=== PATIENT | female | born 1950 | race Caucasian/White ===

== ENCOUNTER 2016-07-30 09:42 | Observation (INO) | payer OTHER ==
[2016-07-13 13:33] VITALS: BMI 38.0; BMI 40.0
--- NOTE | 2016-07-13 14:22 | PAT Medication Instructions ---
Service Date Jul 13, 2016. Current Home Medication List Albuterol (Proair Hfa), 2 PUFFS INH Q4H PRN for Wheezing Anastrozole (Anastrozole), 1 MG PO QAM Aspirin (Aspirin Ec), 81 MG PO QAM Azithromycin (Zithromax), 250 MG PO UD PRN for Rescue Kit Diltiazem Hcl Ext Rel (Tiazac), 120 MG PO QAM Fish Oil ([place]-3), 1 CAP PO QAM Fluticasone Prop/Salmeterol (Advair Diskus 250/50 60 Dose), 1 PUFF INH QAM Furosemide (Furosemide), 20 MG PO QAM Insulin Aspart (Novolog Flexpen), 1 DOSE SC UD Insulin Glargine (Lantus), 75 UNITS SC AMPM Ipratropium-Albuterol (Duoneb), 1 TREATMENT INH Q4H PRN for Cough or Wheezing Levothyroxine Sodium (Levothyroxine Sodium), 100 MCG PO QAM Lisinopril (Lisinopril), 10 MG PO QAM Metoprolol Tartrate (Lopressor) (Lopressor), 12.5 MG PO BID Potassium (Potassium), 99 MG PO QAM Prednisone (Prednisone), 40 MG PO UD PRN for Rescue Kit Saline (Eq Saline Nasal [place]), 1 SPRAY NA BID PRN for Nasal Congestion Topiramate (Topamax ), 50 MG PO QAM Vitamin E (E-400-Clear), 1 CAP PO QAM Medication Instructions For Your Scheduled Surgery - Hold the following medications 2 weeks prior to surgery: Fish Oil ([place]-3), 1 CAP PO QAM Vitamin E (E-400-Clear), 1 CAP PO QAM - Hold the following medications 1 week prior to surgery per surgeon's instructions: Aspirin (Aspirin Ec), 81 MG PO QAM - Hold the following medications the morning of surgery: Furosemide (Furosemide), 20 MG PO QAM Insulin Aspart (Novolog Flexpen), 1 DOSE SC UD Potassium (Potassium), 99 MG PO QAM Lisinopril (Lisinopril), 10 MG PO QAM - Take the following medications the morning of surgery with a sip of water OTHERWISE NOTHING TO EAT OR DRINK AFTER MIDNIGHT: Albuterol (Proair Hfa), 2 PUFFS INH Q4H PRN for Wheezing (use if needed; BRING TO HOSPITAL) Anastrozole (Anastrozole), 1 MG PO QAM Diltiazem Hcl Ext Rel (Tiazac), 120 MG PO QAM Fluticasone Prop/Salmeterol (Advair Diskus 250/50 60 Dose), 1 PUFF INH QAM Metoprolol Tartrate (Lopressor) (Lopressor), 12.5 MG PO BID Levothyroxine Sodium (Levothyroxine Sodium), 100 MCG PO QAM Topiramate (Topamax ), 50 MG PO QAM Saline (Eq Saline Nasal [place]), 1 SPRAY NA BID PRN for Nasal Congestion Ipratropium-Albuterol (Duoneb), 1 TREATMENT INH Q4H PRN for Cough or Wheezing - Take the following medications as scheduled the night before surgery: Albuterol (Proair Hfa), 2 PUFFS INH Q4H PRN for Wheezing Insulin Glargine (Lantus), 75 UNITS SC AMPM Fluticasone Prop/Salmeterol (Advair Diskus 250/50 60 Dose), 1 PUFF INH QAM Insulin Aspart (Novolog Flexpen), 1 DOSE SC UD Metoprolol Tartrate (Lopressor) (Lopressor), 12.5 MG PO BID Saline (Eq Saline Nasal [place]), 1 SPRAY NA BID PRN for Nasal Congestion Ipratropium-Albuterol (Duoneb), 1 TREATMENT INH Q4H PRN for Cough or Wheezing -Check Blood Sugar AM of Surgery: -IF blood sugar is greater than 150, take HALF of usual morning dose of Lantus -IF blood sugar is less than 150, do not take any Lantus If you have any questions please call us at [phone] or [phone] or [phone]
--- NOTE | 2016-07-20 10:52 | Anesthesiology Progress Note ---
Anesthesia Progress Note Date of Service Jul 20, 2016. Progress Notes PCP note from 07/17 reviewed. Spoke with patient regarding medication changes. Insulin Lantus was switched to Insulin Degludec 150 units SC daily. Medication list updated. Patient advised to check glucose AM of surgery and if greater than 150, to take half of usual Insulin Degludec dose; and if glucose less than 150, to hold Insulin Degludec AM of surgery. Patient voiced understanding and all questions/concerns were addressed. Deepali Mendez PA-C
[2016-07-30] VITALS (10 sets, daily range): BP systolic 115–153; BP diastolic 55–77; PULSE 66–90; TEMP 36.4–36.7; O2SAT 93–97; BMI 40.0
[~2016-07-30] VITALS: Ht 170.2 cm; Wt 116.0 kg
[~2016-07-30 09:42] MED LIST: ADVIN25/60 INH; ALBU1AER9 INH; ANAS1TAB19 PO; ASPI81TA28 PO; AZIT250T PO; CEFAZOLIN 2000 MG/60 ML D5W IV SCH; DILT120C68 PO; FISHOIL PO; INSU1INJ33 SC; IPRASOL4 INH; LACTATED RINGER'S 1000ML 1,000 ML IV SCH; LEVO100T7 PO; LISI-461 PO; LSX20 PO; METO25TA56 PO; NVLGI/PEN SC; POTA99TA PO; PRED20TA PO; TOPI25TA99 PO; [UNRECOGNIZED DRUG - CODE]; [UNRECOGNIZED DRUG - CODE] PO
[2016-07-30] MEDS ORDERED: PROPOFOL IV EMULSION 10 MG/ML 20 ML VIAL IV ONE (10:18)
[2016-07-30] MEDS ORDERED: ROCURONIUM BROMIDE 10 MG/ML 5 ML VIAL ONE (10:18)
[2016-07-30] MEDS ORDERED: FENTANYL CITRATE INJ 50 MCG/1 ML 2 ML VIAL ONE (10:18)
[2016-07-30] MEDS ORDERED: GLYCOPYRROLATE INJ 0.2 MG/ML VIAL ONE (10:18)
[2016-07-30] MEDS ORDERED: NEOSTIGMINE METHYLSULFATE 5 MG/5 ML SYR ONE (10:18)
[2016-07-30] MEDS ORDERED: ONDANSETRON INJ 2 MG/ML 2 ML VIAL ONE (10:18)
[2016-07-30] MEDS ORDERED: DEXAMETHASONE SOD INJ 4 MG/ML VIAL ONE (10:18)
[2016-07-30] MEDS ORDERED: MIDAZOLAM HCL 1 MG/ML 2ML VIAL ONE (10:18)
[2016-07-30] MEDS ORDERED: LIDOCAINE HCL 2% 2 ML VIAL (20MG/ML) ONE (10:18)
--- NOTE | 2016-07-30 10:42 | History & Physical Bridge Note ---
H&P Re-Evaluation Bridge Note: I have examined the patient, reviewed the History & Physical and in the interval since the performance of the History & Physical I have noted the following changes of clinical significance: No changes noted
[2016-07-30] MEDS ORDERED: HEPARIN SOD (PORCINE) 1000 UNIT/ML 10 ML VIAL ONE (12:39)
[2016-07-30] MEDS ORDERED: BUPIVACAINE 0.5 % 5 MG/1 ML MPF 30ML VIAL ONE (12:40)
[2016-07-30] MEDS ORDERED: ONDANSETRON INJ 2 MG/ML 2 ML VIAL IV PRN ×2 (12:45→16:15)
[2016-07-30] MEDS ORDERED: EpHEDrine SULFATE INJ 50 MG/ML AMP IV PRN (12:45)
[2016-07-30] MEDS ORDERED: ATROPINE SULFATE 0.1 MG/ML 5ML SYR IV PRN (12:45)
[2016-07-30] MEDS ORDERED: PROMETHAZINE HCL INJ 6.25 MG in SODIUM CHLORIDE 0.9% 50ML 50 ML IV PRN (12:45)
[2016-07-30] MEDS ORDERED: CEFAZOLIN SOD 1 GM VIAL ONE (13:02)
[2016-07-30] MEDS: FENTANYL CITRATE INJ 50 MCG/1 ML 2 ML VIAL IV PRN ×2 (15:12→15:50)
[2016-07-30] MEDS ORDERED: SODIUM CHLORIDE 0.9% 1000ML 1,000 ML IV SCH (16:04)
--- NOTE | 2016-07-30 16:04 | [facility] Post Operative Brief Note ---
Immediate Operative Summary Operative Date Jul 30, 2016. Pre-Operative Diagnosis Abdominal pain and cholelithiasis Post-Operative Diagnosis Abdominal pain and cholelithiasis Procedure(s) Performed laparoscopic cholecystectomy Surgeon Dr Power Hall Automatic Maintainer Surgeon(s) Tyson MATA Estimated Blood Loss 5ML Findings See dictation Specimens A: Gallbladder Drains None Anesthesia General Complication(s) None Disposition Recovery Room / PACU
--- NOTE | 2016-07-30 16:07 | Discharge Instructions ---
Discharge Instructions Admission Reason for Admission: Abdominal Pain, Cholelithiasis Discharge Discharge Diagnosis / Problem: Same Discharge Goals Goal(s): Decrease discomfort Activity Recommendations Activity Limitations: per Instructions/Follow-up section Lifting Limitations: no more than 10 pounds Shower/Bathe: tomorrow (Shower only) . Instructions / Follow-Up Instructions / Follow-Up Post-Surgical ~ Discharge Instructions Activity Recommendations: - lifting limitation: (10 pounds for 2 weeks), - exercise/sex/sports limit: (nonstrenuous for 2 weeks), - driving or machine use limit: (none for 1 week), - Shower/bathe limit: (may shower beginning tomorrow) Diet: - Resume previous diet SPECIAL CARE INSTRUCTIONS: - May shower in 24 hours. Let water run over area and pat dry. - Call the surgeon's office with any questions or concerns - - (ex. temperature higher than 101 degrees F, excessive bleeding or pain). MEDICATIONS: - Resume previous medications unless instructed otherwise by your surgeon. - Ibuprofen 600 mg every 6 hours with food - Percocet 1 every 4 hours, as needed for pain FOLLOW UP VISIT: - If not already scheduled, please call the office to schedule a two week follow-up appointment. Office number Current Hospital Diet Patient's current hospital diet: Discharge Diet Recommended Diet: Diabetes Type 2 Diet Procedures Procedures Performed: laparoscopic cholecystectomy Pending Studies Studies pending at discharge: no Medical Emergencies . Who to Call and When: Medical Emergencies: If at any time you feel your situation is an emergency, please call 911 immediately. . Non-Emergent Contact Non-Emergency issues call your: Primary Care Provider, Surgeon Call Non-Emergent contact if: your pain is worsening, wound has increased redness, wound has increased pain . "Provider Documentation" section prepared by Power Hall. VTE Core Measure Inpt VTE Proph given/why not?: Treatment not indicated
[2016-07-30] MEDS ORDERED: OXYCODONE/ACETAMINOPHEN 5-325 TAB PO PRN (16:15)
[2016-07-30] MEDS ORDERED: MoRPHine SULFATE 4 MG/ML 1 ML CARP\\VIAL IV PRN (16:15)
[2016-07-30] MEDS: HYDROmorphone INJ 1 MG/ML SYR IV PRN ×3 (16:19→16:29)
[2016-07-30] MEDS ORDERED: KETOROLAC TROMETHAMINE 30 MG/ML VIAL ONE (16:38)
[2016-07-30] MEDS ORDERED: ACETAMINOPHEN 1000 MG/100 ML IV IV ONE ×2 (16:38→16:45)
[2016-07-30] MEDS ORDERED: KETOROLAC TROMETHAMINE 30 MG/ML VIAL IV. PRN (16:45)
--- NOTE | 2016-07-30 17:14 | Anesthesiology Progress Note ---
Anesthesia Post Op Note Date & Time Jul 30, 2016 at 17:13 Vital Signs Pain Intensity: 6 Vital Signs Past 12 Hours Date Time Temp Pulse Resp B/P Pulse Ox O2 Delivery O2 Flow Rate FiO2 07/30/16 17:00 36.4 62 17 141/59 95 Nasal Cannula 2 07/30/16 16:50 62 23 144/60 94 Nasal Cannula 2 07/30/16 16:40 62 20 137/61 93 Nasal Cannula 2 07/30/16 16:30 64 20 140/65 95 Nasal Cannula 2 07/30/16 16:20 58 20 138/64 95 Nasal Cannula 2 07/30/16 16:10 58 19 143/67 88 Room Air 07/30/16 16:00 57 21 140/58 98 Mask 10 07/30/16 15:50 56 20 141/70 99 Mask 10 07/30/16 15:40 59 17 138/72 99 Mask 10 07/30/16 15:30 57 15 134/67 98 Mask 10 07/30/16 15:20 65 16 130/85 97 Mask 10 07/30/16 15:10 56 17 125/65 94 Mask 10 07/30/16 15:04 36.0 57 17 123/74 95 Mask 10 07/30/16 10:33 36.7 73 20 153/73 96 Room Air Notes Mental Status: alert / awake / arousable, participated in evaluation Pt Amnestic to Procedure: Yes Nausea / Vomiting: adequately controlled Pain: adequately controlled, improving with treatment Airway Patency, RR, SpO2: stable & adequate BP & HR: stable & adequate Hydration State: stable & adequate Anesthetic Complications: no major complications apparent Poorly controlled pain initially however patient very sensitive to opioid medications. Decided to switch to dose of toradol and IV tylenol with improvement of pain. Appears appropriate for transfer to phase 2 recovery.
[2016-07-30] MEDS ORDERED: NURSING VERBAL MED ORDER ONE ×2 (18:15)
--- NOTE | 2016-07-30 18:20 | Anesthesiology Progress Note ---
Anesthesia Progress Note Date of Service Jul 30, 2016. Progress Notes Ms. Cervantes had improved pain control in phase 2 recovery but nursing called because she would often desaturate while sleeping. She went as low as 76 at one point. Given that she appears to have risk factors for sleep apnea and appears sensitive to narcotic medications, i felt it was best she be admitted and taken to the floor with supplemental oxygen along with continuous pulse oximetry. Of note, when patient is awake she participates in incentive spirometry and her SpO2 is in high 90's but its when she falls to sleep that I worry would be problematic this first operative night. Attending surgeon was made aware and agrees. Patient will be admitted with continuous pulse ox and supplemental NC oxygen. Patient and in agreement and all questions answered.
--- NOTE | 2016-07-30 18:37 | OPERATIVE REPORT ---
DATE OF OPERATION: 07/30/2016 PREOPERATIVE DIAGNOSIS: Cholelithiasis, chronic cholecystitis. POSTOPERATIVE DIAGNOSIS: Same. PROCEDURE: Laparoscopic cholecystectomy. SURGEON: Dr. Hall. FINDINGS: The gallbladder had some stones within its lumen. It was not dilated. The cystic duct was not dilated. There was a significant intrahepatic component to the gallbladder. The liver was of normal size. It did have a fatty appearance to it. The visible bowel appeared normal. TECHNIQUE: The patient was given a general anesthetic and the area was prepped and draped in the usual sterile fashion. Transverse incision was made to the sclera below the umbilicus, carried down through the subcutaneous tissue to the fascia which was grasped with 2 Yuri clamps and incised between. The peritoneum was identified, incised, and the introducer was placed bluntly. The abdomen was then insufflated to a pressure of 15 mmHg with carbon dioxide. The upper midline, mid clavicular and anterior axillary introducers were placed under direct vision through small skin incisions. Traction was placed on the gallbladder and the peritoneum overlying the infundibulum was opened. This was peeled down towards the common bile duct. I then opened the peritoneum on the medial side and up along the infundibulum on the medial side. That allowed a little better mobility and I was able then to open the peritoneum on the lateral side. There was most likely some thickened lymphatics that were on the lateral side of the infundibulum. I isolated, clamped and divided, which allowed better mobility. I then divided the attachments of the gallbladder in the lower body area on the medial and lateral side and then was able to elevate the infundibulum and establish a plane behind the cystic duct. Additional fatty tissue was peeled off the cystic duct at the medial side, I was able to identify the cystic duct gallbladder junction. Once I had the plane behind there I was able to place 3 clips proximally, and one near the gallbladder and divide it. That allowed me to elevate the infundibulum and dissect behind it. There was another large lymphatic that was clamped and divided, but that exposed the cystic artery which was isolated 360 degrees. Two clips were placed proximally and one near the gallbladder and was divided. The gallbladder was then peeled off the liver bed and placed into an Endobag and brought out through the upper midline incision. The introducer was replaced and liver edge was elevated. Once the graspers had created a small hole in the gallbladder, so there was some bile in the right upper quadrant that was removed after irrigation. It was irrigated and irrigation removed. That was repeated until the bile was removed and the return was clear. There was 1 small vessel that appeared to be bleeding that was easily controlled with clip. The subdiaphragmatic and subhepatic spaces were irrigated again. The gallbladder bed and liver was inspected, there was no bleeding. The gas was allowed to escape, removed using suction. The introducers were removed and the fascia of the umbilical and upper midline introducer sites was closed with interrupted 0 Vicryl and skin of all the incisions were closed with 4-0 Monocryl in either an interrupted or running subcuticular fashion. The skin was anesthetized with 0.5% Marcaine. The skin was cleansed, dried, benzoin placed, Steri-Strips applied. Estimated blood loss was 5 mL. Sponge, needle and instrument counts were correct prior to closure. The patient tolerated the surgical procedure without complication and was transferred to recovery. I attest to the content of the Intraoperative Record and any orders documented therein. Any exceptions are noted below. CORRIED
[2016-07-30] MEDS ORDERED: PHARMACY GLYCEMIC MGMT CONSULT PRN (18:45)
[2016-07-30] MEDS ORDERED: IV FLUIDS COMPLETED PRN (21:00)
[2016-07-30] MEDS ORDERED: INSULIN GLARGINE SOLOSTAR 100 UNITS/ML 3 ML PEN SC SCH (21:00)
--- NOTE | 2016-07-30 21:10 | Pharmacy Progress Note ---
Glycemic Control Intl Consult Date of Service Jul 30, 2016. Scope Glycemic Pharmacist consulted by Dr Hall on 07/30/16 for glycemic control and to write orders per [facility] inpatient glycemic control protocol Objective Weight (Kilograms): 116.000 Accuchecks BSG (last 24hrs): Test 07/30/16 10:21 07/30/16 12:13 07/30/16 15:08 07/30/16 18:31 Bedside Glucose 246 mg/dl (70-90) 227 mg/dl (70-90) 231 mg/dl (70-90) 285 mg/dl (70-90) Recent Pertinent Medications Outpatient Anti-diabetic Regimen: * Tresiba 150 u daily * Novolog ss with meals and snacks * Patient is unsure of scale but was able to give me average doses * Breakfast typically ~15 units * Lunch typically ~8 units * Dinner typically ~20 units * Snacks typically uses a carb ratio of 8 * A1c = 9.3 % 04/2016 Risk Factors for Insulin Resistance: * Steroids: Dexamethasone 8 mg IV intraop * Recent Surgery: POD #0 * Diet: T2DM Assessment & Plan ASSESSMENT: * 66 yo F admitted for laparoscopic cholecystectomy, POD#0 * I spoke with patient regarding outpatient glycemic control * BSGs have been very uncontrolled for the last 6 months, Average BSGs 200-300' s * She states she lost her insurance, and has been switched from Lantus to Tresiba (less than 2 weeks ago) * She averages 200 + units of insulin as an outpatient * A1cs have been on the rise with her most recent A1c 9.3%- she is disappointed and frustrated with her control * She is agreeable to transitioning to basal/bolus regimen with Lantus + Novolog while inpatient * IV dexamethasone given intraoperatively will cause her BSGs to rise; however her baseline was mid 200's prior to surgery * My plan will be to initiate weight-based doing with a stress of 3 * Overnight pharmacist will tighten if necessary through the evening * ADA & AACE recommend a goal blood sugar range 140-180 mg/dl for the majority of critically ill & non-critically ill patients. However, more stringent targets may be selected in individual cases. To better combat high BSGs, tighten to 100-140mg/dL. PLAN FOR INPATIENT GLYCEMIC CONTROL: * Basal insulin with LANTUS 30 units SQ BID * Correctional Insulin with NOVOLOG per scale ACHS or Q6hrs while NPO * Goal Range: Low 100 mg/dL - High 140 mg/dL * Correction Factor: 15 mg/dL/unit * Nutritional / Prandial insulin per carb ratio of 1 unit per 5 grams CHO consumed * A1c on order for tomorrow with AM labs * Please note that the plan above was derived based on current level of insulin resistance and hospital stress. These recommendations are appropriate for inpatient admission only. Plan of care upon discharge will need to be reassessed to avoid potential outpatient hypo/hyperglycemia. Thank you.
[2016-07-30] MEDS: INSULIN ASPART 100 UNITS/ML 3 ML PEN SC SCH (22:19)
[2016-07-30] MEDS: INSULIN GLARGINE SOLOSTAR 100 UNITS/ML 3 ML PEN SC SCH (22:20)
[2016-07-31] MEDS: INSULIN ASPART 100 UNITS/ML 3 ML PEN SC SCH ×3 (00:28→09:06)
[2016-07-31] MEDS ORDERED: INSULIN ASPART 100 UNITS/ML 3 ML PEN SC SCH (02:00)
[2016-07-31 03:40] VITALS: BP 142/73; PULSE 84; TEMP 36.4; O2SAT 98
--- NOTE | 2016-07-31 07:19 | Surgery Progress Note ---
Surgery Progress Note Date of Service Jul 31, 2016. Subjective Post OP Day: 1 + diet (tolerated regular diet), + pain controlled, No SOB (pulse ox while I was in the room ranged from 92-97% on room air), No nausea, No vomiting Objective Vital Signs: Date Time Temp Pulse Resp B/P Pulse Ox O2 Delivery O2 Flow Rate FiO2 07/31/16 03:40 36.4 84 20 142/73 98 Nasal Cannula 2.0 07/31/16 02:40 Nasal Cannula 2.0 07/31/16 00:25 Room Air 07/30/16 23:03 36.4 73 20 121/68 93 Room Air 07/30/16 21:48 36.7 90 17 115/77 95 Nasal Cannula 07/30/16 20:46 95 Nasal Cannula 2.0 07/30/16 20:45 36.5 75 18 131/74 95 Nasal Cannula 2.0 07/30/16 20:39 95 Nasal Cannula 2.0 07/30/16 19:21 36.4 86 18 126/58 97 Nasal Cannula 2 07/30/16 18:15 69 16 140/61 95 Nasal Cannula 2 07/30/16 17:40 36.7 66 16 140/55 95 Nasal Cannula 2 07/30/16 17:05 36.6 67 18 140/64 95 Nasal Cannula 2 07/30/16 17:00 36.4 62 17 141/59 95 Nasal Cannula 2 07/30/16 16:50 62 23 144/60 94 Nasal Cannula 2 07/30/16 16:40 62 20 137/61 93 Nasal Cannula 2 07/30/16 16:30 64 20 140/65 95 Nasal Cannula 2 07/30/16 16:20 58 20 138/64 95 Nasal Cannula 2 07/30/16 16:10 58 19 143/67 88 Room Air 07/30/16 16:00 57 21 140/58 98 Mask 10 07/30/16 15:50 56 20 141/70 99 Mask 10 07/30/16 15:40 59 17 138/72 99 Mask 10 07/30/16 15:30 57 15 134/67 98 Mask 10 07/30/16 15:20 65 16 130/85 97 Mask 10 07/30/16 15:10 56 17 125/65 94 Mask 10 07/30/16 15:04 36.0 57 17 123/74 95 Mask 10 07/30/16 10:33 36.7 73 20 153/73 96 Room Air Abdomen: + tenderness (Incisional only) Incision(s): clean, dry, intact, no erythema, no drainage Laboratory Results: Results Past 24 Hours Test 07/30/16 10:21 07/30/16 12:13 07/30/16 15:08 07/30/16 18:31 Range/Units Bedside Glucose 246 227 231 285 70-90 mg/dl Test 07/30/16 20:56 07/31/16 00:09 07/31/16 03:35 Range/Units Bedside Glucose 336 319 192 70-90 mg/dl Assessment & Plan S/P lap ladarius Doing well D/C to home Instructions discussed
[2016-07-31 07:20] VITALS: BP 137/81; PULSE 81; TEMP 36.7; O2SAT 94
[2016-07-31 07:49] VITALS: BP 137/81; PULSE 81; TEMP 36.7; O2SAT 94
[2016-07-31] MEDS ORDERED: INSULIN GLARGINE SOLOSTAR 100 UNITS/ML 3 ML PEN SC SCH (09:00)
[2016-07-31] MEDS: INSULIN GLARGINE SOLOSTAR 100 UNITS/ML 3 ML PEN SC SCH (09:00)
[2016-07-31 13:57] VITALS: Ht 170.2 cm; Wt 116.0 kg
== END 2016-07-31 10:30 | disposition home or self-care (01) ==
LOC: CANRESERV → ENRESERVDT → ENRESERVTM → C.ACU 09:42 → C.MSW 10:25 → EDBEDREQ 19:01 → CMPBEDREQ 19:16
PROVIDERS: ADMIT Surgery; ATTEND Surgery
DX: K80.10 Calculus of gallbladder with chronic cholecystitis without obstruction (principal); E11.9 Type 2 diabetes mellitus without complications; E03.9 Hypothyroidism, unspecified; Z86.010 Personal history of colon polyps; Z85.3 Personal history of malignant neoplasm of breast; Z90.10 Acquired absence of unspecified breast and nipple; Z79.82 Long term (current) use of aspirin; Z79.4 Long term (current) use of insulin; Z87.891 Personal history of nicotine dependence

== ENCOUNTER 2016-08-06 18:56 | Emergency (ER) | payer OTHER ==
[~2016-08-06] VITALS: Ht 170.2 cm; Wt 114.0 kg
[~2016-08-06 18:56] MED LIST changes: -CEFAZOLIN 2000 MG/60 ML D5W IV SCH; -LACTATED RINGER'S 1000ML 1,000 ML IV SCH
[2016-08-06 18:59] VITALS: TEMP 36.9; Ht 170.2 cm; Wt 114.0 kg
[2016-08-06] MEDS ORDERED: ALBUT/IPRATROP 3MG/0.5MG NEB 3 ML VIAL INH STA (19:45)
[2016-08-06] MEDS ORDERED: KETOROLAC TROMETHAMINE 30 MG/ML VIAL IV STA (19:45)
[2016-08-06] MEDS ORDERED: SODIUM CHLORIDE 0.9% 1000ML 1,000 ML IV STA (19:45)
[2016-08-06 19:50] VITALS: O2SAT 94
[2016-08-06 20:12] LABS: BASO % 0.3 %; BASO ABS # 0.03 K/uL (0-0.2); COMPLETE YES; EOS % 4.7 %; IG% 0.2 %; LYMPH % 18.9 %; LYMPH ABS # 1.91 K/uL (1.2-3.4); MEAN CELL VOLUME 85.7 fL (80-100); MEAN CORPUSCULAR HEMOGLOBIN 28.9 pg (25-34); MEAN CORPUSCULAR HGB CONC 33.8 g/dl (32-36); MONO % 7.3 %; NEUT % 68.6 %; PLATELET COUNT 228 K/uL (130-400); RED BLOOD COUNT 4.67 M/uL (4.2-5.4); WHITE BLOOD COUNT 10.12 K/uL (4.8-10.8)
[2016-08-06 20:23] LABS: PARTIAL THROMBOPLASTIN RATIO 0.9; PROTHROMBIN TIME (PATIENT) 10.4 SECONDS (9.0-12.0)
[2016-08-06 20:26] LABS: POINT OF CARE PRO-BNP 15 pg/ml (0-900)
[2016-08-06 20:28] LABS: ALT/SGPT 28 U/L (12-78); AST/SGOT 10 U/L (15-37); BLOOD UREA NITROGEN 18 mg/dl (7-18); BUN/CREATININE RATIO 17.7 (10-20); CALCIUM 8.7 mg/dl (8.5-10.1); CARBON DIOXIDE 26 mmol/L (21-32); CHLORIDE 104 mmol/L (98-107); GLUCOSE 311 mg/dl (70-99); POTASSIUM 4.1 mmol/L (3.5-5.1); SODIUM 140 mmol/L (136-145)
[2016-08-06 20:32] LABS: ALKALINE PHOSPHATASE 121 U/L (45-117)
--- NOTE | 2016-08-06 20:33 | DIAGNOSTIC IMAGING REPORT ---
TWO VIEW CHEST CLINICAL HISTORY: Cough. Atypical chest pain. FINDINGS: PA and lateral chest radiographs are compared to study dated 04/22/2016. The examination is degraded by large body habitus. The heart is mildly enlarged and there is atherosclerotic calcification of the thoracic aorta. The pulmonary vasculature is noncongested. Chronic interstitial thickening is similar to previous. Trace pleural effusions are identified and there is bibasilar atelectasis. Linear atelectasis versus scarring is again seen in the left lower lung. There is no pneumothorax. The skeletal structures are osteopenic. The bony thorax appears intact. Surgical clips are noted in the right axilla. IMPRESSION: 1. Cardiomegaly without radiographic evidence of congestive failure. 2. Trace pleural effusions and bibasilar atelectasis. Electronically signed by: Jay Sultana M.D. 08/06/2016 8:32 PM Dictated Date/Time: 08/06/2016 8:30 PM
[2016-08-06 20:39] LABS: BETA-HYDROXYBUTYRATE 0.81 mg/dL (0.2-2.81); CKMB/CK RATIO 1.2 (0-3.0)
[2016-08-06] MEDS ORDERED: OPTIRAY 320 IV PRN (20:45)
--- NOTE | 2016-08-06 21:28 | DIAGNOSTIC IMAGING REPORT ---
CT ANGIOGRAM OF THE CHEST CLINICAL HISTORY: Atypical chest pain. COMPARISON STUDY: Chest radiographs dated 08/06/2016. TECHNIQUE: Following the IV administration of 100 cc of Optiray 320, CT angiogram of the chest was performed from the upper abdomen to the thoracic inlet utilizing the pulmonary embolus protocol. Images are reviewed in the axial, sagittal, and coronal planes. 3-D MIPS images are created and assessed. IV contrast was administered without complication. CT DOSE: 657.22 mGy.cm FINDINGS: Thyroid: Atrophic. Thoracic aorta: There is mild atherosclerotic calcification of the thoracic aorta, which is normal in caliber and demonstrates standard 3-vessel arch anatomy. No dissection is seen. Pulmonary vasculature: The pulmonary trunk is normal in caliber. There are no filling defects identified in main, lobar, or segmental pulmonary branches to suggest pulmonary embolus. Heart: The heart is top normal in size and without pericardial effusion. There are scattered coronary artery calcifications. Lungs and pleural spaces: There are trace pleural effusions with bibasilar scarring versus atelectasis. No airspace consolidation is seen typical for pneumonia. Scattered calcified granulomas are observed. Minimal nodular thickening is seen along the left major fissure. Minimal secretions are noted in the left mainstem bronchus. The trachea is clear. Mediastinum: There are mildly enlarged mediastinal lymph nodes. A precarinal node on image #164 measures 13 mm in short axis. A subcarinal node on image #154 measures 10 mm in short axis. Natasha: Mildly enlarged hilar lymph nodes measure up to 1.1 cm in short axis. Axillae: Surgical clips are noted in the right axilla. There is no axillary lymphadenopathy. Upper abdomen: The liver is steatotic. A calcified hepatic granulomas noted. There is a tiny hiatal hernia. Skeletal structures: Skeletal structures are osteopenic. No lytic or blastic bony lesions are seen. Soft tissues: Bilateral breast implants are noted. IMPRESSION: 1. There is no evidence of pulmonary embolus in the main, lobar, or segmental pulmonary arteries. 2. There are trace pleural effusions with bibasilar scarring/atelectasis. No airspace consolidation is seen typical for pneumonia. 3. Mildly enlarged mediastinal and hilar lymph nodes are nonspecific and may be on a reactive basis. 4. Hepatic steatosis. 5. Additional changes as above. Electronically signed by: Jay Sultana M.D. 08/06/2016 9:26 PM Dictated Date/Time: 08/06/2016 9:21 PM
[2016-08-06 22:32] VITALS: BP 128/56; PULSE 72; O2SAT 94
[2016-08-06] MEDS ORDERED: CEFU500T16 PO (22:44)
--- NOTE | 2016-08-06 22:45 | EMERGENCY ROOM VISIT NOTE ---
History First contact with patient: 19:06 Chief Complaint: CHEST PAIN Stated Complaint: CHEST PAIN.SOB,SINUS INFECTION Nursing Triage Summary: Patient presents s/p lap ladarius one week ago. Patient reports left sinus congestion and pressure, left ear pressure. Patient also reprots sore throat s/p surgery. Patient also reprots non specific chest pain that started after surgery. Increasing in severity with deep inspiration. Patient denies any SOB , nausea, vomiting. Negative fever/chills. History of Present Illness The patient is a 66 year old female who presents to the Emergency Room with complaints of chest pain. The patient states that she had a laparoscopic cholecystectomy on July [address] Hall. Since that time she has had a dry s scratchy throat, sinus pressure and now has pain into her left ear. She states this is been going on for 7 days. She states that she has a lot of nasal congestion with light yellow purulent drainage. She also states that she feels more short of breath and chest pain across her entire chest. She she states she does have fever and chills although her temperature appears normal but she states she normally runs lower than 98. The patient also admits to generalized abdominal pain and nausea. The patient denies any vomiting. She states that her last bowel movement was on Saturday and was formed and brown. The patient states that she does have a history of asthma but has not used her nebulizer. She also has a rescue pack of prednisone and Zithromax which she did not take. She did try some [id number] antihistamine and Nasonex. The patient states that she quit smoking in April 2016. The patient does admit to leg pain but she has lymphedema and always has leg pain. She called Dr. Barillas her PCP about her symptoms twice this week without any call back to get an appointment therefore she came to the emergency room this evening. Review of Systems 10 system review was performed and was negative unless stated otherwise history of present illness. Past Medical/Surgical History Medical Problems: (1) Asthma (2) Benign neoplasm of colon (3) Benign neoplasm of pituitary gland (4) Breast cancer (5) COPD, moderate (6) DM type 2 (diabetes mellitus, type 2) (7) HTN (hypertension) (8) Hypothyroidism (9) IBS (irritable bowel syndrome) (10) Lymphedema Surgical Problems: (1) H/O bladder repair surgery (2) H/O breast reconstruction (3) H/O colonoscopy (4) H/O cystoscopy (5) History of dental surgery (6) History of salpingo-oophorectomy (7) S/P dilation and curettage (8) S/P laparoscopic cholecystectomy (9) S/P laparoscopy (10) S/P mastectomy (11) S/P nasal surgery (12) S/P tubal ligation Family History Asthma Diabetes mellitus FH: Crohn's disease MOTHER AUNT FH: cancer GRANDFATHER (colon CA) GRANDMOTHER (uterine CA) No Family History of: Kidney disease Social History Smoking Status: Former Smoker Drug Use: none Marital Status: Occupation Status: retired Current/Historical Medications Scheduled Anastrozole (Arimidex), 1 MG PO QAM Aspirin (Aspirin Ec), 81 MG PO QAM Diltiazem Hcl Ext Rel (Tiazac), 120 MG PO QAM Fish Oil ([place]-3), 1 CAP PO QAM Fluticasone Prop/Salmeterol (Advair Diskus 250/50 60 Dose), 1 PUFF INH QAM Furosemide (Furosemide), 20 MG PO QAM Insulin Aspart (Novolog Flexpen), 1 DOSE SC UD Insulin Degludec (Tresiba Flextouch), 150 UNITS SC DAILY Levothyroxine Sodium (Levothyroxine Sodium), 100 MCG PO QAM Lisinopril (Lisinopril), 10 MG PO QAM Metoprolol Tartrate (Lopressor) (Lopressor), 12.5 MG PO BID Potassium (Potassium), 99 MG PO QAM Topiramate (Topamax ), 50 MG PO QAM Vitamin E (E-400-Clear), 1 CAP PO QAM Scheduled PRN Albuterol (Proair Hfa), 2 PUFFS INH Q4H PRN for Wheezing Azithromycin (Zithromax), 250 MG PO UD PRN for Rescue Kit Ipratropium-Albuterol (Duoneb), 1 TREATMENT INH Q4H PRN for Cough or Wheezing Prednisone (Prednisone), 40 MG PO UD PRN for Rescue Kit Saline (Eq Saline Nasal [place]), 1 SPRAY NA BID PRN for Nasal Congestion Allergies Coded Allergies: Quinolones (Verified Allergy, Intermediate, CIPRO-HIVES, 07/13/16) Latex1 -Allergic Contact Dermititis (Unverified Allergy, Mild, rash, and blisters, 07/13/16) Codeine (Verified Allergy, Unknown, hallucinations, 07/13/16) Metformin (Unverified Allergy, Unknown, gi upset , 07/13/16) Sitagliptin (Verified Allergy, Unknown, GI SYMPTOMS, 07/13/16) Adhesives (Unverified Adverse Reaction, Unknown, rash, 07/13/16) Physical Exam Vital Signs Date Time Temp Pulse Resp B/P Pulse Ox O2 Delivery O2 Flow Rate FiO2 08/06/16 22:32 72 16 128/56 94 08/06/16 22:02 77 08/06/16 21:26 75 17 93 08/06/16 21:21 134/69 08/06/16 19:56 78 17 08/06/16 19:50 94 Room Air 08/06/16 19:50 93 08/06/16 19:37 125/70 08/06/16 19:26 85 21 08/06/16 19:12 93 08/06/16 18:59 36.9 84 26 158/70 98 Room Air Physical Exam PHYSICAL EXAM: Vital Signs were reviewed: Temperature 36.9, blood pressure 158/ 70, pulse 84, respiratory rate 26 Reviewed Nurse's notes and agree. Oxygen saturation is 98 % on room air which is normal . GENERAL: 66-year-old white female appears in no acute distress. MENTAL STATUS: Alert, oriented, coherent. EARS: Canals clear. Left TM with purulent fluid level noted. Right TM good light reflex, no erythema or fluid level noted. NOSE: Nasal mucosa with moderate erythema engorgement. PHARYNX: No erythema, no edema noted. No exudate noted. Airway is adequate. SINUSES: Maxillary and frontal sinuses diffusely tender to percussion. NECK: Supple, non-tender. No lymphadenopathy noted. LUNGS : Clear to auscultation without wheezes rales or rhonchi. The patient has a deep congested cough throughout clinical encounter. CARDIAC: Regular rate and rhythm without murmur. ABDOMEN: Soft, multiple healing scars noted from recent cholecystectomy. No erythema or any signs of infection. Soft, nontender to palpation. LOWER EXTREMITIES: Patient has edema noted to both lower legs and tenderness which is chronic. No erythema noted. No palpable cords. Medical Decision & Procedures ER Provider Diagnostic Interpretation: TWO VIEW CHEST CLINICAL HISTORY: Cough. Atypical chest pain. FINDINGS: PA and lateral chest radiographs are compared to study dated 04/22/2016. The examination is degraded by large body habitus. The heart is mildly enlarged and there is atherosclerotic calcification of the thoracic aorta. The pulmonary vasculature is noncongested. Chronic interstitial thickening is similar to previous. Trace pleural effusions are identified and there is bibasilar atelectasis. Linear atelectasis versus scarring is again seen in the left lower lung. There is no pneumothorax. The skeletal structures are osteopenic. The bony thorax appears intact. Surgical clips are noted in the right axilla. IMPRESSION: 1. Cardiomegaly without radiographic evidence of congestive failure. 2. Trace pleural effusions and bibasilar atelectasis. CT ANGIOGRAM OF THE CHEST CLINICAL HISTORY: Atypical chest pain. COMPARISON STUDY: Chest radiographs dated 08/06/2016. TECHNIQUE: Following the IV administration of 100 cc of Optiray 320, CT angiogram of the chest was performed from the upper abdomen to the thoracic inlet utilizing the pulmonary embolus protocol. Images are reviewed in the axial, sagittal, and coronal planes. 3-D MIPS images are created and assessed. IV contrast was administered without complication. CT DOSE: 657.22 mGy.cm FINDINGS: Thyroid: Atrophic. Thoracic aorta: There is mild atherosclerotic calcification of the thoracic aorta, which is normal in caliber and demonstrates standard 3-vessel arch anatomy. No dissection is seen. Pulmonary vasculature: The pulmonary trunk is normal in caliber. There are no filling defects identified in main, lobar, or segmental pulmonary branches to suggest pulmonary embolus. Heart: The heart is top normal in size and without pericardial effusion. There are scattered coronary artery calcifications. Lungs and pleural spaces: There are trace pleural effusions with bibasilar scarring versus atelectasis. No airspace consolidation is seen typical for pneumonia. Scattered calcified granulomas are observed. Minimal nodular thickening is seen along the left major fissure. Minimal secretions are noted in the left mainstem bronchus. The trachea is clear. Mediastinum: There are mildly enlarged mediastinal lymph nodes. A precarinal node on image #164 measures 13 mm in short axis. A subcarinal node on image #154 measures 10 mm in short axis. Natasha: Mildly enlarged hilar lymph nodes measure up to 1.1 cm in short axis. Axillae: Surgical clips are noted in the right axilla. There is no axillary lymphadenopathy. Upper abdomen: The liver is steatotic. A calcified hepatic granulomas noted. There is a tiny hiatal hernia. Skeletal structures: Skeletal structures are osteopenic. No lytic or blastic bony lesions are seen. Soft tissues: Bilateral breast implants are noted. IMPRESSION: 1. There is no evidence of pulmonary embolus in the main, lobar, or segmental pulmonary arteries. 2. There are trace pleural effusions with bibasilar scarring/atelectasis. No airspace consolidation is seen typical for pneumonia. 3. Mildly enlarged mediastinal and hilar lymph nodes are nonspecific and may be on a reactive basis. 4. Hepatic steatosis. 5. Additional changes as above. Electronically signed by: Jay Sultana M.D. 08/06/2016 9:26 PM Dictated Date/Time: 08/06/2016 9:21 PM Laboratory Results 08/06/16 20:00 Red Blood Count 4.67, Mean Corpuscular Volume 85.7, Mean Corpuscular Hemoglobin 28.9, Mean Corpuscular Hemoglobin Concent 33.8, Mean Platelet Volume 11.0, Neutrophils (%) (Auto) 68.6, Lymphocytes (%) (Auto) 18.9, Monocytes (%) (Auto) 7.3, Eosinophils (%) (Auto) 4.7, Basophils (%) (Auto) 0.3, Neutrophils # (Auto) 6.94, Lymphocytes # (Auto) 1.91, Monocytes # (Auto) 0.74, Eosinophils # (Auto) 0.48, Basophils # (Auto) 0.03 08/06/16 20:00 Test 08/06/16 20:00 08/06/16 20:03 08/06/16 22:02 White Blood Count 10.12 K/uL (4.8-10.8) Red Blood Count 4.67 M/uL (4.2-5.4) Hemoglobin 13.5 g/dL (12.0-16.0) Hematocrit 40.0 % (37-47) Mean Corpuscular Volume 85.7 fL (80-100) Mean Corpuscular Hemoglobin 28.9 pg (25-34) Mean Corpuscular Hemoglobin Concent 33.8 g/dl (32-36) Platelet Count 228 K/uL (130-400) Mean Platelet Volume 11.0 fL (7.4-10.4) Neutrophils (%) (Auto) 68.6 % Lymphocytes (%) (Auto) 18.9 % Monocytes (%) (Auto) 7.3 % Eosinophils (%) (Auto) 4.7 % Basophils (%) (Auto) 0.3 % Neutrophils # (Auto) 6.94 K/uL (1.4-6.5) Lymphocytes # (Auto) 1.91 K/uL (1.2-3.4) Monocytes # (Auto) 0.74 K/uL (0.11-0.59) Eosinophils # (Auto) 0.48 K/uL (0-0.5) Basophils # (Auto) 0.03 K/uL (0-0.2) RDW Standard Deviation 43.4 fL (36.4-46.3) RDW Coefficient of Variation 14.0 % (11.5-14.5) Immature Granulocyte % (Auto) 0.2 % Immature Granulocyte # (Auto) 0.02 K/uL (0.00-0.02) Prothrombin Time 10.4 SECONDS (9.0-12.0) Prothromb Time International Ratio 1.0 (0.9-1.1) Activated Partial Thromboplast Time 24.5 SECONDS (21.0-31.0) Partial Thromboplastin Ratio 0.9 Anion Gap 10.0 mmol/L (3-11) Est Creatinine Clear Calc Drug Dose 74.1 ml/min Estimated GFR () 69.0 Estimated GFR (Non- 59.5 BUN/Creatinine Ratio 17.7 (10-20) Calcium Level 8.7 mg/dl (8.5-10.1) Total Bilirubin 0.3 mg/dl (0.2-1) Direct Bilirubin < 0.1 mg/dl (0-0.2) Aspartate Amino Transf (AST/SGOT) 10 U/L (15-37) Alanine Aminotransferase (ALT/SGPT) 28 U/L (12-78) Alkaline Phosphatase 121 U/L (45-117) Total Creatine Kinase 41 U/L (26-192) Creatine Kinase MB 0.5 ng/ml (0.5-3.6) Creatine Kinase MB Ratio 1.2 (0-3.0) Total Protein 7.3 gm/dl (6.4-8.2) Albumin 3.3 gm/dl (3.4-5.0) Lipase 209 U/L (73-393) Beta-Hydroxybutyric Acid 0.81 mg/dL (0.2-2.81) Bedside D-Dimer > 450 ng/mlFEU (0-450) TV-Piq-D-Type Natriuretic Peptide 15 pg/ml (0-900) Bedside Troponin I 0.000 ng/ml (0-0.045) Medications Administered Medications (Trade) Dose Ordered Sig/Uriel Route Start Time Stop Time Status Last Admin Dose Admin Sodium Chloride (Nss 1000ml) 1,000 ml @ 999 mls/hr Q1H1M STAT IV 08/06/16 19:45 08/06/16 20:45 DC 08/06/16 20:07 999 MLS/HR Albuterol/ Ipratropium (Duoneb) 3 ml NOW STAT INH 08/06/16 19:45 08/06/16 19:49 DC 08/06/16 20:06 3 ML Ketorolac Tromethamine (Toradol Inj) 30 mg NOW STAT IV 08/06/16 19:45 08/06/16 19:49 DC 08/06/16 20:07 30 MG ED Course The patient was evaluated. IV access was obtained. CBC and differential, renal profile, LFTs and lipase levels were ordered. Coags, CK-MB, point-of- care troponin, pointing care d-dimer and pointing care BNP was ordered. Labs are reviewed. The patient's white count was normal. Troponin was negative. The patient's glucose was elevated at 311. D-dimer was elevated at 981. The patient was given a nebulized treatment. Posttreatment there was increased air movement without any wheezes rales or rhonchi. Chest x-ray was ordered and interpreted by the radiologist as above with bilateral atelectasis and small pleural effusion. No evidence of pneumonia. A CT of the chest for PE was ordered and interpreted by the radiologist as above evidence of PE. A second troponin was ordered and was also negative. The patient's case was discussed with Dr. Winston who agreed with treatment plan. The patient was informed of all findings and discharged home in stable condition Medical Decision Differential diagnosis include acute NC, PE, pneumonia, bronchitis, pleuritic chest pain, costochondritis, Impression Primary Impression: Acute sinusitis Additional Impression: Bronchitis Departure Information Dispostion Home / Self-Care Condition GOOD Prescriptions Cefuroxime Axetil (CEFTIN) 500 Mg Tab 500 MG PO BID for 10 Days, #20 TAB Prov: Veronica Gabriel PA-C 08/06/16 Referrals Kalen Gonzalez D.O. (PCP) Forms HOME CARE DOCUMENTATION FORM, IMPORTANT VISIT INFORMATION Patient Instructions ED Sinusitis Abx Tx, My [facility] Additional Instructions Take Ceftin as prescribed. Use your nebulizer or inhaler 2-3 times a day. Take Mucinex as directed on the label for 5 days. They sure you take in deep inspirations periodically throughout the day. Follow-up with your family doctor in 2-3 days for recheck. If you experience any severe chest pain, shortness breath, diaphoresis return to ER immediately. Problem Qualifiers Primary Impression: Acute sinusitis Sinusitis location: maxillary Recurrence: not specified as recurrent Qualified Codes: J01.00 - Acute maxillary sinusitis, unspecified
== END 2016-08-06 22:54 | disposition home or self-care (01) ==
LOC: C.EDB 18:56 → C.EDA 22:54
DX: J01.00 Acute maxillary sinusitis, unspecified (principal); J40 Bronchitis, not specified as acute or chronic; Z85.3 Personal history of malignant neoplasm of breast; J44.9 Chronic obstructive pulmonary disease, unspecified; E11.9 Type 2 diabetes mellitus without complications; I10 Essential (primary) hypertension; E03.9 Hypothyroidism, unspecified; K58.9 Irritable bowel syndrome, unspecified; I89.0 Lymphedema, not elsewhere classified; Z86.011 Personal history of benign neoplasm of the brain; Z86.018 Personal history of other benign neoplasm; Z83.3 Family history of diabetes mellitus; Z83.79 Family history of other diseases of the digestive system; Z80.9 Family history of malignant neoplasm, unspecified; Z87.891 Personal history of nicotine dependence; Z79.82 Long term (current) use of aspirin; Z79.4 Long term (current) use of insulin; Z79.899 Other long term (current) drug therapy

== ENCOUNTER 2016-08-09 11:00 | Emergency (ER) | payer OTHER ==
[~2016-08-09] VITALS: Ht 170.2 cm; Wt 115.3 kg
[~2016-08-09 11:00] MED LIST changes: +CEFU500T16 PO
[2016-08-09 11:04] VITALS: TEMP 36.2; Ht 170.2 cm; Wt 115.3 kg
[2016-08-09] MEDS ORDERED: ALBUT/IPRATROP 3MG/0.5MG NEB 3 ML VIAL INH STA (11:51)
--- NOTE | 2016-08-09 12:10 | DIAGNOSTIC IMAGING REPORT ---
CHEST ONE VIEW PORTABLE CLINICAL HISTORY: CHEST PAIN pain COMPARISON STUDY: 08/06/2016 FINDINGS: The bones soft tissues and hemidiaphragms are normal. The cardiomediastinal silhouette is normal. The lungs are clear. The pulmonary vasculature is normal. IMPRESSION: Negative chest. Electronically signed by: Power Gabriel M.D. 08/09/2016 12:09 PM Dictated Date/Time: 08/09/2016 12:09 PM
[2016-08-09 12:13] LABS: BASO % 0.3 %; BASO ABS # 0.03 K/uL (0-0.2); COMPLETE YES; EOS % 0.7 %; HEMATOCRIT 36.5 % (37-47); IG% 0.6 %; LYMPH % 11.5 %; LYMPH ABS # 1.04 K/uL (1.2-3.4); MEAN CELL VOLUME 84.3 fL (80-100); MEAN CORPUSCULAR HEMOGLOBIN 28.9 pg (25-34); MEAN CORPUSCULAR HGB CONC 34.2 g/dl (32-36); MEAN PLATELET VOLUME 11.1 fL (7.4-10.4); MONO % 1.9 %; PLATELET COUNT 240 K/uL (130-400); RED BLOOD COUNT 4.33 M/uL (4.2-5.4); WHITE BLOOD COUNT 9.01 K/uL (4.8-10.8)
[2016-08-09 12:15] LABS: PROTHROMBIN TIME (PATIENT) 10.2 SECONDS (9.0-12.0)
[2016-08-09] MEDS ORDERED: DEXT1TAB50 PO (12:21)
[2016-08-09] MEDS ORDERED: OMEG10007 PO (12:22)
[2016-08-09] MEDS ORDERED: VNTHFA/IN INH (12:22)
[2016-08-09 12:42] LABS: ALKALINE PHOSPHATASE 120 U/L (45-117); ALT/SGPT 24 U/L (12-78); AST/SGOT 10 U/L (15-37); BLOOD UREA NITROGEN 19 mg/dl (7-18); BUN/CREATININE RATIO 18.7 (10-20); CALCIUM 8.8 mg/dl (8.5-10.1); CARBON DIOXIDE 22 mmol/L (21-32); CHLORIDE 106 mmol/L (98-107); GLUCOSE 390 mg/dl (70-99); POTASSIUM 4.1 mmol/L (3.5-5.1); SODIUM 139 mmol/L (136-145)
[2016-08-09 12:56] LABS: BETA-HYDROXYBUTYRATE 1.17 mg/dL (0.2-2.81)
[2016-08-09 13:26] VITALS: O2SAT 91
[2016-08-09 13:30] VITALS: BP 144/78
[2016-08-09 13:36] VITALS: PULSE 78
--- NOTE | 2016-08-12 23:17 | EMERGENCY ROOM VISIT NOTE ---
History First contact with patient: 11:39 Chief Complaint: CARDIAC ASSESSMENT Stated Complaint: POST SURGERY COMP, CHEST PRESSURE, COUGHING BLOOD Nursing Triage Summary: Pt. had laproscopic cholecystectomy on 07/30/16. SHe states she has not felt well since then, having visited the ER this past Saturday. "A person told me they OD'd me after surgery, and they had to reinsert the nasal tube twice." She feels that what she is experiencing now is a result of the complication post op. She has been coughing and bringing up clear sputum, last night it was blood tinged. She has nasal congestion as well. She states a decreased appetitie, she feels that her throat is swollen. She has SOB, with short sentences. She denies CP, just trouble getting a full breath. History of Present Illness The patient is a 66 year old female who presents to the Emergency Room with complaints of nasal congestion and shortness of breath. She did have her gallbladder laparoscopically removed on July 30. She said she had difficult postop course and in recovery did but they did have to put the tube back into her nose. She said her left side of her head is feeling is full of fluid since then and she's had a sore throat. She has some pain in the roof of her mouth. She's had some coughing. This has been clear except for she had a little blood-tinged sputum today so that's why she came here. She is using steroids and antibiotic ,she's been blown her nose a lot. She was seen here a couple days ago had a negative chest CT of the negative workup. She denies any fever or chills. No chest pain at present. No pain or swelling in her legs acutely. Review of Systems As above. All other systems reviewed were negative unless otherwise stated in history. At least 10 were reviewed Past Medical/Surgical History Medical Problems: (1) Asthma (2) Benign neoplasm of colon (3) Benign neoplasm of pituitary gland (4) Breast cancer (5) COPD, moderate (6) DM type 2 (diabetes mellitus, type 2) (7) HTN (hypertension) (8) Hypothyroidism (9) IBS (irritable bowel syndrome) (10) Lymphedema Surgical Problems: (1) H/O bladder repair surgery (2) H/O breast reconstruction (3) H/O colonoscopy (4) H/O cystoscopy (5) History of dental surgery (6) History of salpingo-oophorectomy (7) S/P dilation and curettage (8) S/P laparoscopic cholecystectomy (9) S/P laparoscopy (10) S/P mastectomy (11) S/P nasal surgery (12) S/P tubal ligation Old medical records were reviewed. Nurse's notes were reviewed and I agree with. Family History Asthma Diabetes mellitus FH: Crohn's disease MOTHER AUNT FH: cancer GRANDFATHER (colon CA) GRANDMOTHER (uterine CA) No Family History of: Kidney disease Social History Smoking Status: Former Smoker Drug Use: none Marital Status: Occupation Status: retired Current/Historical Medications Scheduled Anastrozole (Arimidex), 1 MG PO QAM Aspirin (Aspirin Ec), 81 MG PO QAM Cefuroxime Axetil (Ceftin), 500 MG PO BID Diltiazem Hcl Ext Rel (Tiazac), 120 MG PO QAM Fish Oil ([place]-3), 1 CAP PO QAM Fluticasone Prop/Salmeterol (Advair Diskus 250/50 60 Dose), 1 PUFF INH QAM Furosemide (Furosemide), 20 MG PO QAM Insulin Aspart (Novolog Flexpen), 1 DOSE SC UD Insulin Degludec (Tresiba Flextouch), 150 UNITS SC DAILY Levothyroxine Sodium (Levothyroxine Sodium), 100 MCG PO QAM Lisinopril (Lisinopril), 10 MG PO QAM Metoprolol Tartrate (Lopressor) (Lopressor), 12.5 MG PO BID Potassium (Potassium), 99 MG PO QAM Topiramate (Topamax ), 50 MG PO QAM Vitamin E (E-400-Clear), 1 CAP PO QAM Scheduled PRN Albuterol Hfa (Ventolin Hfa), 2 PUFFS INH Q4H PRN for SOB/Wheezing Azithromycin (Zithromax), 250 MG PO UD PRN for Rescue Kit Dextromethorphan-Guaifenesin (Mucinex Dm Maximum Streng), 1 TAB PO BID PRN for Cough Ipratropium-Albuterol (Duoneb), 1 TREATMENT INH Q4H PRN for Cough or Wheezing Prednisone (Prednisone), 40 MG PO UD PRN for Rescue Kit Allergies Coded Allergies: Quinolones (Verified Allergy, Intermediate, CIPRO-HIVES, 08/09/16) Latex1 -Allergic Contact Dermititis (Unverified Allergy, Mild, rash, and blisters, 08/09/16) Codeine (Verified Allergy, Unknown, hallucinations, 08/09/16) Metformin (Unverified Allergy, Unknown, gi upset , 08/09/16) Sitagliptin (Verified Allergy, Unknown, GI SYMPTOMS, 08/09/16) Adhesives (Unverified Adverse Reaction, Unknown, rash, 08/09/16) Physical Exam Vital Signs Date Time Temp Pulse Resp B/P Pulse Ox O2 Delivery O2 Flow Rate FiO2 08/09/16 13:36 78 20 08/09/16 13:31 77 17 08/09/16 13:30 144/78 08/09/16 13:26 77 12 91 08/09/16 13:21 80 19 93 08/09/16 13:16 75 91 08/09/16 13:11 76 11 93 08/09/16 13:06 74 18 91 08/09/16 13:01 78 14 94 08/09/16 13:00 144/66 08/09/16 12:56 77 19 91 08/09/16 12:51 86 12 91 08/09/16 12:46 75 91 08/09/16 12:41 77 14 93 08/09/16 12:36 82 20 89 08/09/16 12:31 80 20 91 08/09/16 12:30 139/59 08/09/16 12:26 80 23 91 08/09/16 12:21 83 25 91 08/09/16 12:16 83 93 08/09/16 12:11 79 13 97 08/09/16 12:06 80 18 98 08/09/16 12:01 83 16 98 08/09/16 12:00 134/72 08/09/16 11:59 86 08/09/16 11:56 84 20 92 08/09/16 11:51 149/63 08/09/16 11:50 83 24 93 08/09/16 11:45 83 23 93 08/09/16 11:30 189/161 08/09/16 11:04 36.2 90 18 158/73 94 Room Air Pain Rating (0-10): 0 Physical Exam General: Well developed well nourished appearing older female who appears in no acute distress, breathing comfortably on room air. Normal speech HEENT: Normal cephalic atraumatic. Pupils are equal round and reactive to light. Extraocular movements are intact. Oropharynx is pink with moist mucous membranes. No swelling of the mouth lips or tongue. He does have some nasal congestion some mild tenderness of the sinuses mostly on the left Neck: Supple with a midline trachea. No meningeal signs or stiffness, no JVD or bruits. No Stridor. Chest: Clear to auscultation bilaterally. No wheezes or rhonchi. No increased work of breathing. Heart: Regular rate and rhythm without murmurs or gallops. Abdomen: Soft nontender, nondistended without rebound guarding or rigidity. Extremities: No cyanosis clubbing or edema. No calf tenderness or assymetry Spine/Back. Non tender to palpation. No CVA tenderness Skin: Good turgor without rashes. Neurologic exam: Cranial nerves two through 12 are intact. Motor and sensation are intact and symmetrical throughout. Medical Decision & Procedures ER Provider Diagnostic Interpretation: Chest x-ray: No acute infiltrate, failure, pneumothorax seen Note: I have personally interpreted the x-ray and clinical decision-making is based upon my interpretation Laboratory Results 08/09/16 11:35 Red Blood Count 4.33, Mean Corpuscular Volume 84.3, Mean Corpuscular Hemoglobin 28.9, Mean Corpuscular Hemoglobin Concent 34.2, Mean Platelet Volume 11.1, Neutrophils (%) (Auto) 85.0, Lymphocytes (%) (Auto) 11.5, Monocytes (%) (Auto) 1.9, Eosinophils (%) (Auto) 0.7, Basophils (%) (Auto) 0.3, Neutrophils # (Auto) 7.66, Lymphocytes # (Auto) 1.04, Monocytes # (Auto) 0.17, Eosinophils # (Auto) 0.06, Basophils # (Auto) 0.03 08/09/16 11:35 Test 08/09/16 11:35 08/09/16 12:07 White Blood Count 9.01 K/uL (4.8-10.8) Red Blood Count 4.33 M/uL (4.2-5.4) Hemoglobin 12.5 g/dL (12.0-16.0) Hematocrit 36.5 % (37-47) Mean Corpuscular Volume 84.3 fL (80-100) Mean Corpuscular Hemoglobin 28.9 pg (25-34) Mean Corpuscular Hemoglobin Concent 34.2 g/dl (32-36) Platelet Count 240 K/uL (130-400) Mean Platelet Volume 11.1 fL (7.4-10.4) Neutrophils (%) (Auto) 85.0 % Lymphocytes (%) (Auto) 11.5 % Monocytes (%) (Auto) 1.9 % Eosinophils (%) (Auto) 0.7 % Basophils (%) (Auto) 0.3 % Neutrophils # (Auto) 7.66 K/uL (1.4-6.5) Lymphocytes # (Auto) 1.04 K/uL (1.2-3.4) Monocytes # (Auto) 0.17 K/uL (0.11-0.59) Eosinophils # (Auto) 0.06 K/uL (0-0.5) Basophils # (Auto) 0.03 K/uL (0-0.2) RDW Standard Deviation 42.9 fL (36.4-46.3) RDW Coefficient of Variation 14.0 % (11.5-14.5) Immature Granulocyte % (Auto) 0.6 % Immature Granulocyte # (Auto) 0.05 K/uL (0.00-0.02) Prothrombin Time 10.2 SECONDS (9.0-12.0) Prothromb Time International Ratio 1.0 (0.9-1.1) Activated Partial Thromboplast Time 25.0 SECONDS (21.0-31.0) Partial Thromboplastin Ratio 1.0 Anion Gap 11.0 mmol/L (3-11) Est Creatinine Clear Calc Drug Dose 74.5 ml/min Estimated GFR () 69.0 Estimated GFR (Non- 59.5 BUN/Creatinine Ratio 18.7 (10-20) Calcium Level 8.8 mg/dl (8.5-10.1) Total Bilirubin 0.3 mg/dl (0.2-1) Direct Bilirubin < 0.1 mg/dl (0-0.2) Aspartate Amino Transf (AST/SGOT) 10 U/L (15-37) Alanine Aminotransferase (ALT/SGPT) 24 U/L (12-78) Alkaline Phosphatase 120 U/L (45-117) Total Protein 7.4 gm/dl (6.4-8.2) Albumin 3.3 gm/dl (3.4-5.0) Lipase 201 U/L (73-393) Beta-Hydroxybutyric Acid 1.17 mg/dL (0.2-2.81) Bedside Troponin I 0.000 ng/ml (0-0.045) Medications Administered Medications (Trade) Dose Ordered Sig/Uriel Route Start Time Stop Time Status Last Admin Dose Admin Albuterol/ Ipratropium (Duoneb) 3 ml NOW STAT INH 08/09/16 11:51 08/09/16 11:53 DC 08/09/16 11:58 3 ML ECG Indication: SOB/dyspnea Rate (beats per minute): 80 Rhythm: normal sinus Findings: no acute ischemic change, no ectopy Change: no significant change Medical Decision Differential diagnosis includes: Postop congestion, sinusitis, infection, bronchitis, PE, cardiac disease, electrolyte or metabolic abnormalities. This patient comes in as described above. She was placed on a property assessment monitor and room C 12. She is having some nasal congestion and coughed up a little bit of blood-tinged sputum. She had her nose instrumented recently during surgery. She has no nosebleed. She had excessive workup done about 2 days ago included negative chest CT. EKG does not suggest acute cardiac event nor do her markers or her symptoms. Chest x-ray does not show any acute findings. Her blood sugar was elevated at 390.. She's not taken her meds today she does not appear to be DKA. I think this is related to nasal congestion from the surgery. She's to continue antibiotics and steroids and inhalers. Return if: Worsening of symptoms, shortness of breath, chest pain, fever or chills, any new problems or concerns. She was happy with the plan and was discharged to home she should follow up with her doctor this week for recheck. Impression Primary Impression: Shortness of breath Additional Impression: Nasal congestion Departure Information Dispostion Home / Self-Care Condition GOOD Referrals Kalen Gonzalez D.O. (PCP) Forms IMPORTANT VISIT INFORMATION Patient Instructions My [facility] Additional Instructions Rest. Drink plenty of fluids. Use humidified air. Use Sudafed if needed for decongestant. Continue antibiotics and steroids and inhalers. Return if: Worsening of symptoms, fever or chills, chest pain, any new problems or concerns. Check your blood sugar frequently Problem Qualifiers
== END 2016-08-09 14:12 | disposition home or self-care (01) ==
LOC: C.EDB 11:03 → C.EDC 14:12
DX: R06.02 Shortness of breath (principal); R09.81 Nasal congestion; J45.909 Unspecified asthma, uncomplicated; Z85.3 Personal history of malignant neoplasm of breast; J44.9 Chronic obstructive pulmonary disease, unspecified; E11.9 Type 2 diabetes mellitus without complications; I10 Essential (primary) hypertension; E03.9 Hypothyroidism, unspecified; Z83.3 Family history of diabetes mellitus; Z82.5 Family history of asthma and other chronic lower respiratory diseases; Z87.891 Personal history of nicotine dependence; Z79.82 Long term (current) use of aspirin; Z79.4 Long term (current) use of insulin

== ENCOUNTER → 2017-05-01 | Outpatient (CLI) | payer OTHER ==
[~2017-05-01] MED LIST changes: -ALBU1AER9 INH; +ASPITAB71 PO; -CEFU500T16 PO; +CHOL20007 PO; +DEXT1TAB50 PO; +DULA1INJ INJ; -FISHOIL PO; +GABA-112 PO; +OMEG10007 PO; +SALI1SPR15 NAE; +VNTHFA/IN INH; -[UNRECOGNIZED DRUG - CODE]
[2017-05-01 11:02] LABS: ESTIMATED AVERAGE GLUCOSE 154 mg/dl; HA1C FLAG Normal (Normal)
[2017-05-01 11:08] LABS: CREATININE RANDOM URINE 70.1 mg/dl
[2017-05-01 11:19] LABS: RATIO 9.1 mcg/mg (0-30.0)
[2017-05-01 11:24] LABS: CHOLESTEROL/HDL RATIO 4.7
== END | disposition home or self-care (01) ==
LOC: C.LAB 08:46
PROVIDERS: ATTEND Internal Medicine Endocrinology, Diabetes & Metabolism
DX: E11.9 Type 2 diabetes mellitus without complications (principal); E66.9 Obesity, unspecified

== ENCOUNTER → 2017-05-10 | Day surgery (SDC) | payer OTHER ==
[2017-05-01 09:12] VITALS: Ht 170.2 cm; Wt 118.5 kg
--- NOTE | 2017-05-01 09:47 | PAT Medication Instructions ---
Service Date May 01, 2017. Current Home Medication List Albuterol Hfa (Ventolin Hfa), 2 PUFFS INH Q4H PRN for SOB/Wheezing Anastrozole (Arimidex), 1 MG PO QAM Aspirin (Aspirin Ec), 81 MG PO QAM Aspirin Effervescent ([place]), 1 TAB PO PRN Azithromycin (Zithromax), 250 MG PO UD PRN for Rescue Kit Cholecalciferol (Vitamin D3), 1 TAB PO Q2D Diltiazem Hcl Ext Rel (Tiazac), 120 MG PO QAM Dulaglutide (Trulicity), 1 DOSE INJ WEEKLY Fish Oil ([place]-3), 1 CAP PO QAM Furosemide (Furosemide), 20 MG PO QAM Gabapentin (Neurontin), 100 MG PO QAM Insulin Aspart (Novolog Flexpen), 1 DOSE SC UD Insulin Degludec (Tresiba Flextouch), 160 UNITS SC QAM Ipratropium-Albuterol (Duoneb), 1 TREATMENT INH Q4H PRN for Cough or Wheezing Levothyroxine Sodium (Levothyroxine Sodium), 100 MCG PO QAM Lisinopril (Lisinopril), 10 MG PO QAM Metoprolol Tartrate (Lopressor) (Lopressor), 12.5 MG PO BID Potassium (Potassium), 99 MG PO QAM Prednisone (Prednisone), 40 MG PO UD PRN for Rescue Kit Saline (Saline Nasal [place] Infant), 1 [place] QID PRN for PRN Topiramate (Topamax ), 50 MG PO QAM Vitamin E (E-400-Clear), 1 CAP PO QAM Medication Instructions For Your Scheduled Surgery - Continue as directed: Dulaglutide (Trulicity), 1 DOSE INJ WEEKLY Prednisone (Prednisone), 40 MG PO UD PRN for Rescue Kit Azithromycin (Zithromax), 250 MG PO UD PRN for Rescue Kit - Held per surgeon's instructions: Aspirin (Aspirin Ec), 81 MG PO QAM Aspirin Effervescent (Na[place]), 1 TAB PO PRN - Hold the following medications as of 05/01/17: Vitamin E (E-400-Clear), 1 CAP PO QAM Fish Oil ([place]-3), 1 CAP PO QAM - Hold the following medications the morning of surgery: Furosemide (Furosemide), 20 MG PO QAM Cholecalciferol (Vitamin D3), 1 TAB PO Q2D Lisinopril (Lisinopril), 10 MG PO QAM Potassium (Potassium), 99 MG PO QAM Insulin Aspart (Novolog Flexpen), 1 DOSE SC UD - Take the following medications the morning of surgery with a sip of water OTHERWISE NOTHING TO EAT OR DRINK AFTER MIDNIGHT: Diltiazem Hcl Ext Rel (Tiazac), 120 MG PO QAM Topiramate (Topamax ), 50 MG PO QAM Albuterol Hfa (Ventolin Hfa), 2 PUFFS INH Q4H PRN for SOB/Wheezing (use if needed; BRING TO HOSPITAL) Saline (Saline Nasal [place] Infant), 1 [place] QID PRN Ipratropium-Albuterol (Duoneb), 1 TREATMENT INH Q4H PRN for Cough or Wheezing Gabapentin (Neurontin), 100 MG PO QAM Anastrozole (Arimidex), 1 MG PO QAM Metoprolol Tartrate (Lopressor) (Lopressor), 12.5 MG PO BID Levothyroxine Sodium (Levothyroxine Sodium), 100 MCG PO QAM - For Insulin Dependent Diabetic patients: Test blood sugar A.M. of surgery. - If Blood Sugar is GREATER THAN 150, take HALF of your regular dose of: Insulin Degludec (Tresiba Flextouch) - If Blood Sugar is LESS THAN 150, do not take any: Insulin Degludec ( Tresiba Flextouch) - Take the following medications as scheduled the night before surgery: Albuterol Hfa (Ventolin Hfa), 2 PUFFS INH Q4H PRN for SOB/Wheezing Saline (Saline Nasal [place] Infant), 1 [place] QID PRN Ipratropium-Albuterol (Duoneb), 1 TREATMENT INH Q4H PRN for Cough or Wheezing Metoprolol Tartrate (Lopressor) (Lopressor), 12.5 MG PO BID Insulin Aspart (Novolog Flexpen), 1 DOSE SC UD If you have any questions please call us at [phone] or [phone] or [phone]
[2017-05-01 10:57] LABS: BASO % 0.4 %; BASO ABS # 0.03 K/uL (0-0.2); EOS % 2.4 %; EOS ABS # 0.19 K/uL (0-0.5); HEMATOCRIT 39.6 % (37-47); HEMOGLOBIN 12.7 g/dL (12.0-16.0); IG# 0.01 K/uL (0.00-0.02); LYMPH % 22.6 %; LYMPH ABS # 1.82 K/uL (1.2-3.4); MEAN CELL VOLUME 88.4 fL (80-100); MEAN CORPUSCULAR HEMOGLOBIN 28.3 pg (25-34); MEAN CORPUSCULAR HGB CONC 32.1 g/dl (32-36); MEAN PLATELET VOLUME 11.5 fL (7.4-10.4); MONO % 6.7 %; MONO ABS # 0.54 K/uL (0.11-0.59); NEUT % 67.8 %; NEUT ABS # 5.48 K/uL (1.4-6.5); PLATELET COUNT 238 K/uL (130-400); RED CELL DISTRIBUTION WIDTH SD 45.3 fL (36.4-46.3); WHITE BLOOD COUNT 8.07 K/uL (4.8-10.8)
[2017-05-01 11:19] LABS: CALCIUM 9.4 mg/dl (8.5-10.1); CREATININE 0.82 mg/dl (0.60-1.20)
[~2017-05-10] VITALS: Ht 170.2 cm; Wt 118.5 kg
[~2017-05-10] MED LIST changes: -ADVIN25/60 INH; -DEXT1TAB50 PO
== END | disposition home or self-care (01) ==
LOC: EDSTATUS 08:00 → C.PAT 13:15
DX: Z01.812 Encounter for preprocedural laboratory examination (principal); J34.2 Deviated nasal septum; J34.3 Hypertrophy of nasal turbinates; E11.9 Type 2 diabetes mellitus without complications; E03.9 Hypothyroidism, unspecified; M48.061 Spinal stenosis, lumbar region without neurogenic claudication; F17.210 Nicotine dependence, cigarettes, uncomplicated; Z79.4 Long term (current) use of insulin; Z90.49 Acquired absence of other specified parts of digestive tract; Z90.10 Acquired absence of unspecified breast and nipple; Z80.8 Family history of malignant neoplasm of other organs or systems

== ENCOUNTER → 2017-08-27 | Outpatient (CLI) | payer OTHER ==
[~2017-08-27] MED LIST changes: +OPTIRAY 320 IV PRN
--- NOTE | 2017-08-27 08:23 | DIAGNOSTIC IMAGING REPORT ---
CT OF THE CHEST WITH IV CONTRAST CLINICAL HISTORY: Malignant neoplasm of right breast. Dyspnea on exertion. Supraclavicular fossa fullness. COMPARISON STUDY: Chest CT August 06, 2016. TECHNIQUE: Following IV administration of 91 mL of Optiray-320, helical axial images of the chest were obtained. Sagittal and coronal reconstructions were viewed as well as maximal intensity projections on an independent 3-D workstation. A dose lowering technique was utilized adhering to the principles of ALARA. FINDINGS: Mildly enlarged mediastinal and right hilar lymph nodes are similar to chest CT of August 06, 2016. These are likely benign. The size of the heart is normal. There is no pericardial effusion. Bilateral breast implants have been removed since exam of August 06, 2016. These patient is status post bilateral mastectomy. No enlarged axillary lymph nodes are present. No supraclavicular lymphadenopathy is noted. There are no suspicious pulmonary nodules. No suspicious osseous lesions are present. There is no consolidation. Lingular atelectasis is noted. The abdomen and pelvis will be reported separately. IMPRESSION: 1. No evidence of metastatic disease within the chest. 2. Stable mild mediastinal and right hilar lymphadenopathy since CT of August 06, 2016. These nodes are likely benign. 3. Interval removal of the bilateral breast implants. Status post bilateral mastectomy. No axillary or supraclavicular lymphadenopathy. Electronically signed by: Nadeem Patton M.D. 08/27/2017 8:22 AM Dictated Date/Time: 08/27/2017 8:12 AM
--- NOTE | 2017-08-27 08:24 | DIAGNOSTIC IMAGING REPORT ---
ABD/PELVIS IV AND ORAL CONT CLINICAL HISTORY: 67 years-old Female presenting with MALIG NEOPLASM R BREAST. TECHNIQUE: Multidetector CT of the abdomen and pelvis was performed after the administration of oral and intravenous contrast. IV contrast: 91 mL of Optiray 320. A dose lowering technique was used consistent with the principles of ALARA (as low as reasonably achievable). COMPARISON: CTA from 05/04/2016. CT DOSE (mGy.cm): The estimated cumulative dose is 1903.26 mGy.cm. FINDINGS: Dispensing Optician Apprentice topogram: Cholecystectomy clips. Lung bases: Minimal basilar opacities, likely atelectasis. Normal heart size. No pericardial or pleural effusion. Liver: Normal morphology. Suggestion of hepatic steatosis. Perfusional variation along the fissure for the ligamentum teres. No focal lesion. Patent hepatic vasculature. Biliary: No intrahepatic or extrahepatic biliary ductal dilatation. Gallbladder surgically absent. Pancreas: Mild parenchymal atrophy. Spleen: Normal. Adrenal glands: Normal. Kidneys and ureters: Several hypodensities noted throughout the kidneys, some too small to characterize but likely cysts. No hydronephrosis. Punctate nonobstructing calculus at the upper pole the right kidney. No left renal calculus. Ureters normal. Bladder: Extension of the bladder lumen towards the right pelvic sidewall suggests ligamentous laxity. Bladder otherwise normal. Pelvic organs: Uterus and right ovary normal. Left ovary not visualized. Bowel: Diverticulosis of the sigmoid and descending colon are no pericolonic fat stranding. Few scattered colonic diverticula noted elsewhere. The appendix is normal. No bowel obstruction. Peritoneal cavity: No free fluid or intraperitoneal gas. Lymph nodes: Decreased size of the previously noted prominent left common iliac lymph node. No pathologically enlarged lymph nodes by CT size criteria. Vasculature: Atherosclerosis of the normal caliber abdominal aorta. IVC patent. Abdominal wall: Minimal infiltration of the anterior left abdominal wall, possibly related to medication administration. Similar but less pronounced changes on the right. Nonspecific subcutaneous edema in the lumbar region. Musculoskeletal: Degenerative changes of the spine. No destructive osseous lesion. IMPRESSION: 1. No evidence of metastatic disease in abdomen or pelvis. No acute intra-abdominal pathology. 2. Nonobstructing punctate right renal calculus. 3. Diverticulosis. 4. Possible hepatic steatosis. Electronically signed by: Willie Madera M.D. 08/27/2017 8:23 AM Dictated Date/Time: 08/27/2017 8:14 AM
== END | disposition home or self-care (01) ==
LOC: C.CTS 07:47
PROVIDERS: ATTEND Physician Assistant
DX: C50.911 Malignant neoplasm of unspecified site of right female breast (principal); Z17.0 Estrogen receptor positive status [ER+]; R06.09 Other forms of dyspnea; R22.2 Localized swelling, mass and lump, trunk; N20.0 Calculus of kidney; K57.90 Diverticulosis of intestine, part unspecified, without perforation or abscess without bleeding

== ENCOUNTER → 2017-08-29 | Outpatient (CLI) | payer OTHER ==
[~2017-08-29] MED LIST changes: -OPTIRAY 320 IV PRN
[2017-08-29 13:13] LABS: BASO % 0.2 %; BASO ABS # 0.02 K/uL (0-0.2); EOS % 2.1 %; EOS ABS # 0.17 K/uL (0-0.5); HEMATOCRIT 40.6 % (37-47); HEMOGLOBIN 13.7 g/dL (12.0-16.0); IG# 0.02 K/uL (0.00-0.02); LYMPH % 22.4 %; LYMPH ABS # 1.83 K/uL (1.2-3.4); MEAN CELL VOLUME 86.8 fL (80-100); MEAN CORPUSCULAR HEMOGLOBIN 29.3 pg (25-34); MEAN CORPUSCULAR HGB CONC 33.7 g/dl (32-36); MEAN PLATELET VOLUME 11.1 fL (7.4-10.4); MONO % 6.7 %; MONO ABS # 0.55 K/uL (0.11-0.59); NEUT % 68.4 %; NEUT ABS # 5.59 K/uL (1.4-6.5); PLATELET COUNT 229 K/uL (130-400); RED CELL DISTRIBUTION WIDTH SD 44.1 fL (36.4-46.3); WHITE BLOOD COUNT 8.18 K/uL (4.8-10.8)
== END | disposition home or self-care (01) ==
LOC: C.LABBC 11:11
PROVIDERS: ATTEND Optometrist
DX: G45.3 Amaurosis fugax (principal)

== ENCOUNTER 2019-08-07 09:29 | Observation (INO) ==
--- NOTE | 2019-08-07 09:54 | XRay Report ---
XR chest 1V portable CLINICAL HISTORY: 69 years-old Female presenting with Chest Pain. TECHNIQUE: Portable upright AP view of the chest was obtained. COMPARISON: Chest CT from 08/27/2017 and chest x-ray from 08/09/2016. FINDINGS: Atherosclerosis of the aortic arch. Cardiac silhouette borderline enlarged. Minimal basilar opacities . No pleural effusion or pneumothorax. Mild degenerative changes of the thoracic spine. Surgical clip s noted in the right axilla. Upper abdomen normal. IMPRESSION: 1. Minimal bibasilar opacities likely atelectasis or scarring. These are largely chronic. No convinc ing evidence of acute cardiopulmonary disease. ACT 112: Negative or not required by law. Results electronically sent 08/07/2019 9:53 AM to: Melchor Kwan DO Electronically signed by: Willie Madera M.D. 08/07/2019 9:53 AM
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
[2019-08-07 10:34] LABS: Basophils # (auto) 0.01 K/uL (0-0.2); Basophils % (auto) 0.1 %; Eosinophils # (auto) 0.17 K/uL (0-0.5); Eosinophils % (auto) 2.2 %; Hematocrit (blood only) 39.9 % (37-47); Hemoglobin 12.9 g/dL (12.0-16.0); Immature Granulocytes # (auto) 0.01 K/uL (0.00-0.02); Immature Granulocytes % (auto) 0.1 %; Lymphocytes # (auto) 1.81 K/uL (1.2-3.4); Lymphocytes % (auto) 22.9 %; Mean Corpuscular Hemoglobin 28.9 pg (25-34); Mean Corpuscular Hgb Conc 32.3 g/dL (32-36); Mean Corpuscular Volume 89.3 fL (80-100); Mean Platelet Volume 11.6 fL (7.4-10.4); Monocytes # (auto) 0.58 K/uL (0.11-0.59); Monocytes % (auto) 7.4 %; Neutrophils # (auto) 5.31 K/uL (1.4-6.5); Neutrophils % (auto) 67.3 %; Platelet Count 228 K/uL (130-400); RDW Coefficient of Variation 14.3 % (11.5-14.5); RDW Standard Deviation 46.9 fL (36.4-46.3); Red Blood Count 4.47 M/uL (4.2-5.4); White Blood Count 7.89 K/uL (4.8-10.8)
[2019-08-07 10:51] LABS: Alanine Aminotransferase 38 U/L (12-78); Albumin Level 3.5 gm/dl (3.4-5.0); Aspartate Aminotransferase 20 U/L (15-37); BUN Creatinine Ratio 11.5 (10-20); Blood Urea Nitrogen 10 mg/dl (7-18); Calcium 9.1 mg/dl (8.5-10.1); Carbon Dioxide 26 mmol/L (21-32); Chloride 112 mmol/L (98-107); Creatinine Clr Calc Pharmacy 83.7 ml/min; Est GFR (African American) 76.7; Est GFR (Non-African American) 66.2; Glucose 81 mg/dl (70-99); Lipase 145 U/L (73-393); Potassium 3.9 mmol/L (3.5-5.1); Sodium 142 mmol/L (136-145)
[2019-08-07 10:56] LABS: Albumin Globulin Ratio 0.9 (0.9-2); Alkaline Phosphatase 106 U/L (45-117); Bilirubin,Total 0.4 mg/dl (0.2-1); Globulin 3.8 gm/dl (2.5-4.0); NT Pro B Type Natriuretic Pept 675 pg/ml (0-900); Total Protein 7.3 gm/dl (6.4-8.2); Troponin I < 0.015 ng/ml (0-0.045)
[2019-08-07 12:01] LABS: Partial Thromboplastin Time 27.6 Seconds (21.0-31.0); Prothrombin Time 10.5 Seconds (9.0-12.0)
--- NOTE | 2019-08-07 13:26 | History & Physical Report ---
Date of Service August 07, 2019 Assessment & Plan (1) HTN (hypertension): This is a 69-year-old female who has significant PMH of insulin-dependent T2DM, HTN, HLD, COPD, history of PSVT, pituitary macroadenoma status post resection, hypothyroidism, history of breast cancer status post bilateral mastectomy, bilateral lymphedema, history of tobacco abuse, left lower extremity wound who presents to ED at the recommendation of wound clinic secondary to hypertension and bradycardia. SBP in ED initially 198/69, now 161/63 without antihypertensive HR in 30s-40s, asymptomatic bigeminy Admit to PCU consult cardiology, appreciate their input with med management hold metoprolol and diltiazem for now monitor on tele Last TSH 07/06 0.81, repeat hydralazine 10mgIV PRN SBP > 180 TIA/stroke At around 3:50 PM she complained numbness involving the right side face and right upper extremity and that happened while she was standing and felt dizzy. Did not have any other new symptoms and her blood pressure was not high at that time.she was taken to the ICU and stroke alert was called . She was evaluated by tele neurologist from [facility] and it was decided that she is not a candidate for TPA and by the time her numbness was improving and she did not have any other focal neuro deficit and her CT of the head remained unremarkable. She was advised to have Plavix on top of aspirin and an MRI rule out possibility of stroke. (2) Bradycardia: Pt with bigemy on rhythm strip and EKG with vent rate of 30s hold metoprolol and diltiazem for now Currently asymptomatic Consult cardiology -appreciate their input (3) Type 2 diabetes mellitus, with long-term current use of insulin: last A1C 6.2 07/2019 continue tresiba, trulicity, novolog consult glycemic pharmacist due to high doses of insulin pt requesting to continue tresiba monitor (4) Dyslipidemia: continue statin (5) Lymphedema: pt with b/l lymphedema continue lasix daily LLE wound - wound consult placed (6) Venous stasis ulcer: pt follows Dr. Patino and wound clinic current tx is Cutimed Sorbact swab and plain Aquacel with 2 layer Coban wrap and this will be changed twice a week continue wound care (7) Hypothyroidism: Continue levothyroxine (8) COPD (chronic obstructive pulmonary disease): no active exacerbation prn albuterol (9) DVT prophylaxis: SQ Heparin Disposition: admit to PCU Follow up: PCP Dr. Gonzalez upon discharge Pt was seen and examined in collaboration with Dr. Kaye, please see addendum History of Present Illness Chief Complaint: Referred by wound clinic 2/2 to HTN and bradycardia. Primary Care Provider: Kalen Gonzalez, This is a 69-year-old female who has significant PMH of insulin-dependent T2DM, HTN, HLD, COPD, history of PSVT, pituitary macroadenoma status post resection, hypothyroidism, history of breast cancer status post bilateral mastectomy, bilateral lymphedema, history of tobacco abuse, left lower extremity wound who presents to ED at the recommendation of wound clinic secondary to hypertension and bradycardia. She follows with wound care secondary to a left lower extremity wound. She states a history of staph infection. She elicits over the past 2 months she has noticed approximately 20 pound weight gain mostly in abdominal girth. She also elicits increased shortness of breath with minimal exertion. She does note whenever her blood pressure get significantly high she does get a frontal headache with associated left, "white spots," in vision. She denies any associated lightheadedness, dizziness, syncope, chest pain, palpit ations, nausea, vomiting, abdominal pain. She does have bilateral lower extremity swelling which is normal for her. She has not been taking her Lasix 20 mg daily due to fear of having to urinate. Her last BM was this morning, normal for her. Denies any recent fever, chills, sweats. When she was able in clinic her blood pressure systolically was in the 190s and her heart rates were in the 30s. She has been taking the Toprol and diltiazem for her hypertension as well as history of PSVT. Overall her appetite has been normal. She is an insulin-dependent diabetic 160 units of Tresiba, NovoLog and Trulicity. States her last A1c less than 7. In ED upon arrival her BP was 198/69. Upon my evaluation it was 161/63. She remained hemodynamically stable. On monitor her heart rate is in the 70s however after EKG visualization she is experiencing bigeminy with RR interval ventricular rate of 37bpm. She is currently asymptomatic. In ED lab work revealed relatively unremarkable CBC, CMP, troponin WNL, proBNP 675. Chest x-ray negative for acute cardiopulmonary abnormality. She was recommended for inpatient observation secondary to bradycardia and hypertension. Allergies Allergy/AdvReac Type Severity Reaction Status Date / Time fentanyl Allergy Severe Anaphylaxis Verified 08/07/19 10:30 Quinolones Allergy Intermediate CIPRO-HIVES Verified 08/07/19 10:30 latex Allergy Mild rash, and Verified 08/07/19 10:30 blisters black pepper Allergy Unknown Verified 08/07/19 15:10 adhesive AdvReac Unknown rash Verified 08/07/19 10:30 codeine AdvReac Unknown hallucinati Verified 08/07/19 10:30 ons metformin AdvReac Unknown gi upset Verified 08/07/19 15:10 sitagliptin AdvReac Unknown GI SYMPTOMS Verified 08/07/19 10:30 Home Medications Home Medications Medication Instructions Recorded Confirmed Type albuterol sulfate 90 mcg/actuation 2 puffs INH Q4H PRN gm 07/29/18 08/07/19 History aerosol inhaler aspirin 81 mg tablet,delayed 81 mg PO QAM 07/29/18 08/07/19 History release diltiazem HCl 120 mg capsule,24 120 mg PO QAM 07/29/18 08/07/19 History hr,extended release dulaglutide 0.75 mg/0.5 mL 1 dose SQ KAPLAN ml 07/29/18 08/07/19 History subcutaneous pen injector furosemide 20 mg tablet 20 mg PO QAM 07/29/18 08/07/19 History ipratropium 0.5 mg-albuterol 3 mg 3 ml INH Q4H PRN ml 07/29/18 08/07/19 History (2.5 mg base)/3 mL nebulization soln levothyroxine 100 mcg capsule 100 mcg PO QAM 07/29/18 08/07/19 History insulin aspart U-100 100 unit/mL 0 units SQ AC ml 03/27/19 08/07/19 History subcutaneous solution insulin degludec 100 unit/mL (3 160 units SQ QAM ml 03/27/19 08/07/19 History mL) subcutaneous pen pravastatin 20 mg tablet 20 mg PO QAM 03/27/19 08/07/19 History topiramate 50 mg tablet 50 mg PO QAM tab 03/27/19 08/07/19 History cholecalciferol (vitamin D3) 4,000 unit PO Q2D 08/07/19 08/07/19 History [Vitamin D3] lisinopril 20 mg PO QAM 08/07/19 08/07/19 History metoprolol succinate 25 mg PO QAM 08/07/19 08/07/19 History naproxen sodium [Aleve] 220 mg PO Q12H PRN 08/07/19 08/07/19 History potassium gluconate 99 mg PO QAM 08/07/19 08/07/19 History vitamin E 400 unit PO QAM 08/07/19 08/07/19 History Past Med/Surg History Medical History Anxiety (Chronic) Arthritis (Chronic) Asthma (Chronic) COPD (chronic obstructive pulmonary disease) (Chronic) Diabetes 1.5, managed as type 2 (Chronic) H/O malignant neoplasm of breast (Resolved) Hyperlipidemia (Chronic) Hypertension (Chronic) Hypothyroidism (Chronic) Irritable bowel disease (Chronic) Lymphedema (Chronic) Partial thickness burn of back Pituitary macroadenoma (Chronic) PSVT (paroxysmal supraventricular tachycardia) (Chronic) Surgical History H/O bilateral mastectomy (Resolved) History of carpal tunnel release S/P cholecystectomy (Resolved) S/P oophorectomy (Resolved) S/P tubal ligation (Resolved) Family History Other Cancer Diabetes Heart disease Hypertension Social History Preferred Language: Nigerien Communication Ability: Effective Visual Impairment: No Limitations Hearing Ability: Normal 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: No Beliefs That Will Affect Care: None marital status: Current Living Situation: Spouse current occupational status: retired Other Information That Helps Us Care for You: No Feels Safe at Home: Yes Safety Concerns: Feels Safe At This Time Smoking Status: Former smoker packs per day: 2 ; Years Smoked: 30 ; Do You Dip or Chew Tobacco: No ; Smoking End Date: 05/18/2016 ; Hx Alcohol Use: No Hx Substance Use: No Review of Systems Review of Systems: All systems reviewed & are unremarkable except as noted in HPI & below Physical Exam Physical Exam: Constitutional: WD/WN, morbidly obese, female, sitting up at bedside, vitals as above, NAD, pleasant, conversing easily Head: Normocephalic, Atraumatic Eyes: PERRL, conjunctivae normal, anicteric sclerae ENMT: external ear and nose normal, oropharynx normal Neck: trachea midline, no thyromegaly normal visual inspection Respiratory: normal respiratory effort, lungs clear to auscultation, no wheeze, rales, rhonchi. Normal insp/exp effort, no accessory muscle use Cardiovascular: Bradycardic rate with ectopy, regular rhythm, no murmur, bilateral severe lymphedema with bilateral compressive dressings in place. Vessels: no JVD or carotid bruit Chest: normal inspection of chest Abdomen: Protuberant abdomen secondary to obesity, firm, nontender, no hepatosplenomegaly , normal active bowel sounds throughout Musculoskeletal: no cyanosis or clubbing, extremities motor strength 5/5 Skin: no rashes, warm and dry normal turgor Neurologic: PERRL, EOMI, accommodation nl, no face palsy, no dysarthria CN's II-XI intact bilaterally and moves all extremities Psychiatric: A+Ox3, euthymic affect Lymphatic: no cervical or axillary lymphadenopathy : deferred Results & Data Vital Signs (Past 12 Hours) Vital Signs Temp Pulse Pulse Resp BP BP Pulse Ox 08/07/19 11:56 76 22 198/69 H 96 08/07/19 10:32 60 19 164/60 H 95 08/07/19 09:38 94 08/07/19 09:22 94 08/07/19 09:19 36.3 C L 41 L 21 221/94 H 94 Laboratory Results Short CBC 08/07/19 08/07/19 Range/Units 10:21 10:21 WBC 7.89 (4.8-10.8) K/uL Hgb 12.9 (12.0-16.0) g/dL Hct 39.9 (37-47) % Plt Count 228 (130-400) K/uL Est GFR (Non-Af Amer) 66.2 BMP 08/07/19 10:21 Sodium 142 Potassium 3.9 Chloride 112 H Carbon Dioxide 26 BUN 10 Creatinine 0.90 Glucose 81 Calcium 9.1 Cardiac Enzymes 08/07/19 Range/Units 10:21 Troponin I < 0.015 (0-0.045) ng/ml Liver Function 08/07/19 Range/Units 10:21 Total Bilirubin 0.4 (0.2-1) mg/dl AST 20 (15-37) U/L ALT 38 (12-78) U/L Alkaline Phosphatase 106 (45-117) U/L Albumin 3.5 (3.4-5.0) gm/dl Diagnostic Findings CXR: IMPRESSION: 1. Minimal bibasilar opacities likely atelectasis or scarring. These are largely chronic. No convincing evidence of acute cardiopulmonary disease. ECG Rate (beats per minute): 37 Rhythm: normal sinus Additional Comments: bigemy HR on EKG 78 but R-R interval 37 Code Status & VTE Plan Code Status Full Code VTE Prophylaxis Plan VTE Prophylaxis will be ordered: Yes Supervising Physician Co-Signing Physician Notes Attending addendum Patient was seen and examined in emergency room She was sent in from wound clinic with hypotension and bradycardia without any significant symptoms She has noted to have ventricular bigeminy with first-degree AV block She denies any symptoms during my examination On examination She is obese and sitting at the edge of the bed without any symptoms She was noted to have blood sugar of 57 prior to my examination without any symptoms Her blood pressure noted to be very high and at 1 point it went up to systolic 221 Chest-decreased breath sounds otherwise clear Heart-S1-S2. 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-alert, awake and oriented x3 Admission labs and EKG and imaging studies reviewed Admitted with hypotension and bradycardia Noted to have TIA symptoms and will have further evaluation with MRI as above Diabetes type 2 on insulin Agree with assessment and plan as outlined above by ALO Ayala Dr (1) Hypothyroidism Hypothyroidism type: unspecified Qualified Code(s): E03.9 - Hypothyroidism, unspecified (2) Venous stasis ulcer Laterality: left Non-pressure ulcer stage: limited to breakdown of skin Varicose vein presence: unspecified whether present Venous stasis ulcer site: calf Qualified Code(s): I83.022 - Varicose veins of left lower extremity with ulcer of calf; L97.221 - Non-pressure chronic ulcer of left calf limited to breakdown of skin (3) HTN (hypertension) Hypertension type: unspecified Qualified Code(s): I10 - Essential (primary) hypertension
[2019-08-07] MEDS ORDERED: DEXTROSE 50% 50 ML SYRINGE IV PRN (14:11)
[2019-08-07] MEDS ORDERED: ONDANSETRON INJ 2 MG/ML 2 ML VIAL IV PRN (14:11)
[2019-08-07] MEDS ORDERED: POLYETHYLENE (MIRALAX) 17 GM PACK PO PRN (14:11)
[2019-08-07] MEDS ORDERED: HydrALAZINE HCL 20 MG/ML VIAL IV PRN (14:11)
[2019-08-07] MEDS ORDERED: GLUCAGON FOR INJ 1 MG VIAL SQ PRN (14:11)
[2019-08-07] MEDS ORDERED: ACETAMINOPHEN 325 MG TAB PO PRN (14:11)
[2019-08-07] MEDS ORDERED: GLUCOSE 10 TABS/TUBE PO PRN (14:11)
[2019-08-07] MEDS ORDERED: ALUMINUM/MAGNESIUM SUSP 30 ML UDC PO PRN (14:11)
[2019-08-07] MEDS ORDERED: GLUCOSE 40% GEL 15 GM TUBE PO PRN (14:11)
[2019-08-07] MEDS ORDERED: CARBOHYDRATES FOR HYPOGLYCEMIA PO PRN (14:11)
[2019-08-07] MEDS ORDERED: lisinopriL 20 MG TAB PO STA (15:21)
--- NOTE | 2019-08-07 15:23 | Cardiology Consultation ---
Date of Consultation August 07, 2019 Assessment & Plan (1) HTN (hypertension): Uncontrolled and borderline hypertensive urgency. She has been compliant with her outpatient medical regimen, so, at this time I will increase her lisinopril to 40 mg daily and give her an additional 20 mg p.o. now. Should her pressures remain elevated we could always discontinue her diltiazem and instead switch her to amlodipine a dihydropyridine calcium channel melly for greater antihypertensive effects (2) Bradycardia: False reading due to frequent PVCs. Would continue outpatient metoprolol and diltiazem at this time. (3) PSVT (paroxysmal supraventricular tachycardia): Has been in sinus for some time now. We will continue outpatient regimen. (4) Lymphedema: (5) Venous stasis ulcer: History of Present Illness Reason for Consultation: Hypertensive urgency and frequent PVCs Requesting Physician: Dr. Kaye Attending Physician: Savita Kaye MD History of Present Illness It was my pleasure to see Mrs. Cervantes in consultation today August 07, 2019. She is a very pleasant 69-year-old woman who normally follows with myself as an outpatient for history of hypertension and paroxysmal supraventricular tachycardia. She presented to the emergency room today at the urging of the wound clinic after she was found to be bradycardic and hypertensive. She is undergoing continuous therapy for her lower extremity lymphedema and wounds. At today's visit she was found to have a heart rate reportedly of 30 and an elevated blood pressure reading. She states that while her blood pressure was elevated she did notice a pulsing sensation behind her eye feeling as though her heart was beating in her. When she relayed this to the staff she was sent to the emergency department. She was then admitted to telemetry. Currently she is feeling well at rest but does relay that she been going through a great deal of emotional stress at home lately. She has been caring for her 3-year-old and [id number] grandsons very frequently lately and fortunately they have been ill. This has been causing a great deal of stress for her and she is now finding that she is having difficulty dealing with it. Prior to today though she denies experiencing any recent chest pain, shortness of breath, palpitations, lightheadedness, dizziness or syncope. She is been taking her medications as directed without issue. Past medical history as per my most recent outpatient office note: 1.Hypertension. 2.Paroxysmal supraventricular tachycardia. 3.Chest pain secondary to SVT. 4.Chest pain secondary to anxiety. 5.Tobacco abuse, resolved. 6.Diabetes. 7.Lymphedema. 8.History of breast cancer status post mastectomy. Allergies Allergy/AdvReac Type Severity Reaction Status Date / Time fentanyl Allergy Severe Anaphylaxis Verified 08/07/19 10:30 Quinolones Allergy Intermediate CIPRO-HIVES Verified 08/07/19 10:30 latex Allergy Mild rash, and Verified 08/07/19 10:30 blisters black pepper Allergy Unknown Verified 08/07/19 15:10 adhesive AdvReac Unknown rash Verified 08/07/19 10:30 codeine AdvReac Unknown hallucinati Verified 08/07/19 10:30 ons metformin AdvReac Unknown gi upset Verified 08/07/19 15:10 sitagliptin AdvReac Unknown GI SYMPTOMS Verified 08/07/19 10:30 Home Medications Home Medications Medication Instructions Recorded Confirmed Type albuterol sulfate 90 mcg/actuation 2 puffs INH Q4H PRN gm 07/29/18 08/07/19 History aerosol inhaler aspirin 81 mg tablet,delayed 81 mg PO QAM 07/29/18 08/07/19 History release diltiazem HCl 120 mg capsule,24 120 mg PO QAM 07/29/18 08/07/19 History hr,extended release dulaglutide 0.75 mg/0.5 mL 1 dose SQ KAPLAN ml 07/29/18 08/07/19 History subcutaneous pen injector furosemide 20 mg tablet 20 mg PO QAM 07/29/18 08/07/19 History ipratropium 0.5 mg-albuterol 3 mg 3 ml INH Q4H PRN ml 07/29/18 08/07/19 History (2.5 mg base)/3 mL nebulization soln levothyroxine 100 mcg capsule 100 mcg PO QAM 07/29/18 08/07/19 History insulin aspart U-100 100 unit/mL 0 units SQ AC ml 03/27/19 08/07/19 History subcutaneous solution insulin degludec 100 unit/mL (3 160 units SQ QAM ml 03/27/19 08/07/19 History mL) subcutaneous pen pravastatin 20 mg tablet 20 mg PO QAM 03/27/19 08/07/19 History topiramate 50 mg tablet 50 mg PO QAM tab 10/25/19 03/06/20 History cholecalciferol (vitamin D3) 4,000 unit PO Q2D 08/07/19 08/07/19 History [Vitamin D3] lisinopril 20 mg PO QAM 08/07/19 08/07/19 History metoprolol succinate 25 mg PO QAM 08/07/19 08/07/19 History naproxen sodium [Aleve] 220 mg PO Q12H PRN 08/07/19 08/07/19 History potassium gluconate 99 mg PO QAM 08/07/19 08/07/19 History vitamin E 400 unit PO QAM 08/07/19 08/07/19 History Patient History Medical History Anxiety (Chronic) Arthritis (Chronic) Asthma (Chronic) COPD (chronic obstructive pulmonary disease) (Chronic) Diabetes 1.5, managed as type 2 (Chronic) H/O malignant neoplasm of breast (Resolved) Hyperlipidemia (Chronic) Hypertension (Chronic) Hypothyroidism (Chronic) Irritable bowel disease (Chronic) Lymphedema (Chronic) Partial thickness burn of back Pituitary macroadenoma (Chronic) PSVT (paroxysmal supraventricular tachycardia) (Chronic) Surgical History H/O bilateral mastectomy (Resolved) History of carpal tunnel release S/P cholecystectomy (Resolved) S/P oophorectomy (Resolved) S/P tubal ligation (Resolved) Family History Other Cancer Diabetes Heart disease Hypertension Social History Preferred Language: Sami Communication Ability: Effective Visual Impairment: No Limitations Hearing Ability: Normal [employer] Required: No Beliefs That Will Affect Care: None marital status: Current Living Situation: Spouse current occupational status: retired Other Information That Helps Us Care for You: No Feels Safe at Home: Yes Safety Concerns: Feels Safe At This Time Smoking Status: Former smoker packs per day: 2 ; Years Smoked: 30 ; Do You Dip or Chew Tobacco: No ; Smoking End Date: 05/18/2016 ; Hx Alcohol Use: No Hx Substance Use: No Review of Systems Review of Systems: All systems reviewed & are unremarkable except as noted in HPI & below Physical Exam Physical Exam: General: Awake, alert and oriented x 3. No acute distress. HEENT: Normocephalic, atraumatic. Pupils equal, round and reactive to light and accommodation. Extraocular muscles are intact. Anicteric sclera. Moist mucous membranes. Neck: No JVD. No bruit. Cardiovascular: Regular. Positive S-4. Normal S-1 and S-2. No S-3. No murmurs or rubs. Pulmonary: Clear to auscultation B/L. No rales, rhonchi or wheezing Abdomen: Bowel sounds x 4, soft. No rebound, guarding or tenderness. No organomegaly. Extremities: No clubbing, cyanosis or edema. +2 pedal pulses bilaterally. Skin: Warm and dry. Results & Data ([facility]) Vital Signs (Past 12 Hours) Vital Signs Temp Pulse Pulse Resp BP BP Pulse Ox 08/07/19 15:20 36.3 C L 62 20 142/71 H 94 08/07/19 14:12 36.6 C 80 18 163/58 H 96 08/07/19 14:11 79 08/07/19 13:42 77 21 161/63 H 97 08/07/19 11:56 76 22 198/69 H 96 08/07/19 10:32 60 19 164/60 H 95 08/07/19 09:38 94 08/07/19 09:22 94 08/07/19 09:19 36.3 C L 41 L 21 221/94 H 94 Laboratory Results Laboratory Results - last 24 hr 08/07/19 08/07/19 08/07/19 10:21 10:21 10:21 WBC 7.89 RBC 4.47 Hgb 12.9 Hct 39.9 MCV 89.3 MCH 28.9 MCHC 32.3 RDW Std Deviation 46.9 H RDW Coeff of Mitch 14.3 Plt Count 228 MPV 11.6 H Immature Gran % (Auto) 0.1 Neut % (Auto) 67.3 Lymph % (Auto) 22.9 [place] % (Auto) 7.4 Eos % (Auto) 2.2 Baso % (Auto) 0.1 Immature Gran # (Auto) 0.01 Neut # (Auto) 5.31 Lymph # (Auto) 1.81 [place] # (Auto) 0.58 Eos # (Auto) 0.17 Baso # (Auto) 0.01 PT 10.5 INR 1.0 APTT 27.6 PTT Ratio 1.0 Sodium 142 Potassium 3.9 Chloride 112 H Carbon Dioxide 26 Anion Gap 5.0 BUN 10 Creatinine 0.90 Est Cr Clr Drug Dosing 83.7 Est GFR ( Amer) 76.7 Est GFR (Non-Af Amer) 66.2 BUN/Creatinine Ratio 11.5 Glucose 81 POC Glucose Calcium 9.1 Total Bilirubin 0.4 AST 20 ALT 38 Alkaline Phosphatase 106 Troponin I < 0.015 NT-Pro-B Natriuret Pep 675 Total Protein 7.3 Albumin 3.5 Globulin 3.8 Albumin/Globulin Ratio 0.9 Lipase 145 TSH 08/07/19 08/07/19 08/07/19 10:21 12:56 13:46 WBC RBC Hgb Hct MCV MCH MCHC RDW Std Deviation RDW Coeff of Mitch Plt Count MPV Immature Gran % (Auto) Neut % (Auto) Lymph % (Auto) [place] % (Auto) Eos % (Auto) Baso % (Auto) Immature Gran # (Auto) Neut # (Auto) Lymph # (Auto) [place] # (Auto) Eos # (Auto) Baso # (Auto) PT INR APTT PTT Ratio Sodium Potassium Chloride Carbon Dioxide Anion Gap BUN Creatinine Est Cr Clr Drug Dosing Est GFR ( Amer) Est GFR (Non-Af Amer) BUN/Creatinine Ratio Glucose POC Glucose 54 L* 119 H Calcium Total Bilirubin AST ALT Alkaline Phosphatase Troponin I NT-Pro-B Natriuret Pep Total Protein Albumin Globulin Albumin/Globulin Ratio Lipase TSH 1.670 08/07/19 16:02 WBC RBC Hgb Hct MCV MCH MCHC RDW Std Deviation RDW Coeff of Mitch Plt Count MPV Immature Gran % (Auto) Neut % (Auto) Lymph % (Auto) [place] % (Auto) Eos % (Auto) Baso % (Auto) Immature Gran # (Auto) Neut # (Auto) Lymph # (Auto) [place] # (Auto) Eos # (Auto) Baso # (Auto) PT INR APTT PTT Ratio Sodium Potassium Chloride Carbon Dioxide Anion Gap BUN Creatinine Est Cr Clr Drug Dosing Est GFR ( Amer) Est GFR (Non-Af Amer) BUN/Creatinine Ratio Glucose POC Glucose 106 H Calcium Total Bilirubin AST ALT Alkaline Phosphatase Troponin I NT-Pro-B Natriuret Pep Total Protein Albumin Globulin Albumin/Globulin Ratio Lipase TSH Medications Administered Current Inpatient Medications Acetaminophen (Tylenol) 650 mg PO Q4H PRN PRN Reason: Pain or Fever Stop: 09/06/19 14:10 Al Hydrox/Mg Hydrox/Simethicone (Maalox) 15 ml PO Q4H PRN PRN Reason: Dyspepsia Stop: 09/06/19 14:10 Aspirin (Ecotrin Ectab) 81 mg PO QAM CURLY Stop: 09/07/19 08:59 Dextrose (Dextrose 50%) 25 - 50 ml IV UD PRN; Protocol PRN Reason: Hypoglycemia Protocol Stop: 09/06/19 14:10 Furosemide (Lasix) 20 mg PO QAM CURLY Stop: 09/07/19 08:59 Glucagon (Glucagen) 1 mg SQ UD PRN; Protocol PRN Reason: Hypoglycemia Protocol Stop: 09/06/19 14:10 Glucose (Dex4 Glucose) 4 - 8 tabs PO UD PRN; Protocol PRN Reason: Hypoglycemia Protocol Stop: 09/06/19 14:10 Glucose (Glucose 40%) 15 - 30 gm PO UD PRN; Protocol PRN Reason: Hypoglycemia Protocol Stop: 09/06/19 14:10 Heparin Sodium (Porcine) (Heparin Sodium (Porcine)) 5,000 units SQ Q8 CURLY Stop: 09/06/19 14:29 Hydralazine HCl (Hydralazine Hcl) 10 mg IV Q6H PRN PRN Reason: HTN Stop: 09/06/19 14:10 Insulin Aspart (Novolog Flexpen) 0 units SC ACHS [facility] Stop: 09/06/19 16:29 Levothyroxine Sodium (Synthroid) 100 mcg PO DAILYBB CURLY Stop: 09/07/19 06:29 Lisinopril (Zestril) 40 mg PO QAM CURLY Stop: 09/07/19 08:59 Metoprolol Succinate (Toprol Xl) 25 mg PO QAM CURLY Stop: 09/07/19 08:59 Miscellaneous (Carbohydrates For Hypoglycemia) 15 - 30 gm PO UD PRN PRN Reason: Hypoglycemia Protocol Stop: 09/06/19 14:10 Miscellaneous Information (Consult Glycemic Management Pharmacy) 1 ea N/A UD PRN; Protocol PRN Reason: Consult Stop: 09/06/19 15:28 Ondansetron HCl (Zofran) 4 mg IV Q6H PRN PRN Reason: Nausea Stop: 09/06/19 14:10 Polyethylene Glycol (Miralax Powder Packet) 17 gm PO DAILY PRN PRN Reason: Constipation Stop: 09/06/19 14:10 Pravastatin Sodium (Pravachol) 20 mg PO QAM [facility] Stop: 09/07/19 08:59 Topiramate (Topamax) 50 mg PO QAM [facility] Stop: 09/07/19 08:59 Vitamin E (Vitamin E) [facility] [place]: 09/07/19 08:59 (1) HTN (hypertension) Hypertension type: unspecified Qualified Code(s): I10 - Essential (primary) hypertension (2) Venous stasis ulcer Venous stasis ulcer site: calf Varicose vein presence: unspecified whether present Laterality: left Non-pressure ulcer stage: limited to breakdown of skin Qualified Code(s): I83.022 - Varicose veins of left lower extremity with ulcer of calf; L97.221 - Non-pressure chronic ulcer of left calf limited to breakdown of skin
[2019-08-07] MEDS ORDERED: PHARMACY GLYCEMIC MGMT CONSULT PRN (15:29)
--- NOTE | 2019-08-07 15:56 | Electrocardiogram Report ---
Test Reason : Blood Pressure : / mmHG Vent. Rate : 071 BPM Atrial Rate : 071 BPM P-R Int : 160 ms QRS Dur : 084 ms QT Int : 406 ms P-R-T Axes : 057 037 027 degrees QTc Int : 441 ms Sinus rhythm with frequent Premature ventricular complexes in a pattern of bigeminy Possible Left atrial enlargement Cannot rule out Anterior infarct , age undetermined Abnormal ECG When compared with ECG of 09-AUG-2016 11:26, Premature ventricular complexes are now Present Confirmed by Melchor Styles ([id number]) on 08/07/2019 3:56:33 PM Referred By: Confirmed By:Melchor Styles
--- NOTE | 2019-08-07 16:20 | CT Scan Report ---
CT SCAN OF THE BRAIN WITHOUT IV CONTRAST CLINICAL HISTORY: Strokelike symptoms. COMPARISON STUDY: MRI of the brain dated 03/10/2013. TECHNIQUE: Unenhanced axial CT scan of the brain is performed from the vertex to the skull base. A d ose lowering technique was utilized adhering to the principles of ALARA. CT DOSE: 720.23 mGy.cm FINDINGS: Brain parenchyma: There is minimal microangiopathic disease. Question postoperative change in the reg ion of the sella turcica. There is no hemorrhage, mass effect, or evidence of acute territorial ische karishma by CT criteria. Ellis-white matter differentiation is preserved. No extra-axial fluid collection i s seen. Ventricles, sulci, cisterns: Normal in configuration. Intracranial vasculature: There is atherosclerotic calcification of the cavernous carotid arteries. Calvarium: Unremarkable. Sinuses and mastoids: There is evidence of previous paranasal sinus surgery. A 2.4 cm retention cyst is noted in the left maxillary antrum. There is subtotal opacification of the sphenoid sinuses. Trace mucosal thickening is noted in the anterior right ethmoid sinuses. The mastoid air cells are well pn eumatized. Orbits: The bony orbits are grossly intact. There are bilateral ocular lens implants. IMPRESSION: There is no hemorrhage, mass effect, or evidence of acute territorial ischemia by CT agustin vazquez. ACT 112: Negative or not required by law. Electronically signed by: Jay Sultana M.D. 08/07/2019 4:19 PM
[2019-08-07] MEDS: HEPARIN SOD 5,000 UNIT/0.5 ML VIAL SQ SCH ×2 (18:01→21:25)
[2019-08-07] MEDS: CLOPIDOGREL BISULFATE 75 MG TAB PO SCH (18:01)
[2019-08-07] MEDS ORDERED: LORazepam 0.5 MG/1 ML VIAL IV STA (18:22)
[2019-08-07] MEDS: INSULIN ASPART 100 UNITS/ML 3 ML PEN SC SCH ×2 (18:37→21:24)
--- NOTE | 2019-08-07 21:07 | Magnetic Resonance Report ---
MRI OF THE BRAIN WITHOUT IV CONTRAST CLINICAL HISTORY: Right facial numbness. COMPARISON STUDY: CT of the brain dated 08/07/2019. MRI of the brain dated 03/10/2013. TECHNIQUE: MRI of the brain was performed utilizing various T1 and T2-weighted sequences in the axial , sagittal, and coronal planes. IV contrast was not administered for this examination. FINDINGS: Brain parenchyma: There is minimal microangiopathic change. There is no hemorrhage or mass effect. Th ere is no restricted diffusion to suggest acute ischemia. A small focus of calcification or hemosider in deposition in the right cerebellar peduncle is unchanged. Ellis-white matter differentiation is pre served. No extra-axial fluid collection is seen. The cerebellar tonsils are normal in configuration. Ventricles, sulci, and cisterns: Normal in configuration. Pituitary and sella: Partially empty sella is incidentally noted. This may be on a postoperative basi s. Intracranial vasculature: Normal flow voids are maintained at the skull base. Orbits: The bony orbits are grossly intact. Orbital contents are normal in appearance noting bilatera l ocular lens implants. Sinuses and mastoids: There is evidence of previous paranasal sinus surgery. There is a 3 cm retentio n cyst in the left maxillary antrum. There is subtotal opacification of the sphenoid sinuses. Mild mu cosal thickening is noted in the ethmoid sinuses. The mastoid air cells are well pneumatized. Calvarium: Unremarkable. Cervical cord: Partially visualized cervical spinal cord is normal in morphology and signal intensity . IMPRESSION: No acute intracranial abnormality. ACT 112: Negative or not required by law. Electronically signed by: Jay Sultana M.D. 08/07/2019 9:06 PM
[2019-08-08] MEDS: HEPARIN SOD 5,000 UNIT/0.5 ML VIAL SQ SCH ×2 (06:27→15:10)
[2019-08-08] MEDS ORDERED: LEVOTHYROXINE SODIUM 100 MCG TABLET PO SCH (06:30)
[2019-08-08 08:23] LABS: Basophils # (auto) 0.02 K/uL (0-0.2); Basophils % (auto) 0.3 %; Eosinophils # (auto) 0.15 K/uL (0-0.5); Eosinophils % (auto) 2.5 %; Hematocrit (blood only) 40.8 % (37-47); Hemoglobin 13.1 g/dL (12.0-16.0); Immature Granulocytes # (auto) 0.01 K/uL (0.00-0.02); Immature Granulocytes % (auto) 0.2 %; Lymphocytes # (auto) 1.43 K/uL (1.2-3.4); Lymphocytes % (auto) 23.9 %; Mean Corpuscular Hemoglobin 28.9 pg (25-34); Mean Corpuscular Hgb Conc 32.1 g/dL (32-36); Mean Corpuscular Volume 90.1 fL (80-100); Mean Platelet Volume 11.6 fL (7.4-10.4); Monocytes # (auto) 0.46 K/uL (0.11-0.59); Monocytes % (auto) 7.7 %; Neutrophils # (auto) 3.92 K/uL (1.4-6.5); Neutrophils % (auto) 65.4 %; Platelet Count 224 K/uL (130-400); RDW Coefficient of Variation 14.4 % (11.5-14.5); RDW Standard Deviation 47.2 fL (36.4-46.3); Red Blood Count 4.53 M/uL (4.2-5.4); White Blood Count 5.99 K/uL (4.8-10.8)
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
[2019-08-08 08:48] LABS: BUN Creatinine Ratio 13.8 (10-20); Calcium 8.8 mg/dl (8.5-10.1); Creatinine Clr Calc Pharmacy 83.7 ml/min; Est GFR (African American) 76.7; Est GFR (Non-African American) 66.2; Potassium 4.3 mmol/L (3.5-5.1)
[2019-08-08] MEDS ORDERED: TRESIBA SQ ONE ×2 (09:00)
[2019-08-08] MEDS ORDERED: lisinopriL 40 MG TAB PO SCH (09:00)
[2019-08-08] MEDS ORDERED: lisinopriL 20 MG TAB PO SCH (09:00)
[2019-08-08] MEDS ORDERED: FUROSEMIDE 20 MG TAB PO SCH (09:00)
[2019-08-08] MEDS ORDERED: TOPIRAMATE 50 MG TAB PO SCH (09:00)
[2019-08-08] MEDS ORDERED: PRAVASTATIN SOD 20 MG TAB PO SCH (09:00)
[2019-08-08] MEDS ORDERED: ASPIRIN 81 MG ECTAB PO SCH (09:00)
[2019-08-08] MEDS ORDERED: NON-FORMULARY MEDICATION (Potassium Gluconate 99 MG) PO SCH (09:00)
[2019-08-08] MEDS ORDERED: METOPROLOL SUCC 25MG EXT REL TAB PO SCH (09:00)
[2019-08-08] MEDS ORDERED: TOCOPHERYL, DL-ALPHA 400 UNITS CAP PO SCH (09:00)
[2019-08-08] MEDS: CLOPIDOGREL BISULFATE 75 MG TAB PO SCH (09:05)
[2019-08-08] MEDS: INSULIN ASPART 100 UNITS/ML 3 ML PEN SC SCH ×2 (09:06→12:22)
--- NOTE | 2019-08-08 09:51 | Pharmacy Report ---
Glycemic Control Consultation - Date of Service August 08, 2019 - Scope Scope: Glycemic Pharmacist consulted for glycemic control and to write orders per [facility] inpatient glycemic control protocol. - Objective Weight: 126 kg Accuchecks BSG (last 24hrs): 08/07/19 08/07/19 08/07/19 10:21 12:56 13:46 Glucose 81 POC Glucose 54 L* 119 H 08/07/19 08/07/19 08/07/19 16:02 16:20 18:25 Glucose POC Glucose 106 H 103 H 105 H 08/07/19 08/08/19 08/08/19 20:04 06:06 07:01 Glucose POC Glucose 135 H 81 76 08/08/19 08:01 Glucose 69 L POC Glucose Laboratory Data (last 24hrs): 08/07/19 08/08/19 10:21 08:01 Potassium 3.9 4.3 Carbon Dioxide 26 24 Anion Gap 5.0 5.0 Creatinine 0.90 0.90 Est Cr Clr Drug Dosing 83.7 83.7 - Recent Pertinent Medications Outpatient Anti-diabetic Regimen: * Tresiba 160u QAM + Novolog + Trulicity * A1c = 6.2 % 07/06/2019 - Assessment & Plan Assessment & Plan: ASSESSMENT: * Pt is a 69yo F type II diabetic. PMHx consistent with HTN, HLD, COPD, Pituitary adenoma, breast CA, pSVT, among others. Her outpt glycemic management is excellent as evidenced by her AC of 6.2%. She is not anemic, A1C is a reliable assessment of her diabetic status. * Had a long discussion bedside with pt this AM. She insists on continuing her home Rx of Tresiba 160u AM. By her own admission she is consuming less carbs than she normally would at home. After a lengthy discussion pt and I both agreed that Tresiba 80u this AM will be safer. She and I will reassess at lunch. PLAN FOR INPATIENT GLYCEMIC CONTROL: * Holding outpatient Trulicity * Basal insulin * Tresiba 80u this AM and we will reassess at lunch * Bolus insulin * NovoLog per scale ACHS or Q6hrs while NPO * Goal Range: Low 120 mg/dL - High 160 mg/dL * Correction Factor: 20 mg/dL/unit * Nutritional / Prandial insulin per carb ratio of 1 unit per 6 grams CHO consumed * Please note that the plan above was derived based on current level of insulin resistance and hospital stress. These recommendations are appropriate for inpatient admission only. Plan of care upon discharge will need to be reassessed to avoid potential outpatient hypo/hyperglycemia. Thank you.
--- NOTE | 2019-08-08 10:39 | Cardiology Progress Note ---
Date of Service August 08, 2019 Assessment & Plan (1) HTN (hypertension): (2) Bradycardia: (3) PAC (premature atrial contraction): The patient overnight had some numbness of the right side of her face and right upper extremity. She had an urgent CT completed which was unremarkable and neurology will be seeing her. She has no new cardiac complaints today. Blood pressure is relatively better controlled. On the telemetry she has a sinus rhythm with frequent premature atrial contractions which is not new for her. She has a history of frequent PACs. I do not believe any additional cardiac testing is indicated at this time. Subjective The patient had numbness of the right face and upper extremity on 2 occasions yesterday. Neurology evaluation is pending. She has no new cardiac complaints today. Review of Systems Review of Systems: All systems reviewed & are unremarkable except as noted in HPI & below Nothing additional to add. Physical Exam Physical Exam: General: no acute distress and stated age Head: normocephalic, no masses, lesions, tenderness or abnormalities Eyes: conjunctiva are pink and non-injected, sclera clear Neck: supple, no adenopathy, no bruits, normal jugular venous pulse, no hepatojugular reflux Chest: normal shape and normal respiratory effort Lungs: clear to auscultation and percussion Cardiac Exam: - regular rate & rhythm, no murmurs gallops or rubs - normal S1, normal S2 Pulses: 2(+) throughout Abdomen: Obese abdomen soft, non-tender, no abnormal masses and no hepatosplenomegaly Musculoskeletal: no gait disturbance, no joint inflammation, no deforming arthritis Extremities: Lymphedema both lower extremities Neuro: grossly normal exam Results & Data Vital Signs (Past 12 Hours) Vital Signs Temp Pulse Pulse Resp BP Pulse Ox 08/08/19 07:05 36.5 C 56 L 19 156/76 H 94 08/08/19 06:08 84 155/60 H 08/08/19 04:16 36.4 C L 85 18 102/46 L 95 08/07/19 23:34 36.3 C L 70 19 151/61 H 96 08/07/19 22:44 36.4 C L 64 20 135/57 L 96 Laboratory Results Laboratory Results - last 24 hr 08/07/19 08/07/19 08/07/19 10:21 10:21 10:21 WBC RBC Hgb Hct MCV MCH MCHC RDW Std Deviation RDW Coeff of Mitch Plt Count MPV Immature Gran % (Auto) Neut % (Auto) Lymph % (Auto) [place] % (Auto) Eos % (Auto) Baso % (Auto) Immature Gran # (Auto) Neut # (Auto) Lymph # (Auto) [place] # (Auto) Eos # (Auto) Baso # (Auto) PT 10.5 INR 1.0 APTT 27.6 PTT Ratio 1.0 Sodium 142 Potassium 3.9 Chloride 112 H Carbon Dioxide 26 Anion Gap 5.0 BUN 10 Creatinine 0.90 Est Cr Clr Drug Dosing 83.7 Est GFR ( Amer) 76.7 Est GFR (Non-Af Amer) 66.2 BUN/Creatinine Ratio 11.5 Glucose 81 POC Glucose Calcium 9.1 Total Bilirubin 0.4 AST 20 ALT 38 Alkaline Phosphatase 106 Troponin I < 0.015 NT-Pro-B Natriuret Pep 675 Total Protein 7.3 Albumin 3.5 Globulin 3.8 Albumin/Globulin Ratio 0.9 Lipase 145 TSH 1.670 08/07/19 08/07/19 08/07/19 12:56 13:46 16:02 WBC RBC Hgb Hct MCV MCH MCHC RDW Std Deviation RDW Coeff of Mitch Plt Count MPV Immature Gran % (Auto) Neut % (Auto) Lymph % (Auto) [place] % (Auto) Eos % (Auto) Baso % (Auto) Immature Gran # (Auto) Neut # (Auto) Lymph # (Auto) [place] # (Auto) Eos # (Auto) Baso # (Auto) PT INR APTT PTT Ratio Sodium Potassium Chloride Carbon Dioxide Anion Gap BUN Creatinine Est Cr Clr Drug Dosing Est GFR ( Amer) Est GFR (Non-Af Amer) BUN/Creatinine Ratio Glucose POC Glucose 54 L* 119 H 106 H Calcium Total Bilirubin AST ALT Alkaline Phosphatase Troponin I NT-Pro-B Natriuret Pep Total Protein Albumin Globulin Albumin/Globulin Ratio Lipase TSH 08/07/19 08/07/19 08/07/19 16:20 18:25 20:04 WBC RBC Hgb Hct MCV MCH MCHC RDW Std Deviation RDW Coeff of Mitch Plt Count MPV Immature Gran % (Auto) Neut % (Auto) Lymph % (Auto) [place] % (Auto) Eos % (Auto) Baso % (Auto) Immature Gran # (Auto) Neut # (Auto) Lymph # (Auto) [place] # (Auto) Eos # (Auto) Baso # (Auto) PT INR APTT PTT Ratio Sodium Potassium Chloride Carbon Dioxide Anion Gap BUN Creatinine Est Cr Clr Drug Dosing Est GFR ( Amer) Est GFR (Non-Af Amer) BUN/Creatinine Ratio Glucose POC Glucose 103 H 105 H 135 H Calcium Total Bilirubin AST ALT Alkaline Phosphatase Troponin I NT-Pro-B Natriuret Pep Total Protein Albumin Globulin Albumin/Globulin Ratio Lipase TSH 08/08/19 08/08/19 08/08/19 06:06 07:01 08:01 WBC 5.99 RBC 4.53 Hgb 13.1 Hct 40.8 MCV 90.1 MCH 28.9 MCHC 32.1 RDW Std Deviation 47.2 H RDW Coeff of Mitch 14.4 Plt Count 224 MPV 11.6 H Immature Gran % (Auto) 0.2 Neut % (Auto) 65.4 Lymph % (Auto) 23.9 [place] % (Auto) 7.7 Eos % (Auto) 2.5 Baso % (Auto) 0.3 Immature Gran # (Auto) 0.01 Neut # (Auto) 3.92 Lymph # (Auto) 1.43 [place] # (Auto) 0.46 Eos # (Auto) 0.15 Baso # (Auto) 0.02 PT INR APTT PTT Ratio Sodium Potassium Chloride Carbon Dioxide Anion Gap BUN Creatinine Est Cr Clr Drug Dosing Est GFR ( Amer) Est GFR (Non-Af Amer) BUN/Creatinine Ratio Glucose POC Glucose 81 76 Calcium Total Bilirubin AST ALT Alkaline Phosphatase Troponin I NT-Pro-B Natriuret Pep Total Protein Albumin Globulin Albumin/Globulin Ratio Lipase TSH 08/08/19 08:01 WBC RBC Hgb Hct MCV MCH MCHC RDW Std Deviation RDW Coeff of Mitch Plt Count MPV Immature Gran % (Auto) Neut % (Auto) Lymph % (Auto) [place] % (Auto) Eos % (Auto) Baso % (Auto) Immature Gran # (Auto) Neut # (Auto) Lymph # (Auto) [place] # (Auto) Eos # (Auto) Baso # (Auto) PT INR APTT PTT Ratio Sodium 142 Potassium 4.3 Chloride 113 H Carbon Dioxide 24 Anion Gap 5.0 BUN 12 Creatinine 0.90 Est Cr Clr Drug Dosing 83.7 Est GFR ( Amer) 76.7 Est GFR (Non-Af Amer) 66.2 BUN/Creatinine Ratio 13.8 Glucose 69 L POC Glucose Calcium 8.8 Total Bilirubin AST ALT Alkaline Phosphatase Troponin I NT-Pro-B Natriuret Pep Total Protein Albumin Globulin Albumin/Globulin Ratio Lipase TSH Medications Administered Current Inpatient Medications Acetaminophen (Tylenol) 650 mg PO Q4H PRN PRN Reason: Pain or Fever Stop: 09/06/19 14:10 Al Hydrox/Mg Hydrox/Simethicone (Maalox) 15 ml PO Q4H PRN PRN Reason: Dyspepsia Stop: 09/06/19 14:10 [facility]ir[facility]ab) [facility] Stop: 09/07/19 08:59 Last Admin: 08/08/19 09:04 Dose: 81 mg Documented by: Clopidogrel Bisulfate (Plavix) 75 mg PO QAM [facility] Stop: 09/06/19 16:59 Last Admin: 08/08/19 09:05 Dose: 75 mg Documented by: Dextrose (Dextrose 50%) 25 - 50 ml IV UD PRN; Protocol PRN Reason: Hypoglycemia Protocol Stop: 09/06/19 14:10 Furosemide (Lasix) [facility] Stop: 09/07/19 08:59 Last Admin: 08/08/19 09:04 Dose: 20 mg Documented by: Glucagon (Glucagen) 1 mg SQ UD PRN; Protocol PRN Reason: Hypoglycemia Protocol Stop: 09/06/19 14:10 Glucose (Dex4 Glucose) 4 - 8 tabs PO UD PRN; Protocol PRN Reason: Hypoglycemia Protocol Stop: 09/06/19 14:10 Glucose (Glucose 40%) 15 - 30 gm PO UD PRN; Protocol PRN Reason: Hypoglycemia Protocol Stop: 09/06/19 14:10 Heparin Sodium (Porcine) (Heparin Sodium (Porcine)) 5,000 units SQ Q8 [facility]Y Stop: 09/06/19 14:29 Last Admin: 08/08/19 06:27 Dose: 5,000 units Documented by: Hydralazine HCl (Hydralazine Hcl) 10 mg IV Q6H PRN PRN Reason: HTN Stop: 09/06/19 14:10 Insulin Aspart (Novolog Flexpen) 0 units SC ACHS [facility] Stop: 09/06/19 16:29 Last Admin: 08/08/19 09:06 Dose: 7 units Documented by: Levothyroxine Sodium (Synthroid) 100 mcg PO DAILYBB [facility] Stop: 09/07/19 06:29 Last Admin: 08/08/19 06:27 Dose: 100 mcg Documented by: [facility]inopril (Zestril) [facility] Stop: 09/07/19 08:59 Last Admin: 08/08/19 09:05 Dose: 40 mg Documented by: Metoprolol Succinate (Toprol Xl) [facility] Stop: 09/07/19 08:59 Last Admin: 08/08/19 09:05 Dose: 25 mg Documented by: Miscellaneous (Carbohydrates For Hypoglycemia) 15 - 30 gm PO UD PRN PRN Reason: Hypoglycemia Protocol Stop: 09/06/19 14:10 Miscellaneous Information (Consult Glycemic Management Pharmacy) 1 ea N/A UD PRN; Protocol PRN Reason: Consult Stop: 09/06/19 15:28 Ondansetron HCl (Zofran) 4 mg IV Q6H PRN PRN Reason: Nausea Stop: 09/06/19 14:10 Polyethylene Glycol (Miralax Powder Packet) 17 gm PO DAILY PRN PRN Reason: Constipation Stop: 09/06/19 14:10 Pravastatin Sodium (Pravachol) 20 mg PO [facility] Stop: 09/07/19 08:59 Last Admin: 08/08/19 09:04 Dose: 20 mg Documented by: Topiramate (Topamax) 50 mg PO [facility] Stop: 09/07/19 08:59 Last Admin: 08/08/19 09:04 Dose: 50 mg Documented by: Vitamin E (Vitamin E) 400 units PO [facility] Stop: 09/07/19 08:59 Last Admin: 08/08/19 09:04 Dose: 400 units Documented by: (1) HTN (hypertension) Hypertension type: unspecified Qualified Code(s): I10 - Essential (primary) hypertension
--- NOTE | 2019-08-08 14:53 | Hospitalist Progress Note ---
Date of Service August 08, 2019 Assessment & Plan (1) HTN (hypertension): -as per admission history and physical "This is a 69-year-old female who has significant PMH of insulin-dependent T2DM, HTN, HLD, COPD, history of PSVT, pituitary macroadenoma status post resection, hypothyroidism, history of breast cancer status post bilateral mastectomy, bilateral lymphedema, history of tobacco abuse, left lower extremity wound who presents to ED at the recommendation of wound clinic secondary to hypertension and bradycardia. SBP in ED initially 198/69, now 161/63 without antihypertensive HR in 30s-40s, asymptomatic bigeminy" -patient's blood pressure was brought down with prn hydralazine and currently on increased lisinopril -discharge on lisinopril 40 mg daily for hypertension -patient should have sleep study as coordinated by primary care doctor to rule out obstructive sleep apnea as contribution to hypertension Transient ischemic attack (TIA) -At around 3:50 PM she complained numbness involving the right side face and right upper extremity and that happened while she was standing and felt dizzy. Did not have any other new symptoms and her blood pressure was not high at that time.she was taken to the ICU and stroke alert was called . She was evaluated by tele neurologist from [facility] and it was decided that she is not a candidate for TPA and by the time her numbness was improving and she did not have any other focal neuro deficit and her CT of the head remained unremarkable. She was advised to have Plavix on top of aspirin -Brain MRI: No acute intracranial abnormality -patient evaluated by Neurology Dr. Leyva on 08/08/2019 and he recommended to co ntinue dual antiplatelets aspirin 81 mg daily and clopidogrel 75 mg daily for 21 days, then aspirin 81 mg daily alone for possible TIA (transient ischemic attack) -initially, hospitalist, prescribed atorvastatin 40 mg daily to replace home dose pravastatin 20 mg daily in context of stroke prevention, but patient reported that she cannot take the higher dose statin. Patient may discuss with neurologist as outpatient upcoming appointments 08/11/2019 8:00 AM Provider Vishal Leyva DO Department Neurology [facility] 08/14/2019 11:10 AM Provider Kalen Gonzalez DO Department Family Practice [facility] 08/17/2019 8:15 AM Provider Geronimo Fowler MD Department Otolaryngology/Head & Neck/Facial Plastic Surgery 09/01/2019 8:10 AM Provider Kalen Gonzalez DO Department Family Practice [facility] 09/16/2019 11:00 AM Provider Yady Lucia MD Department Hematology/Oncology [facility] 09/30/2019 11:30 AM Provider Josseline Suárez MD Department Dermatology [facility] 01/15/2020 9:30 AM Provider Damian Davey Jr., DO Department Cardiology, [facility] 03/16/2020 11:00 AM Provider Sean Gaines MD Department Neurosurgery, [place] (2) Bradycardia: Premature Atrial Contraction -as per admission history and physical on 08/07/2019 "Pt with bigemy on rhythm strip and EKG with vent rate of 30s" -as per cardiology 08/07/2019 evaluation the alleged bradycardia is "False reading due to frequent PVCs. Would continue outpatient metoprolol and diltiazem at this time." -as per cardiology 08/08/2019 evaluation "Blood pressure is relatively better controlled. On the telemetry she has a sinus rhythm with frequent premature atrial contractions which is not new for her. She has a history of frequent PACs. I do not believe any additional cardiac testing is indicated at this time." (3) Dyslipidemia: statin therapy (4) Type 2 diabetes mellitus, with long-term current use of insulin: Type 2 diabetes mellitus, with long-term current use of insulin with Venous stasis ulcer last A1C 6.2 07/2019 continue rishi garcia, home dose insulin as outpatient (5) Venous stasis ulcer: pt follows Dr. Patino and wound clinic current tx is Cutimed Sorbact swab and plain Aquacel with 2 layer Coban wrap (6) Lymphedema: pt with b/l lymphedema continue lasix daily LLE wound - patient should follow up with usual outpatient wound care clinic patient should have sleep study as coordinated by primary care doctor to rule out obstructive sleep apnea as contribution to hypertension (7) Hypothyroidism: TSH 1.67 Continue levothyroxine (8) COPD (chronic obstructive pulmonary disease): no active exacerbation prn albuterol (9) DVT prophylaxis: SQ Heparin was given while in the hospital Discharge Diagnosis HTN (hypertension) Type 2 diabetes mellitus, with long-term current use of insulin with Venous stasis ulcer transient ischemic attack (TIA) Premature atrial contraction Bradycardia is ruled out Admission and Anticipated Discharge Date Admission Date: August 07, 2019 Subjective Patient commented on her previous episode of right facial numbness. no current numbness on my exams during today. patient is breathing on room air. no chest pain. no palpitations. no dizziness. when neurology saw the patient he was concerned that perhaps patient may have underlying sleep apnea Review of Systems Review of Systems: All systems reviewed & are unremarkable except as noted in HPI & below Physical Exam Constitutional: + obese and comfortable Eyes: PERRL, conjunctivae normal, anicteric sclerae EOM intact bilaterally ENMT: external ear and nose normal, oropharynx normal Neck: normal visual inspection Respiratory: normal respiratory effort, lungs clear to auscultation Cardiovascular: Rate/Rhythm: regular rate Gastrointestinal (Abdomen): normal bowel sounds, soft, nontender, no hepatosplenomegaly Musculoskeletal: Head/Neck/Chest: normocephalic Extremities: + lower extremity abnormal to inspection (bilateral legs in tight stockings) Neurologic: PERRL, EOMI, accommodation nl, no face palsy, no dysarthria CN's II-XI intact bilaterally Psychiatric: A+Ox3, euthymic affect Results & Data ([facility]) Vital Signs (Past 12 Hours) Vital Signs Temp Pulse Pulse Pulse Resp BP Pulse Ox 08/08/19 14:28 36.5 C 84 87 18 137/79 97 08/08/19 11:00 36.5 C 87 18 137/79 97 08/08/19 08:00 66 08/08/19 07:05 36.5 C 56 L 19 156/76 H 94 08/08/19 06:08 84 155/60 H 08/08/19 04:16 36.4 C L 85 18 102/46 L 95 (1) Hypothyroidism Hypothyroidism type: unspecified Qualified Code(s): E03.9 - Hypothyroidism, unspecified (2) Venous stasis ulcer Laterality: left Non-pressure ulcer stage: limited to breakdown of skin Varicose vein presence: unspecified whether present Venous stasis ulcer site: calf Qualified Code(s): I83.022 - Varicose veins of left lower extremity with ulcer of calf; L97.221 - Non-pressure chronic ulcer of left calf limited to breakdown of skin (3) HTN (hypertension) Hypertension type: unspecified Qualified Code(s): I10 - Essential (primary) hypertension
--- NOTE | 2019-08-08 15:15 | Discharge Summary ---
Date of Service August 08, 2019 Admission HPI Per Admitting Provider This is a 69-year-old female who has significant PMH of insulin-dependent T2DM, HTN, HLD, COPD, history of PSVT, pituitary macroadenoma status post resection, hypothyroidism, history of breast cancer status post bilateral mastectomy, bilateral lymphedema, history of tobacco abuse, left lower extremity wound who presents to ED at the recommendation of wound clinic secondary to hypertension and bradycardia. She follows with wound care secondary to a left lower extremity wound. She states a history of staph infection. She elicits over the past 2 months she has noticed approximately 20 pound weight gain mostly in abdominal girth. She also elicits increased shortness of breath with minimal exertion. She does note whenever her blood pressure get significantly high she does get a frontal headache with associated left, "white spots," in vision. She denies any associated lightheadedness, dizziness, syncope, chest pain, palpitations, nausea, vomiting, abdominal pain. She does have bilateral lower extremity swelling which is normal for her. She has not been taking her Lasix 20 mg daily due to fear of having to urinate. Her last BM was this morning, normal for her. Denies any recent fever, chills, sweats. When she was able in clinic her blood pressure systolically was in the 190s and her heart rates were in the 30s. She has been taking the Toprol and diltiazem for her hypertension as well as history of PSVT. Overall her appetite has been normal. She is an insulin-dependent diabetic 160 units of Tresiba, NovoLog and Trulicity. States her last A1c less than 7. In ED upon arrival her BP was 198/69. Upon my evaluation it was 161/63. She remained hemodynamically stable. On monitor her heart rate is in the 70s however after EKG visualization she is experiencing bigeminy with RR interval ventricular rate of 37bpm. She is currently asymptomatic. In ED lab work revealed relatively unremarkable CBC, CMP, troponin WNL, proBNP 675. Chest x-ray negative for acute cardiopulmonary abnormality. She was recommended for inpatient observation secondary to bradycardia and hypertension. Admission Exam Per Admitting Provider Constitutional: WD/WN, morbidly obese, female, sitting up at bedside, vitals as above, NAD, pleasant, conversing easily Head: Normocephalic, Atraumatic Eyes: PERRL, conjunctivae normal, anicteric sclerae ENMT: external ear and nose normal, oropharynx normal Neck: trachea midline, no thyromegaly normal visual inspection Respiratory: normal respiratory effort, lungs clear to auscultation, no wheeze, rales, rhonchi. Normal insp/exp effort, no accessory muscle use Cardiovascular: Bradycardic rate with ectopy, regular rhythm, no murmur, bilateral severe lymphedema with bilateral compressive dressings in place. Vessels: no JVD or carotid bruit Chest: normal inspection of chest Abdomen: Protuberant abdomen secondary to obesity, firm, nontender, no hepatosplenomegaly , normal active bowel sounds throughout Musculoskeletal: no cyanosis or clubbing, extremities motor strength 5/5 Skin: no rashes, warm and dry normal turgor Neurologic: PERRL, EOMI, accommodation nl, no face palsy, no dysarthria CN's II-XI intact bilaterally and moves all extremities Psychiatric: A+Ox3, euthymic affect Lymphatic: no cervical or axillary lymphadenopathy : deferred Principal Diagnosis HTN (hypertension) Type 2 diabetes mellitus, with long-term current use of insulin with Venous stasis ulcer transient ischemic attack (TIA) Premature atrial contraction Bradycardia is ruled out Discharge Exam Constitutional + obese and comfortable Eyes PERRL, conjunctivae normal, anicteric sclerae EOM intact bilaterally ENMT external ear and nose normal, oropharynx normal Neck normal visual inspection Respiratory normal respiratory effort, lungs clear to auscultation Cardiovascular Rate/Rhythm: regular rate Gastrointestinal (Abdomen) normal bowel sounds, soft, nontender, no hepatosplenomegaly Musculoskeletal Head/Neck/Chest: normocephalic Extremities: + lower extremity abnormal to inspection (bilateral legs in tight stockings) Neurologic PERRL, EOMI, accommodation nl, no face palsy, no dysarthria CN's II-XI intact bilaterally Psychiatric A+Ox3, euthymic affect Discharge Data Allergies Allergy/AdvReac Type Severity Reaction Status Date / Time fentanyl Allergy Severe Anaphylaxis Verified 08/07/19 10:30 Quinolones Allergy Intermediate CIPRO-HIVES Verified 08/07/19 10:30 latex Allergy Mild rash, and Verified 08/07/19 10:30 blisters black pepper Allergy Unknown Verified 08/07/19 15:10 adhesive AdvReac Unknown rash Verified 08/07/19 10:30 codeine AdvReac Unknown hallucinati Verified 08/07/19 10:30 ons metformin AdvReac Unknown gi upset Verified 08/07/19 15:10 sitagliptin AdvReac Unknown GI SYMPTOMS Verified 08/07/19 10:30 Consultations 08/07/19 12:07 ED Decision to Admit Stat 08/07/19 13:17 Consult Cardiology Routine 08/07/19 16:44 Consult Neurology Routine 08/08/19 08:00 Consult Neurology Routine Ordered Studies 08/07/19 16:02 CT head/brain wo con Stat 08/07/19 16:44 MR brain wo con Routine Hospital Course (1) HTN (hypertension): -as per admission history and physical "This is a 69-year-old female who has significant PMH of insulin-dependent T2DM, HTN, HLD, COPD, history of PSVT, pituitary macroadenoma status post resection, hypothyroidism, history of breast cancer status post bilateral mastectomy, bilateral lymphedema, history of tobacco abuse, left lower extremity wound who presents to ED at the recommendation of wound clinic secondary to hypertension and bradycardia. SBP in ED initially 198/69, now 161/63 without antihypertensive HR in 30s-40s, asymptomatic bigeminy" -patient's blood pressure was brought down with prn hydralazine and currently on increased lisinopril -discharge on lisinopril 40 mg daily for hypertension -patient should have sleep study as coordinated by primary care doctor to rule out obstructive sleep apnea as contribution to hypertension Transient ischemic attack (TIA) -At around 3:50 PM she complained numbness involving the right side face and right upper extremity and that happened while she was standing and felt dizzy. Did not have any other new symptoms and her blood pressure was not high at that time.she was taken to the ICU and stroke alert was called . She was evaluated by tele neurologist from [facility] and it was decided that she is not a candidate for TPA and by the time her numbness was improving and she did not have any other focal neuro deficit and her CT of the head remained unremarkable. She was advised to have Plavix on top of aspirin -Brain MRI: No acute intracranial abnormality -patient evaluated by Neurology Dr. Leyva on 08/08/2019 and he recommended to continue dual antiplatelets aspirin 81 mg daily and clopidogrel 75 mg daily for 21 days, then aspirin 81 mg daily alone for possible TIA (transient ischemic attack) -initially, hospitalist, prescribed atorvastatin 40 mg daily to replace home dose pravastatin 20 mg daily in context of stroke prevention, but patient reported that she cannot take the higher dose statin. Patient may discuss with neurologist as outpatient upcoming appointments 08/11/2019 8:00 AM Provider Vishal Leyva DO Department Neurology [facility] 08/14/2019 11:10 AM Provider Kalen Gonzalez DO Department [facility] 08/17/2019 8:15 AM Provider Geronimo Fowler MD Department Otolaryngology/Head & Neck/Facial Plastic Surgery 09/01/2019 8:10 AM Provider Kalen Gonzalez DO Department [facility] 09/16/2019 11:00 AM Provider Yady Lucia MD Department Hematology/Oncology [facility] 09/30/2019 11:30 AM Provider Josseline Suárez MD Department Dermatology [facility] 01/15/2020 9:30 AM Provider Damian Davey Jr., DO Department Cardiology, [facility] 03/16/2020 11:00 AM Provider [facility] ([facility] Bradycardia: Premature Atrial Contraction -as per admission history and physical on 08/07/2019 "Pt with bigemy on rhythm strip and EKG with vent rate of 30s" -as per cardiology 08/07/2019 evaluation the alleged bradycardia is "False reading due to frequent PVCs. Would continue outpatient metoprolol and diltiazem at this time." -as per cardiology 08/08/2019 evaluation "Blood pressure is relatively better controlled. On the telemetry she has a sinus rhythm with frequent premature atrial contractions which is not new for her. She has a history of frequent PACs. I do not believe any additional cardiac testing is indicated at this time." (3) Dyslipidemia: statin therapy (4) Type 2 diabetes mellitus, with long-term current use of insulin: Type 2 diabetes mellitus, with long-term current use of insulin with Venous stasis ulcer last A1C 6.2 07/2019 continue tresiba, trtariqity, home dose insulin as outpatient (5) Venous stasis ulcer: pt follows Dr. Patino and wound clinic current tx is Cutimed Sorbact swab and plain Aquacel with 2 layer Coban wrap (6) Lymphedema: pt with b/l lymphedema continue lasix daily LLE wound - patient should follow up with usual outpatient wound care clinic patient should have sleep study as coordinated by primary care doctor to rule out obstructive sleep apnea as contribution to hypertension (7) Hypothyroidism: TSH 1.67 Continue levothyroxine (8) COPD (chronic obstructive pulmonary disease): no active exacerbation prn albuterol (9) DVT prophylaxis: SQ Heparin was given while in the hospital Discharge Diagnosis HTN (hypertension) Type 2 diabetes mellitus, with long-term current use of insulin with Venous stasis ulcer transient ischemic attack (TIA) Premature atrial contraction Bradycardia is ruled out Total Time Total Time Spent Total Time Spent (In Minutes): 40 minutes Total Time Includes: Examination of the Patient, Discharge Planning, Medication Reconciliation and Communication With Other Providers Discharge Plan Discharge Items Patient Disposition: Home - Self-Care Reason For Visit: WEAKNESS,BRADYCARDIA,HTN Discharge Diagnosis: HTN (hypertension) Type 2 diabetes mellitus, with long-term current use of insulin with Venous stasis ulcer transient ischemic attack (TIA) Premature atrial contraction Bradycardia is ruled out Condition on Discharge: Good Activity: Per Instructions section Non-emergency contact: Primary Care Provider and Specialist Call non-emergency contact if: you have any medication questions Follow-up/Referrals: Kalen Gonzalez DO [Primary Care Provider] - ([facility] appointments will call you to arrange F/U appointment with Dr. Gonzalez. ) Diet: Carb Consistent or DM2 and Heart Healthy Addtl Attending Provider Instructions: discharge medications sent electronically to [facility] [place] [address] lisinopril 40 mg daily for hypertension initially, hospitalist, prescribed atorvastatin 40 mg daily to replace home dose pravastatin 20 mg daily in context of stroke prevention, but patient reported that she cannot take the higher dose statin. Patient may discuss with neurologist as outpatient aspirin 81 mg daily and clopidogrel 75 mg daily for 21 days, then aspirin 81 mg daily alone for possible TIA (transient ischemic attack) patient should follow up with usual outpatient wound care clinic patient should have sleep study as coordinated by primary care doctor to rule out obstructive sleep apnea as contribution to hypertension upcoming appointments 08/11/2019 8:00 AM Provider Vishal Leyva DO Department Neurology [facility] 08/14/2019 11:10 AM Provider Kalen Gonzalez DO Department [facility] 08/17/2019 8:15 AM Provider Geronimo Fowler MD Department Otolaryngology/Head & Neck/Facial Plastic Surgery 09/01/2019 8:10 AM Provider Kalen Gonzalez DO Department [facility] 09/16/2019 11:00 AM Provider Yady Lucia MD Department Hematology/Oncology [facility] 09/30/2019 11:30 AM Provider Josseline Suárez MD Department Dermatology [facility] 01/15/2020 9:30 AM Provider Damian Davey Jr., DO Department Cardiology, [facility] 03/16/2020 11:00 AM Provider Sean Gaines MD Department Neurosurgery, [facility] [employer] Provider Instructions: Risk Factors for Stroke: You can reduce your chances of stroke by working with your medical provider to adopt a healthy lifestyle. Some specific ways to lower your chance of stroke are: * If you are a smoker, now is the time to stop smoking cigarettes * If you are diabetic, improve the control of your blood sugars * Avoid excessive amounts of alcohol * Control high blood pressure * Lose weight if you are overweight * Be sure to lead an active lifestyle * Eat a healthy diet low in salt, cholesterol and fat You should know about other risk factors for stroke that you are unable to control. These include: * Age 55 years or older * Male gender * Certain racial groups: , or / * Family History of Stroke, Mini stroke or Heart Attack * Sickle Cell Disease Follow Up: It is important for you to keep your follow up appointments with your medical provider. Who to Call and When: Medical Emergencies: Call 911 immediately if you experience any of the following warning signs and symptoms of Stroke: * Sudden numbness or weakness of the face, arm or leg, especially on one side of the body * Sudden confusion, trouble speaking or understanding * Sudden trouble seeing in one or both eyes * Sudden trouble walking, dizziness, loss of balance or coordination * Sudden severe headache with no cause Do not delay calling 911 if you experience any warning signs or symptoms of a stroke. Delay in seeking medical attention may affect what treatments can be given to you. . Pending Studies at Discharge: No Stand-Alone Forms: My [facility], Smoking Cessation Medications and DC Order Prescriptions: New lisinopril [Zestril] 40 mg Tablet 40 mg PO QAM 30 Days Qty: 30 RF: 0 clopidogrel 75 mg Tablet 75 mg PO QAM 21 Days Qty: 21 RF: 0 aspirin 81 mg Tablet,Delayed Release (Dr/Ec) 81 mg PO QAM 30 Days Qty: 30 RF: 1 atorvastatin 40 mg Tablet 40 mg PO QAM 30 Days Qty: 30 RF: 0 Continued furosemide [Lasix] 20 mg tablet 20 mg PO QAM RF: 0 ipratropium-albuterol 0.5 mg-3 mg(2.5 mg base)/3 mL solution for nebulization 3 ml INH Q4H PRN (Reason: shortness of breath or wheezing) RF: 0 levothyroxine 100 mcg capsule 100 mcg PO QAM RF: 0 albuterol sulfate 90 mcg/actuation HFA aerosol inhaler 2 puffs INH Q4H PRN (Reason: Shortness Of Breath) RF: 0 aspirin [Aspir-81] 81 mg tablet,delayed release (DR/EC) 81 mg PO QAM RF: 0 diltiazem HCl [Tiazac] 120 mg capsule,extended release 24 hr 120 mg PO QAM RF: 0 dulaglutide [Trulicity] 0.75 mg/0.5 mL pen injector 1 dose SQ KAPLAN RF: 0 Tresiba FlexTouch U-100 100 unit/mL (3 mL) insulin pen 160 units SQ QAM RF: 0 Novolog U-100 Insulin aspart 100 unit/mL solution 0 units SQ AC RF: 0 topiramate [Topamax] 50 mg tablet 50 mg PO QAM RF: 0 pravastatin 20 mg tablet 20 mg PO QAM RF: 0 naproxen sodium [Aleve] 220 mg Tablet 220 mg PO Q12H PRN (Reason: Pain) RF: 0 metoprolol succinate 25 mg tablet extended release 24 hr 25 mg PO QAM RF: 0 vitamin E 400 unit Capsule 400 unit PO QAM RF: 0 Vitamin D3 4,000 unit Capsule 4,000 unit PO Q2D RF: 0 potassium gluconate 600 mg (99 mg) Tablet 99 mg PO QAM RF: 0 Discontinued lisinopril 20 mg tablet 20 mg PO QAM RF: 0 Discharge Orders: Discharge Order (Routine); Ordered 08/08/19 Ordered By: Aly Tsang Admission Data Admit Date/Time: 08/07/19 12:24 Attending Provider: Aly Tsang Admit Provider: Savita Kaye Primary Care Provider: Kalen Gonzalez Other Providers: Damian Davey ; Savita Kaye ; Vishal Leyva Other Interventions: Discharge Summary Assessment (RN) Last Done: 08/08/19 14:28
[2019-08-09] MEDS ORDERED: ATORVASTATIN 40 MG TAB PO SCH (09:00)
--- NOTE | 2019-08-10 12:25 | Electrocardiogram Report ---
Test Reason : Blood Pressure : / mmHG Vent. Rate : 080 BPM Atrial Rate : 080 BPM P-R Int : 160 ms QRS Dur : 078 ms QT Int : 374 ms P-R-T Axes : 074 070 072 degrees QTc Int : 431 ms Sinus rhythm with frequent Premature ventricular complexes in a pattern of bigeminy Low voltage QRS Cannot rule out Anterior infarct , age undetermined Abnormal ECG When compared with ECG of 07-AUG-2019 15:58, No significant change was found Confirmed by Dion Hill ([id number]) on 08/10/2019 12:25:21 PM Referred By: REFERRED SELF Confirmed By:Dion Hill
== END 2019-08-08 15:27 | disposition home or self-care (01) ==
LOC: ED 09:29 → 2E 09:29 → SUATTDRO 12:24 → 2E 14:02 → 2S 17:18

== ENCOUNTER 2019-08-10 09:02 | Inpatient (IN) ==
--- NOTE | 2019-08-10 10:01 | CT Scan Report ---
CT head/brain wo con CT DOSE: 537.48 mGy.cm HISTORY: Mental status change Hypertension TECHNIQUE: Multiaxial CT images of the head were performed without the use of intravenous contrast. A dose lowering technique was utilized adhering to the principles of ALARA. Comparison: 08/07/2019 Findings: Unchanged mucus retention cyst left maxillary sinus The calvarium and skull base are intact . The ventricles and sulci are within normal limits. There is no mass, hematoma, midline shift, or ac ambler infarct. Impression: No acute intracranial abnormality. No change from the prior study. ACT 112: Negative or not required by law. The above report was generated using voice recognition software. It may contain grammatical, syntax or spelling errors. Electronically signed by: Power Gabriel M.D. 08/10/2019 10:00 AM
[2019-08-10] MEDS ORDERED: METOCLOPRAMIDE HCL INJ 5 MG/ML 2 ML VIAL IV STA (10:02)
[2019-08-10] MEDS ORDERED: DiphenhydrAMINE HCL 50 MG/ML VIAL IV STA (10:02)
[2019-08-10] MEDS ORDERED: SODIUM CHLORIDE 0.9% 1000ML 500 ML IV ONE (10:02)
[2019-08-10] MEDS ORDERED: ACETAMINOPHEN 325 MG TAB PO STA (10:03)
--- NOTE | 2019-08-10 10:21 | XRay Report ---
XR chest 1V portable CLINICAL HISTORY: 69 years-old Female presenting with Hypertension, chest pain, headache. TECHNIQUE: Portable upright AP view of the chest was obtained. COMPARISON: 08/07/2019. FINDINGS: Atherosclerosis of the aortic arch. Cardiac silhouette normal in size. Mild pulmonary vascular promin ence similar to prior. Mild interstitial prominence also similar to prior. Minimal basilar opacities. Minimal added density of the lung bases. No pleural effusion or pneumothorax. Osseous structures nor mal. IMPRESSION: 1. Mild volume overload and congestive change. Minimal added density of the lung bases could indicat e developing pulmonary edema versus due to overlapping soft tissue and portable technique. Consider f ollow-up. 2. Minimal bibasilar atelectasis suspected, unchanged from prior. ACT 112: Negative or not required by law. Electronically signed by: Willie Madera M.D. 08/10/2019 10:20 AM
[2019-08-10 11:02] LABS: Appearance Urine Cloudy (Clear); Bacteria Urine Automated Negative (Negative); Bilirubin Urine Negative (Negative); Blood Urine Negative (Negative); Color Urine Yellow; Epithelial Cell Urine Auto >30 /lpf (0-5); Glucose Urine UA Negative (Negative); Ketones Urine Negative (Negative); Leukocyte Esterase Urine 2+ (Negative); Nitrite Urine Negative (Negative); RBC Urine Automated 0-4 /hpf (0-4); Specific Gravity Urine 1.023 (1.000-1.030); Urobilinogen Urine Negative (Negative); WBC Urine Automated >30 /hpf (0-5); pH Urine 7.5 (4.5-7.5)
[2019-08-10 11:06] LABS: Protein Urine Trace (Negative)
[2019-08-10 11:12] LABS: Sulfosalicylic Acid Urine Positive (Negative)
[2019-08-10 11:50] LABS: Basophils # (auto) 0.02 K/uL (0-0.2); Basophils % (auto) 0.3 %; Eosinophils # (auto) 0.16 K/uL (0-0.5); Eosinophils % (auto) 2.2 %; Hemoglobin 13.5 g/dL (12.0-16.0); Immature Granulocytes # (auto) 0.01 K/uL (0.00-0.02); Immature Granulocytes % (auto) 0.1 %; Lymphocytes # (auto) 2.25 K/uL (1.2-3.4); Lymphocytes % (auto) 30.4 %; Mean Corpuscular Hemoglobin 28.4 pg (25-34); Mean Corpuscular Hgb Conc 31.4 g/dL (32-36); Mean Corpuscular Volume 90.5 fL (80-100); Mean Platelet Volume 11.5 fL (7.4-10.4); Monocytes # (auto) 0.49 K/uL (0.11-0.59); Monocytes % (auto) 6.6 %; Neutrophils # (auto) 4.46 K/uL (1.4-6.5); Neutrophils % (auto) 60.4 %; Platelet Count 235 K/uL (130-400); RDW Coefficient of Variation 14.4 % (11.5-14.5); RDW Standard Deviation 47.4 fL (36.4-46.3); Red Blood Count 4.75 M/uL (4.2-5.4); White Blood Count 7.39 K/uL (4.8-10.8)
[2019-08-10] MEDS ORDERED: NITROGLYCERIN SL 0.4 MG/TAB TAB SL STA (12:02)
[2019-08-10] MEDS ORDERED: NITROGLYCERIN SL 0.4 MG/TAB TAB SL PRN (12:02)
[2019-08-10 12:12] LABS: Alanine Aminotransferase 32 U/L (12-78); Albumin Level 3.5 gm/dl (3.4-5.0); Aspartate Aminotransferase 21 U/L (15-37); BUN Creatinine Ratio 20.1 (10-20); Blood Urea Nitrogen 20 mg/dl (7-18); Calcium 9.4 mg/dl (8.5-10.1); Carbon Dioxide 27 mmol/L (21-32); Chloride 113 mmol/L (98-107); Est GFR (Non-African American) 60.4; Glucose 70 mg/dl (70-99); Magnesium 2.6 mg/dl (1.8-2.4); Potassium 4.3 mmol/L (3.5-5.1); Sodium 143 mmol/L (136-145)
[2019-08-10 12:17] LABS: Albumin Globulin Ratio 0.8 (0.9-2); Alkaline Phosphatase 104 U/L (45-117); Bilirubin,Total 0.3 mg/dl (0.2-1); Globulin 4.2 gm/dl (2.5-4.0); Total Protein 7.7 gm/dl (6.4-8.2); Troponin I < 0.015 ng/ml (0-0.045)
--- NOTE | 2019-08-10 14:27 | History & Physical Report ---
Date of Service August 10, 2019 Assessment & Plan (1) Atypical chest pain: (2) HTN (hypertension): This is a 69-year-old female who has significant PMH of insulin-dependent T2DM, HTN, HLD, COPD, history of PSVT, pituitary macroadenoma status post resection, hypothyroidism, history of breast cancer status post bilateral mastectomy, bilateral lymphedema, history of tobacco abuse, left lower extremity wound who presents to ED at the recommendation of wound clinic secondary to CP, elevated b lood pressure and LONG. Recent admission for similar sx on 08/06 and discharge on 08/07. At that time she had increase in her lisinopril to 40 daily along with addition of plavix 75mg daily due to concern for possible TIA Returns today with CP, uncontrolled HTN and LONG. Sx improved in ED with SL nitro which also improved blood pressure. Admit to PCU consult cardiology - appreciate input in blood pressure management cycle troponin, repeat ecg obtain echocardiogram Nitropaste 1in q6h continue lisinopril, diltiazem, metoprolol and lasix - per Dr. Davey consultation from previous admission there was consideration to D/C diltiazem in favor or amlodipine for great HTN effects (3) TIA (transient ischemic attack): Occurred during most recent admission TIA versus hypertensive urgency Was started on ASA and Plavix regimen x21 days (until 08/27) , then plavix only Continue high intensity statin (4) Type 2 diabetes mellitus, with long-term current use of insulin: last A1C 6.2 07/2019 continue tresiba, trulicity, novolog Pt to bring in tresiba, used during previous admission but will reduce dose by 20% novolog SS per protocol monitor (5) Dyslipidemia: continue statin (6) Lymphedema: continue lasix pt with b/l lymphedema (7) Venous stasis ulcer: pt follows Dr. Patino and wound clinic current tx is Cutimed Sorbact swab and plain Aquacel with 2 layer Coban wrap and this will be changed twice a week continue wound care - dressing changed today in clinic (8) Hypothyroidism: continue statin (9) COPD (chronic obstructive pulmonary disease): no acute exac (10) DVT prophylaxis: SQ Heparin Disposition: admit to PCU Follow up: PCP Dr. Gonzalez upon discharge Pt was seen and examined in collaboration with Dr. Vargas, please see addendum History of Present Illness Chief Complaint: Chest pain, elevated BP, LONG since 2 a.m. Primary Care Provider: Kalen Gonzalez, This is a 69-year-old female who has significant PMH of insulin-dependent T2DM, HTN, HLD, COPD, history of PSVT, pituitary macroadenoma status post resection, hypothyroidism, history of breast cancer status post bilateral mastectomy, bilateral lymphedema, history of tobacco abuse, left lower extremity wound who presents to ED at the recommendation of wound clinic secondary to CP, elevated blood pressure and LONG. Patient recently admitted on 08/06 to 08/07 secondary to hypotension and bradycardia. During hospitalization she was seen and evaluated by cardiology who felt bradycardia was fall secondary to frequent PVCs. She was continued on her home Toprol and diltiazem and her lisinopril was increased from 20 mg to 40 mg. Subsequently on day of admission she became stroke alert secondary to right-sided facial numbness and right arm numbness. She underwent tele-stroke valuation and TPA was not recommended secondary to improvement of symptoms. It was felt symptoms possibly secondary to TIA versus hypertensive urgency. She was seen and evaluated by neurology who recommended ASA and Plavix x21 days and then Plavix indefinitely. She was discharged home on Saturday and was doing well on Saturday. This morning around 2 AM she woke up with a severe headache and chest pressure. She describes the pressure as if something was sitting on her chest. She continually checked her blood pressure and noted that it zack from the 150 systolically to the 180 systolically. With rise in her blood pressure her headache and chest pain became worse. She was seen and evaluated in my clinic today for compression dressing changes. In wound clinic her BP was 152/72. Because of chest pain and headache she was encouraged to see either PCP or ED. Currently after tx in ED her CP is 4/10, substernal, still a pressure, LONG is improving and mild. She denies f/c/s, dizziness, SOB at rest, palpitations, n/v/d, abdominal pain. She has had a 20lb weight gain in 6 months and complains of increased abd girth and bloating. Further c/o increased lower ext swelling. Not always compliant with lasix depending on her daily schedule. Otherwise she has been compliant with her medications. Sx improved in ED with SL nitro which also improved BP. She also received migraine cocktail with IV benadryl, reglan. In ED she remained hemodynamically stable. She was hypertensive with fl uctuating blood pressures. CBC, CMP relatively unremarkable. Her BUN was 20 creatinine 1.97, initial troponin negative, mag 2.6, proBNP pending. Urinalysis obtain which appears contaminated. She is asymptomatic from a urine standpoint. Chest x-ray revealed mild volume overload and congestive change. Minimal added density in left lung base could be consistent with pulmonary edema versus overlapping soft tissue. EKG revealed normal sinus rhythm with bigeminy and no ST or T wave changes. Allergies Allergy/AdvReac Type Severity Reaction Status Date / Time fentanyl Allergy Severe Anaphylaxis Verified 08/10/19 10:17 Quinolones Allergy Intermediate CIPRO-HIVES Verified 08/10/19 10:17 latex Allergy Mild rash, and Verified 08/10/19 10:17 blisters black pepper Allergy Unknown Verified 08/10/19 10:17 adhesive AdvReac Unknown rash Verified 08/10/19 10:17 codeine AdvReac Unknown hallucinati Verified 08/10/19 10:17 ons metformin AdvReac Unknown gi upset Verified 08/10/19 10:17 sitagliptin AdvReac Unknown GI SYMPTOMS Verified 08/10/19 10:17 Home Medications Home Medications Medication Instructions Recorded Confirmed Type albuterol sulfate 90 mcg/actuation 2 puffs INH Q4H PRN gm 07/29/18 08/10/19 History aerosol inhaler aspirin 81 mg tablet,delayed 81 mg PO QAM 07/29/18 08/10/19 History release diltiazem HCl 120 mg capsule,24 120 mg PO QAM 07/29/18 08/10/19 History hr,extended release dulaglutide 0.75 mg/0.5 mL 1 dose SQ KAPLAN ml 07/29/18 08/10/19 History subcutaneous pen injector furosemide 20 mg tablet 20 mg PO QAM 07/29/18 08/10/19 History ipratropium 0.5 mg-albuterol 3 mg 3 ml INH Q4H PRN ml 07/29/18 08/10/19 History (2.5 mg base)/3 mL nebulization soln levothyroxine 100 mcg capsule 100 mcg PO QAM 07/29/18 08/10/19 History insulin aspart U-100 100 unit/mL 0 units SQ AC ml 03/27/19 08/10/19 History subcutaneous solution insulin degludec 100 unit/mL (3 160 units SQ QAM ml 03/27/19 08/10/19 History mL) subcutaneous pen pravastatin 20 mg tablet 20 mg PO QAM 03/27/19 08/10/19 History topiramate 50 mg tablet 50 mg PO QAM tab 03/27/19 08/10/19 History Vitamin D3 4,000 unit PO Q2D 08/07/19 08/10/19 History metoprolol succinate 25 mg PO QAM 08/07/19 08/10/19 History naproxen sodium [Aleve] 220 mg PO Q12H PRN 08/07/19 08/10/19 History potassium gluconate 99 mg PO QAM 08/07/19 08/10/19 History vitamin E 400 unit PO QAM 08/07/19 08/10/19 History aspirin 81 mg PO QAM 30 Days #30 tab 08/08/19 08/10/19 Rx atorvastatin 40 mg PO QAM 30 Days #30 tab 08/08/19 08/10/19 Rx clopidogrel 75 mg PO QAM 21 Days #21 tab 08/08/19 08/10/19 Rx lisinopril [Zestril] 40 mg PO QAM 30 Days #30 tab 08/08/19 08/10/19 Rx Past Med/Surg History Medical History Anxiety (Chronic) Arthritis (Chronic) Asthma (Chronic) COPD (chronic obstructive pulmonary disease) (Chronic) Diabetes 1.5, managed as type 2 (Chronic) H/O malignant neoplasm of breast (Resolved) Hyperlipidemia (Chronic) Hypertension (Chronic) Hypothyroidism (Chronic) Irritable bowel disease (Chronic) Lymphedema (Chronic) Partial thickness burn of back Pituitary macroadenoma (Chronic) PSVT (paroxysmal supraventricular tachycardia) (Chronic) Surgical History H/O bilateral mastectomy (Resolved) History of carpal tunnel release S/P cholecystectomy (Resolved) S/P oophorectomy (Resolved) S/P tubal ligation (Resolved) Family History Other Cancer Diabetes Heart disease Hypertension Social History Preferred Language: Telugu Communication Ability: Effective Visual Impairment: No Limitations Hearing Ability: Normal Gut Snatcher Required: No Beliefs That Will Affect Care: None marital status: Current Living Situation: Spouse current occupational status: retired Other Information That Helps Us Care for You: No Feels Safe at Home: Yes Safety Concerns: Feels Safe At This Time Smoking Status: Never smoker packs per day: 2 ; Hx Alcohol Use: No Hx Substance Use: No Review of Systems Review of Systems: All systems reviewed & are unremarkable except as noted in HPI & below Physical Exam Physical Exam: Constitutional: WD/WN, morbidly obese, female, sitting up at bedside, vitals as above, NAD, pleasant, conversing easily Head: Normocephalic, Atraumatic Eyes: PERRL, conjunctivae normal, anicteric sclerae ENMT: external ear and nose normal, oropharynx normal Neck: trachea midline, no thyromegaly normal visual inspection Respiratory: normal respiratory effort, lungs clear to auscultation, no wheeze, rales, rhonchi. Normal insp/exp effort, no accessory muscle use Cardiovascular: Bradycardic rate with ectopy, regular rhythm, no murmur, bilateral severe lymphedema with bilateral compressive dressings in place. B/L +1 pedal pulse Vessels: no JVD or carotid bruit Chest: normal inspection of chest, chest pain not reproducible Abdomen: Protuberant abdomen secondary to obesity, firm, nontender, no hepatosplenomegaly , normal active bowel sounds throughout Musculoskeletal: no cyanosis or clubbing,upper ext 5/5, decreased ROM to b/l lower ext due to extensive lymphedema Skin: no rashes, warm and dry normal turgor Neurologic: PERRL, EOMI, accommodation nl, no face palsy, no dysarthria CN's II-XI intact bilaterally and moves all extremities Psychiatric: A+Ox3, euthymic affect Lymphatic: no cervical or axillary lymphadenopathy : deferred Results & Data Vital Signs (Past 12 Hours) Vital Signs Temp Pulse Resp BP Pulse Ox 08/10/19 14:02 81 23 147/96 H 08/10/19 14:00 83 22 08/10/19 13:31 77 21 162/63 H 08/10/19 13:30 79 23 08/10/19 13:02 82 15 08/10/19 13:01 19 166/77 H 08/10/19 13:00 83 15 08/10/19 12:32 90 16 155/67 H 08/10/19 12:31 91 H 18 08/10/19 12:30 86 24 148/59 H 08/10/19 12:27 87 25 H 168/89 H 08/10/19 12:26 85 13 08/10/19 12:02 85 17 163/91 H 08/10/19 12:00 81 24 08/10/19 11:40 76 19 97 08/10/19 11:39 75 25 H 176/73 H 96 08/10/19 11:30 73 20 95 08/10/19 11:00 77 24 96 08/10/19 10:40 77 22 98 08/10/19 10:36 88 22 98 08/10/19 09:32 36.4 C L 38 L 18 180/69 H 99 Laboratory Results Short CBC 08/10/19 08/10/19 08/10/19 Range/Units 10:15 11:32 11:32 WBC 7.39 (4.8-10.8) K/uL RBC 4.75 (4.2-5.4) M/uL Hgb 13.5 (12.0-16.0) g/dL Hct 43.0 (37-47) % MCV 90.5 (80-100) fL MCH 28.4 (25-34) pg MCHC 31.4 L (32-36) g/dL RDW Std Deviation 47.4 H (36.4-46.3) fL RDW Coeff of Mitch 14.4 (11.5-14.5) % Plt Count 235 (130-400) K/uL MPV 11.5 H (7.4-10.4) fL Immature Gran % (Auto) 0.1 % Neut % (Auto) 60.4 % Lymph % (Auto) 30.4 % [place] % (Auto) 6.6 % Eos % (Auto) 2.2 % Baso % (Auto) 0.3 % Immature Gran # (Auto) 0.01 (0.00-0.02) K/uL Neut # (Auto) 4.46 (1.4-6.5) K/uL Lymph # (Auto) 2.25 (1.2-3.4) K/uL [place] # (Auto) 0.49 (0.11-0.59) K/uL Eos # (Auto) 0.16 (0-0.5) K/uL Baso # (Auto) 0.02 (0-0.2) K/uL Sodium 143 (136-145) mmol/L Potassium 4.3 (3.5-5.1) mmol/L Chloride 113 H (98-107) mmol/L Carbon Dioxide 27 (21-32) mmol/L Anion Gap 3.0 (3-11) BUN 20 H (7-18) mg/dl Creatinine 0.97 (0.6-1.2) mg/dl Est Cr Clr Drug Dosing 74.0 ml/min Est GFR ( Amer) 70.0 Est GFR (Non-Af Amer) 60.4 BUN/Creatinine Ratio 20.1 H (10-20) Glucose 70 (70-99) mg/dl Calcium 9.4 (8.5-10.1) mg/dl Magnesium 2.6 H (1.8-2.4) mg/dl Total Bilirubin 0.3 (0.2-1) mg/dl AST 21 (15-37) U/L ALT 32 (12-78) U/L Alkaline Phosphatase 104 (45-117) U/L Troponin I < 0.015 (0-0.045) ng/ml Total Protein 7.7 (6.4-8.2) gm/dl Albumin 3.5 (3.4-5.0) gm/dl Globulin 4.2 H (2.5-4.0) gm/dl Albumin/Globulin Ratio 0.8 L (0.9-2) Urine Color Yellow Urine Appearance Cloudy A (Clear) Urine pH 7.5 (4.5-7.5) Ur Specific [place] 1.023 (1.000-1.030) Urine Protein Trace H (Negative) Urine Glucose (UA) Negative (Negative) Urine Ketones Negative (Negative) Urine Blood Negative (Negative) Urine Nitrite Negative (Negative) Urine Bilirubin Negative (Negative) Urine Urobilinogen Negative (Negative) Ur Leukocyte Esterase 2+ H (Negative) Urine WBC (Auto) >30 H (0-5) /hpf Urine RBC (Auto) 0-4 (0-4) /hpf U Hyaline Cast (Auto) 5-10 H (0-5) /lpf U Epithel Cells (Auto) >30 H (0-5) /lpf Urine Bacteria (Auto) Negative (Negative) BMP 08/10/19 11:32 Sodium 143 Potassium 4.3 Chloride 113 H Carbon Dioxide 27 BUN 20 H Creatinine 0.97 Glucose 70 Calcium 9.4 Cardiac Enzymes 08/10/19 Range/Units 11:32 Troponin I < 0.015 (0-0.045) ng/ml Liver Function 08/10/19 Range/Units 11:32 Total Bilirubin 0.3 (0.2-1) mg/dl AST 21 (15-37) U/L ALT 32 (12-78) U/L Alkaline Phosphatase 104 (45-117) U/L Albumin 3.5 (3.4-5.0) gm/dl Urine 08/10/19 Range/Units 10:15 Urine Color Yellow Urine Appearance Cloudy A (Clear) Urine pH 7.5 (4.5-7.5) Ur Specific [place] 1.023 (1.000-1.030) Urine Protein Trace H (Negative) Urine Glucose (UA) Negative (Negative) Diagnostic Findings CXR: IMPRESSION: 1. Mild volume overload and congestive change. Minimal added density of the lung bases could indicate developing pulmonary edema versus due to overlapping soft tissue and portable technique. Consider follow-up. 2. Minimal bibasilar atelectasis suspected, unchanged from prior. Head CT: Impression: No acute intracranial abnormality. No change from the prior study. Medications Administered Discontinued Medications Acetaminophen (Tylenol) 650 mg PO NOW STA Stop: 08/10/19 10:04 Last Admin: 08/10/19 11:43 Dose: 650 mg Documented by: [id number] Diphenhydramine HCl (Benadryl) 12.5 mg IV NOW STA Stop: 08/10/19 10:03 Last Admin: 08/10/19 11:46 Dose: 12.5 mg Documented by: [id number] Sodium Chloride (Nss 1000ml) 500 mls @ 999 mls/hr IV .Q31M ONE Stop: 08/10/19 10:32 Last Infusion: 03/09/20 12:19 Dose: 0 mls/hr Documented by: [id number] Admin: 08/10/19 11:45 Dose: 999 mls/hr Documented by: [id number] Metoclopramide HCl (Reglan) 10 mg IV NOW STA Stop: 08/10/19 10:03 Last Admin: 08/10/19 11:47 Dose: 10 mg Documented by: [id number] Nitroglycerin (Nitrostat) 0.4 mg SL NOW STA Stop: 08/10/19 12:03 Last Admin: 08/10/19 12:27 Dose: 0.4 mg Documented by: [id number] ECG Rate (beats per minute): 80 Rhythm: normal sinus Findings: + PVC (frequent, bigeminy ) Code Status & VTE Plan Code Status Full Code VTE Prophylaxis Plan VTE Prophylaxis will be ordered: Yes Supervising Physician Co-Signing Physician Notes Attending addendum The patient was seen and examined in the emergency room She has been complaining of headache with chest pressure and noted to have very high blood pressure at home and at the wound clinic Her blood pressure was noted to be as high as systolic 180s at presentation She was given Nitropaste and blood pressure is coming down During examination she complains of headache but denied any other symptoms On examination Lying in bed comfortably Stable with a high blood pressure of 149/52 Chestclear to auscultate bilaterally Heart-S1-S2, regular Abdomen-benign. Nontender, no organomegaly, bowel sounds present [id number]+ edema bilaterally with chronic lymphedema and left leg ulcer SERVICE DIRECTOR, awake and oriented x3 Admission labs and imaging studies reviewed Presented with hypertensive urgency with bradycardia and bigeminy Recent TIA events in the hospital and has been on aspirin and Plavix No neuro symptoms during this presentation Agree with assessment and plan as outlined above by Rafael Kaye (1) Hypothyroidism Hypothyroidism type: unspecified Qualified Code(s): E03.9 - Hypothyroidism, unspecified (2) Venous stasis ulcer Laterality: left Non-pressure ulcer stage: limited to breakdown of skin Varicose vein presence: unspecified whether present Venous stasis ulcer site: calf Qualified Code(s): I83.022 - Varicose veins of left lower extremity with ulcer of calf; L97.221 - Non-pressure chronic ulcer of left calf limited to breakdown of skin (3) HTN (hypertension) Hypertension type: unspecified Qualified Code(s): I10 - Essential (primary) hypertension
[2019-08-10 15:00] LABS: NT Pro B Type Natriuretic Pept 626 pg/ml (0-900)
[2019-08-10] MEDS ORDERED: GLUCOSE 40% GEL 15 GM TUBE PO PRN (15:25)
[2019-08-10] MEDS ORDERED: GLUCAGON FOR INJ 1 MG VIAL SQ PRN (15:25)
[2019-08-10] MEDS ORDERED: ALBUT/IPRATROP 3MG/0.5MG NEB 3 ML VIAL NEB PRN (15:25)
[2019-08-10] MEDS ORDERED: GLUCOSE 10 TABS/TUBE PO PRN (15:25)
[2019-08-10] MEDS ORDERED: DEXTROSE 50% 50 ML SYRINGE IV PRN (15:25)
[2019-08-10] MEDS ORDERED: ALUMINUM/MAGNESIUM SUSP 30 ML UDC PO PRN (15:25)
[2019-08-10] MEDS ORDERED: CARBOHYDRATES FOR HYPOGLYCEMIA PO PRN (15:25)
[2019-08-10] MEDS ORDERED: ONDANSETRON INJ 2 MG/ML 2 ML VIAL IV PRN (15:25)
--- NOTE | 2019-08-10 15:44 | Electrocardiogram Report ---
Test Reason : Blood Pressure : / mmHG Vent. Rate : 080 BPM Atrial Rate : 080 BPM P-R Int : 192 ms QRS Dur : 080 ms QT Int : 404 ms P-R-T Axes : 058 032 034 degrees QTc Int : 465 ms Poor data quality, interpretation may be adversely affected Sinus rhythm with frequent Premature ventricular complexes in a pattern of bigeminy Possible Left atrial enlargement Anterior infarct (cited on or before 08-AUG-2019) Abnormal ECG When compared with ECG of 08-AUG-2019 09:17, (unconfirmed) No significant change was found Confirmed by Dion Hill ([id number]) on 08/10/2019 3:44:11 PM Referred By: Confirmed By:Dion Hill
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
[2019-08-10] MEDS ORDERED: LIDOCAINE/EPINEPHRINE 1% 20 ML VIAL INFIL ONE (17:54)
[2019-08-10] MEDS: INSULIN ASPART 100 UNITS/ML 3 ML PEN SC SCH ×2 (18:59→21:11)
[2019-08-10] MEDS: NITROGLYCERIN 2% OINTMENT 30GM TUBE EXT SCH (19:02)
--- NOTE | 2019-08-10 19:02 | Emergency Department Note ---
ED Visit Note Patient was admitted to the hospital. She sustained an injury while admitted. She was brought to the emergency department for repair as this was felt to be the safest option. Risks and benefits of performing primary wound closure versus no repair were discussed with the patient who verbalizes understanding. Verbal consent was obtained prior to performing the procedure. There is a 6 cm left lateral lower extremity laceration that is just distal to midway between the knee and left ankle. This does involve the epidermis, dermis and subcuta neous tissue. Patient has very thin and fragile skin at baseline with lymphedema. 8 cc of 1% buffered lidocaine with epinephrine was used to anesthetize the sick centimeter laceration. The wound was cleansed and prepped in the typical sterile fashion utilizing normal saline and Betadine. The wound was sterilely draped. Once proper anesthetization was established, the wound was further examined and demonstrated no evidence of bony involvement or foreign body. The wound was copiously irrigated with normal saline and Betadine. The wound was closed using 14 simple, 4-0 nylon sutures with the wound edges being well approximated but I did leave a small gap as the patient skin is quite thin and there was some drainage and she is on anticoagulants. Patient tolerated the procedure well. No complications were met. The wound was cleansed and dressed with a bulky. Patient was subsequently taken back to her room. I did also check her tetanus status and it was up-to-date. Please refer to further documentation regarding her stay. .
[2019-08-10] MEDS: HEPARIN SOD 5,000 UNIT/0.5 ML VIAL SQ SCH (21:12)
[2019-08-11] MEDS: NITROGLYCERIN 2% OINTMENT 30GM TUBE EXT SCH ×3 (00:56→12:45)
[2019-08-11] MEDS: ACETAMINOPHEN 325 MG TAB PO PRN (04:21)
[2019-08-11] MEDS: HEPARIN SOD 5,000 UNIT/0.5 ML VIAL SQ SCH ×3 (05:55→22:06)
[2019-08-11] MEDS: LEVOTHYROXINE SODIUM 100 MCG TABLET PO SCH (05:57)
[2019-08-11] MEDS ORDERED: PERFLUTREN LIPID MICROSPHERE (DEFINITY) IV ONE (07:06)
[2019-08-11] MEDS ORDERED: ACETAMINOPHEN 1,000 MG/100 ML VIAL IV STA (07:17)
[2019-08-11] MEDS: dilTIAZem ER 120 MG CAPCR PO SCH (07:42)
[2019-08-11] MEDS: ASPIRIN 81 MG ECTAB PO SCH (07:42)
[2019-08-11] MEDS: CLOPIDOGREL BISULFATE 75 MG TAB PO SCH (07:42)
[2019-08-11] MEDS: TOCOPHERYL, DL-ALPHA 400 UNITS CAP PO SCH (07:43)
[2019-08-11] MEDS: PRAVASTATIN SOD 20 MG TAB PO SCH (07:43)
[2019-08-11] MEDS: lisinopriL 40 MG TAB PO SCH (07:43)
[2019-08-11] MEDS: TOPIRAMATE 50 MG TAB PO SCH (07:43)
[2019-08-11] MEDS: FUROSEMIDE 20 MG TAB PO SCH (07:43)
[2019-08-11] MEDS: INSULIN DEGLUDEC 200 UNITS/ML PEN SQ SCH (07:44)
[2019-08-11] MEDS ORDERED: DiphenhydrAMINE HCL 50 MG/ML VIAL IV STA (07:49)
[2019-08-11 07:59] LABS: Basophils # (auto) 0.03 K/uL (0-0.2); Basophils % (auto) 0.4 %; Eosinophils # (auto) 0.16 K/uL (0-0.5); Eosinophils % (auto) 2.4 %; Hematocrit (blood only) 40.3 % (37-47); Hemoglobin 12.9 g/dL (12.0-16.0); Immature Granulocytes # (auto) 0.05 K/uL (0.00-0.02); Immature Granulocytes % (auto) 0.7 %; Lymphocytes # (auto) 1.27 K/uL (1.2-3.4); Lymphocytes % (auto) 18.7 %; Mean Corpuscular Hemoglobin 28.7 pg (25-34); Mean Corpuscular Volume 89.6 fL (80-100); Mean Platelet Volume 11.2 fL (7.4-10.4); Monocytes # (auto) 0.47 K/uL (0.11-0.59); Monocytes % (auto) 6.9 %; Neutrophils # (auto) 4.82 K/uL (1.4-6.5); Neutrophils % (auto) 70.9 %; Platelet Count 221 K/uL (130-400); RDW Coefficient of Variation 14.5 % (11.5-14.5); RDW Standard Deviation 47.2 fL (36.4-46.3)
[2019-08-11] MEDS ORDERED: PIPERACILL/TAZOBAC CONSULT ACTIVE PRN (08:14)
[2019-08-11] MEDS ORDERED: VANCOMYCIN CONSULT ACTIVE PRN (08:15)
[2019-08-11] MEDS ORDERED: PIPERACILLIN/TAZOBACTAM 3.375 GM in DEXTROSE 5% 100 ML IV SCH (08:15)
[2019-08-11 08:25] LABS: BUN Creatinine Ratio 23.6 (10-20); Calcium 8.9 mg/dl (8.5-10.1); Creatinine Clr Calc Pharmacy 86.4 ml/min; Est GFR (African American) 79.9; Est GFR (Non-African American) 68.9; Potassium 4.4 mmol/L (3.5-5.1)
[2019-08-11] MEDS: INSULIN ASPART 100 UNITS/ML 3 ML PEN SC SCH ×4 (08:54→21:01)
[2019-08-11] MEDS ORDERED: METOPROLOL SUCC 25MG EXT REL TAB PO SCH (09:00)
[2019-08-11] MEDS ORDERED: ATORVASTATIN 40 MG TAB PO SCH (09:00)
[2019-08-11] MEDS ORDERED: NON-FORMULARY MEDICATION (Potassium Gluconate 99 MG) PO SCH (09:00)
[2019-08-11] MEDS ORDERED: INSULIN DEGLUDEC 200 UNIT/ML SQ SCH (09:00)
[2019-08-11] MEDS ORDERED: PIPERACILLIN/TAZOBACTAM 4.5 GM in DEXTROSE 5% 100 ML IV ONE (09:00)
[2019-08-11] MEDS ORDERED: VANCOMYCIN HCL 2,500 MG in SODIUM CHLORIDE 0.9% 500 ML IV ONE (09:00)
--- NOTE | 2019-08-11 11:29 | Pharmacy Report ---
Pharmacy Abx Dose Short Note - Date of Service August 11, 2019 - Assessment & Plan Assessment * 69 year old F ordered VANCOMYCIN + ZOSYN for treatment of SSTI in the setting of b/l lymphedema and venous stasis ulcer * 06/29/19 leg wound cx grew MSSA and arellano-sensitive enterobacter cloacae * Currently afebrile, non-hypotensive, non-tachycardic, and non-tachypneic. * No leukocytosis noted on today's CBC * BLCXs and Urine Cx pending (UA did show pyuria however was a contaminated specimen, > 30 epis) * Renal fxn appears to be at baseline Plan Vancomycin * Loading dose: 2500mg x1 (~20mg/kg) * Maint dose: 1500mg (~12.5mg/kg) IV Q 12 hrs * Goal trough level for SSTI w/o systemic symptoms : 10 to 20 mcg/mL * Will check trough level w/ 3rd or 4th maint dose if therapy to continue Zosyn * eCrCl > 20cc/ min * BMI > 35 * continue 4.5gm ext-infusion Q 8 hrs Pharmacy will continue to follow and will adjust dose/frequency as necessary. Thank you.
--- NOTE | 2019-08-11 14:15 | Hospitalist Progress Note ---
Date of Service August 11, 2019 Assessment & Plan (1) HTN (hypertension): -as per admission notes on 08/10/2019: "This is a 69-year-old female who has significant PMH of insulin-dependent T2DM, HTN, HLD, COPD, history of PSVT, pituitary macroadenoma status post resection, hypothyroidism, history of breast cancer status post bilateral mastectomy, bilateral lymphedema, history of tobacco abuse, left lower extremity wound who presents to ED at the recommendation of wound clinic secondary to Chest pain, elevated blood pressure and Headache. Recent admission for similar sx on 08/06 and discharge on 08/07. At that time she had increase in her lisinopril to 40 daily along with addition of plavix 75mg daily due to concern for possible TIA. Returns today with Chest pain, uncontrolled HTN and Headache. Symptoms improved in ED with SL nitro which also improved blood pressure." was given nitropaste q6 hours -subsequently, patient's patient's blood pressure controlled on 08/10/2019 and remains normal as of 08/11/2019 08/11/2019: will hold further metoprolol because of bradycardia. monitor blood pressure after stopping scheduled nitropaste. continue current dose of lisinopril and diltiazem. appreciate further changes as needed as per cardiology service (2) Atypical chest pain: -troponins negative x 3. echocardiogram results pending (3) TIA (transient ischemic attack): previous discharge diagnosis of TIA -patient's previous discharge diagnosis of TIA was based on precaution by neurologist from previous admission, as patient complained of intermitted numbness of right face even though MRI brain imaging did not show any evidence of stroke. -do not believe patient's recent headache or "face pressure" as she described it has anything to do with stroke. -will nonetheless continue Aspirin 81 mg daily and clopidogrel 75 mg daily regimen for the previously recommended 21 day duration (until 08/28/2019) , then clopidogrel daily only -although patient was prescribed atorvastatin 40 mg to replace her usual pravastatin 20 mg daily, patient insisted that she had a statin intolerance in the past - continue pravastatin 20 mg daily for now (4) Dyslipidemia: - on a statin (5) Lymphedema: chronic bilateral lymphedema -continue Lasix (6) Venous stasis ulcer: -chronic Venous stasis ulcer -follows Dr. Patino and wound clinic; current tx is Cutimed Sorbact swab and plain Aquacel with 2 layer Coban wrap Left lower leg injury, and possible cellulitis -while in the hospital, patient had laceration of her left leg which required stitches on 08/10/2019. patient reported that Tetanus vaccine was not indicated as per emergency room/admission providers as she was up to date with her vaccinations -on assessment on 08/11/2019, the wound that is sutured could be risk of skin infection. blood cultures were drawn and patient started broadly on IV Zosyn and IV Vancomycin -continue wound care (7) Type 2 diabetes mellitus, with long-term current use of insulin: last A1C 6.2 07/2019 -continue tresiba, trulicity, novolog (8) Hypothyroidism: -continue levothyroxine (9) COPD (chronic obstructive pulmonary disease): -breathing on room air -prn nebulizers if needed (10) DVT prophylaxis: -SQ Heparin Follow up: PCP Dr. Gonzalez upon discharge Admission and Anticipated Discharge Date Admission Date: August 11, 2019 Subjective bilateral lower extremity edema with laceration that is sutured of the left leg. patient agreeable to IV antibiotic to prevent potential leg infection or potential bacteremia. blood pressure controlled. some bradycardia but no chest pain symptoms today. no palpitations. no dizziness. no headache. Review of Systems Review of Systems: All systems reviewed & are unremarkable except as noted in HPI & below Physical Exam Constitutional: + obese and comfortable Eyes: PERRL, conjunctivae normal, anicteric sclerae EOM intact bilaterally ENMT: external ear and nose normal, oropharynx normal Neck: normal visual inspection Respiratory: normal respiratory effort Cardiovascular: Rate/Rhythm: + bradycardic Gastrointestinal (Abdomen): normal bowel sounds, soft, nontender, no hepatosplenomegaly Musculoskeletal: Head/Neck/Chest: normocephalic Skin: bilateral lower extremity edema with laceration that is sutured of the left leg Neurologic: PERRL, EOMI, accommodation nl, no face palsy, no dysarthria CN's II-XI intact bilaterally Psychiatric: A+Ox3, euthymic affect Results & Data ([facility]) Vital Signs (Past 12 Hours) Vital Signs Temp Pulse Pulse Resp BP Pulse Ox 08/11/19 11:00 36.8 C 40 L 18 133/43 L 93 08/11/19 08:00 70 08/11/19 07:30 36.4 C L 56 L 20 155/56 H 95 08/11/19 04:17 36.9 C 46 L 19 143/53 H 96 (1) Hypothyroidism Hypothyroidism type: unspecified Qualified Code(s): E03.9 - Hypothyroidism, unspecified (2) Venous stasis ulcer Laterality: left Non-pressure ulcer stage: limited to breakdown of skin Varicose vein presence: unspecified whether present Venous stasis ulcer site: calf Qualified Code(s): I83.022 - Varicose veins of left lower extremity with ulcer of calf; L97.221 - Non-pressure chronic ulcer of left calf limited to breakdown of skin (3) HTN (hypertension) Hypertension type: unspecified Qualified Code(s): I10 - Essential (primary) hypertension
[2019-08-11] MEDS: PIPERACILLIN/TAZOBACTAM 4.5 GM in DEXTROSE 5% 100 ML IV SCH ×2 (14:37→21:56)
--- NOTE | 2019-08-11 14:49 | Electrocardiogram Report ---
Test Reason : Blood Pressure : / mmHG Vent. Rate : 070 BPM Atrial Rate : 070 BPM P-R Int : 190 ms QRS Dur : 088 ms QT Int : 374 ms P-R-T Axes : 072 040 045 degrees QTc Int : 404 ms Poor data quality, interpretation may be adversely affected Sinus rhythm with frequent Premature ventricular complexes in a pattern of bigeminy Low voltage QRS Possible Anterolateral infarct (cited on or before 08-AUG-2019) Abnormal ECG When compared with ECG of 10-AUG-2019 09:41, No significant change Confirmed by Dion Hill ([id number]) on 08/11/2019 2:48:55 PM Referred By: REFERRED SELF Confirmed By:Dion Hill
--- NOTE | 2019-08-11 15:09 | Electrocardiogram Report ---
Test Reason : Blood Pressure : / mmHG Vent. Rate : 077 BPM Atrial Rate : 077 BPM P-R Int : 178 ms QRS Dur : 074 ms QT Int : 360 ms P-R-T Axes : 062 026 037 degrees QTc Int : 408 ms Sinus rhythm with frequent Premature ventricular complexes Cannot rule out Anterior infarct (cited on or before 08-AUG-2019) Prolonged QT Abnormal ECG When compared with ECG of 10-AUG-2019 15:59, (unconfirmed) No significant change Confirmed by Dion Hill ([id number]) on 08/11/2019 3:08:50 PM Referred By: REFERRED SELF Confirmed By:Dion Hill
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
[2019-08-11] MEDS: VANCOMYCIN HCL 1,500 MG in SODIUM CHLORIDE 0.9% 500 ML IV SCH (21:56)
[2019-08-12] MEDS: PIPERACILLIN/TAZOBACTAM 4.5 GM in DEXTROSE 5% 100 ML IV SCH ×3 (05:56→21:56)
[2019-08-12] MEDS: LEVOTHYROXINE SODIUM 100 MCG TABLET PO SCH (05:56)
[2019-08-12] MEDS: HEPARIN SOD 5,000 UNIT/0.5 ML VIAL SQ SCH ×3 (05:57→21:56)
[2019-08-12] MEDS: TOPIRAMATE 50 MG TAB PO SCH (08:19)
[2019-08-12] MEDS: FUROSEMIDE 20 MG TAB PO SCH (08:19)
[2019-08-12] MEDS: PRAVASTATIN SOD 20 MG TAB PO SCH (08:19)
[2019-08-12] MEDS: ASPIRIN 81 MG ECTAB PO SCH (08:19)
[2019-08-12] MEDS: CLOPIDOGREL BISULFATE 75 MG TAB PO SCH (08:19)
[2019-08-12] MEDS: dilTIAZem ER 120 MG CAPCR PO SCH (08:19)
[2019-08-12] MEDS: INSULIN ASPART 100 UNITS/ML 3 ML PEN SC SCH ×4 (08:19→20:22)
[2019-08-12] MEDS: lisinopriL 40 MG TAB PO SCH (08:19)
[2019-08-12] MEDS: TOCOPHERYL, DL-ALPHA 400 UNITS CAP PO SCH (08:19)
[2019-08-12] MEDS: INSULIN DEGLUDEC 200 UNITS/ML PEN SQ SCH (08:20)
[2019-08-12 10:19] LABS: Creatinine Clr Calc Pharmacy 71.6 ml/min; Est GFR (African American) 63.6; Est GFR (Non-African American) 54.9
[2019-08-12] MEDS: VANCOMYCIN HCL 1,500 MG in SODIUM CHLORIDE 0.9% 500 ML IV SCH ×2 (12:31→23:45)
--- NOTE | 2019-08-12 13:44 | Cardiology Progress Note ---
Date of Service August 12, 2019 Assessment & Plan (1) Uncontrolled hypertension: (2) Atypical chest pain: (3) TIA (transient ischemic attack): (4) Bradycardia: (5) Type 2 diabetes mellitus with complications: The patient has no new cardiac complaints today. Cardiology will sign off the case. I would continue to treat the patient's blood pressure with medication adjustments. She usually follows with Dr. Davey as an outpatient and I would recommend after discharge that she have a follow-up appointment with him. Subjective The patient has no new complaints today. She is sitting comfortably in a chair. Review of Systems Review of Systems: All systems reviewed & are unremarkable except as noted in HPI & below Nothing additional to add. Physical Exam Physical Exam: General: no acute distress and stated age Head: normocephalic, no masses, lesions, tenderness or abnormalities Eyes: conjunctiva are pink and non-injected, sclera clear Neck: supple, no adenopathy, no bruits, normal jugular venous pulse, no hepatojugular reflux Chest: normal shape and normal respiratory effort Lungs: clear to auscultation and percussion Cardiac Exam: - regular rate & rhythm, no murmurs gallops or rubs - normal S1, normal S2 Pulses: 2(+) throughout Abdomen: abdomen soft, non-tender, no abnormal masses and no hepatosplenomegaly Musculoskeletal: no gait disturbance, no joint inflammation, no deforming arthritis Extremities: no edema and no cyanosis Neuro: grossly normal exam Results & Data Vital Signs (Past 12 Hours) Vital Signs Temp Pulse Pulse Resp BP Pulse Ox 08/12/19 11:14 36.5 C 78 19 155/73 H 94 08/12/19 07:20 36.4 C L 54 L 17 132/54 L 94 08/12/19 04:27 36.3 C L 50 L 20 138/41 L 96 Laboratory Results Laboratory Results - last 24 hr 08/11/19 08/11/19 08/12/19 16:21 20:41 07:21 Creatinine Est Cr Clr Drug Dosing Est GFR ( Amer) Est GFR (Non-Af Amer) POC Glucose 83 88 70 08/12/19 08/12/19 09:30 11:17 Creatinine 1.05 Est Cr Clr Drug Dosing 71.6 Est GFR ( Amer) 63.6 Est GFR (Non-Af Amer) 54.9 POC Glucose 97 Medications Administered Current Inpatient Medications Acetaminophen (Tylenol) 650 mg PO Q4H PRN PRN Reason: Pain or Fever Stop: 09/09/19 15:24 Last Admin: 08/11/19 04:21 Dose: 650 mg Documented by: Al Hydrox/Mg Hydrox/Simethicone (Maalox) 15 ml PO Q4H PRN PRN Reason: Dyspepsia Stop: 09/09/19 15:24 Albuterol (Duoneb) 3 ml NEB QIDR PRN PRN Reason: sob/wheezing Stop: 09/09/19 15:24 Aspirin (Ecotrin Ectab) 81 mg PO [facility] Stop: 09/10/19 08:59 Last Admin: 08/12/19 08:19 Dose: 81 mg Documented by: Clopidogrel Bisulfate (Plavix) 75 mg PO [facility] Stop: 09/10/19 08:59 Last Admin: 08/12/19 08:19 Dose: 75 mg Documented by: Dextrose (Dextrose 50%) 25 - 50 ml IV UD PRN; Protocol PRN Reason: Hypoglycemia Protocol Stop: 09/09/19 15:24 Diltiazem HCl (Tiazac) 120 mg PO [facility] Stop: 09/10/19 08:59 Last Admin: 08/12/19 08:19 Dose: 120 mg Documented by: Furosemide (Lasix) 20 mg PO [facility] Stop: 09/10/19 08:59 Last Admin: 08/12/19 08:19 Dose: 20 mg Documented by: Glucagon (Glucagen) 1 mg SQ UD PRN; Protocol PRN Reason: Hypoglycemia Protocol Stop: 09/09/19 15:24 Glucose (Dex4 Glucose) 4 - 8 tabs PO UD PRN; Protocol PRN Reason: Hypoglycemia Protocol Stop: 09/09/19 15:24 Glucose (Glucose 40%) 15 - 30 gm PO UD PRN; Protocol PRN Reason: Hypoglycemia Protocol Stop: 09/09/19 15:24 Heparin Sodium (Porcine) (Heparin Sodium (Porcine)) 5,000 units SQ Q8 [facility] Stop: 09/09/19 21:59 Last Admin: 08/12/19 05:57 Dose: Not Given Documented by: Piperacillin Sod/Tazobactam (Sod 4.5 gm/ Dextrose) 120 mls @ 30 mls/hr IV Q8H [facility]; Protocol Stop: 08/18/19 13:59 Last Infusion: 08/12/19 10:06 Dose: Infused Documented by: Vancomycin HCl 1,500 mg/ (Sodium Chloride) 530 mls @ 200 mls/hr IV Q12H [facility] Stop: 08/18/19 22:59 Last Admin: 08/12/19 12:31 Dose: 200 mls/hr Documented by: Insulin Aspart (Novolog Flexpen) [facility] Stop: 09/09/19 16:29 Last Admin: 08/12/19 12:33 Dose: 4 units Documented by: Insulin Degludec (Tresiba Flextouch U-200) 120 units SQ [facility] Stop: 09/10/19 08:59 Last Admin: 08/12/19 08:20 Dose: 120 units Documented by: Levothyroxine Sodium (Synthroid) [facility]cg [facility] Stop: 09/10/19 06:29 Last Admin: 08/12/19 05:56 Dose: 100 mcg Documented by: Lisinopril (Zestril) 40 mg PO [facility] Stop: 09/10/19 08:59 Last Admin: 08/12/19 08:19 Dose: 40 mg Documented by: Metoprolol Succinate (Toprol Xl) 25 mg PO [facility] Stop: 09/10/19 08:59 Last Admin: 08/11/19 07:42 Dose: 25 mg Documented by: Miscellaneous (Carbohydrates For Hypoglycemia) 15 - 30 gm PO UD PRN PRN Reason: Hypoglycemia Protocol Stop: 09/09/19 15:24 Miscellaneous Information (Consult) 1 ea N/A UD PRN PRN Reason: Consult Stop: 09/10/19 08:13 Miscellaneous Information (Consult) 1 ea N/A UD PRN PRN Reason: Consult Stop: 09/10/19 08:14 Ondansetron HCl (Zofran) 4 mg IV Q6H PRN PRN Reason: Nausea Stop: 09/09/19 15:24 Pravastatin Sodium (Pravachol) 20 mg PO [facility] Stop: 09/10/19 08:59 Last Admin: 08/12/19 08:19 Dose: 20 mg Documented by: Topiramate (Topamax) 50 mg PO [facility] Stop: 09/10/19 08:59 Last Admin: 08/12/19 08:19 Dose: 50 mg Documented by: Vitamin E (Vitamin E) 400 units PO [facility] Stop: 09/10/19 08:59 Last Admin: 08/12/19 08:19 Dose: 400 units Documented by:
--- NOTE | 2019-08-12 16:34 | Electrocardiogram Report ---
Test Reason : Blood Pressure : / mmHG Vent. Rate : 071 BPM Atrial Rate : 071 BPM P-R Int : 180 ms QRS Dur : 082 ms QT Int : 408 ms P-R-T Axes : 050 034 067 degrees QTc Int : 443 ms Sinus rhythm with frequent Premature ventricular complexes Otherwise normal ECG When compared with ECG of 11-AUG-2019 06:38, No significant change Confirmed by Dion Hill ([id number]) on 08/12/2019 4:34:05 PM Referred By: REFERRED SELF Confirmed By:Dion Hill
--- NOTE | 2019-08-12 20:26 | Hospitalist Progress Note ---
Date of Service August 12, 2019 Assessment & Plan (1) HTN (hypertension): Per previous hospitalist Dr. Aly Tsang's notes: -as per admission notes on 08/10/2019: "This is a 69-year-old female who has significant PMH of insulin-dependent T2DM, HTN, HLD, COPD, history of PSVT, pituitary macroadenoma status post resection, hypothyroidism, history of breast cancer status post bilateral mastectomy, bilateral lymphedema, history of tobacco abuse, left lower extremity wound who presents to ED at the recommendation of wound clinic secondary to Chest pain, elevated blood pressure and Headache. Recent admission for similar sx on 08/06 and discharge on 08/07. At that time she had increase in her lisinopril to 40 daily along with addition of plavix 75mg daily due to concern for possible TIA. Returns today with Chest pain, uncontrolled HTN and Headache. Symptoms improved in ED with SL nitro which also improved blood pressure." was given nitropaste q6 hours -subsequently, patient's patient's blood pressure controlled on 08/10/2019 and remains normal as of 08/11/2019 08/12/2019 Metoprolol held for bradycardia Continue lisinopril and diltiazem (2) Atypical chest pain: -troponins negative x 3. echocardiogram results no wall motion abnormalities -No other intervention per cardiology service recommendation (3) TIA (transient ischemic attack): Per previous hospitalist Dr. Aly Tsang's notes: previous discharge diagnosis of TIA -patient's previous discharge diagnosis of TIA was based on precaution by neurologist from previous admission, as patient complained of intermitted numbness of right face even though MRI brain imaging did not show any evidence of stroke. -do not believe patient's recent headache or "face pressure" as she described it has anything to do with stroke. -will nonetheless continue Aspirin 81 mg daily and clopidogrel 75 mg daily regimen for the previously recommended 21 day duration (until 08/28/2019) , then clopidogrel daily only -although patient was prescribed atorvastatin 40 mg to replace her usual pravastatin 20 mg daily, patient insisted that she had a statin intolerance in the past - continue pravastatin 20 mg daily for now (4) Dyslipidemia: - on a statin (5) Lymphedema: chronic bilateral lymphedema -continue Lasix (6) Venous stasis ulcer: Per previous hospitalist Dr. Aly Tsang's notes: -chronic Venous stasis ulcer -follows Dr. Patino and wound clinic; current tx is Cutimed Sorbact swab and plain Aquacel with 2 layer Coban wrap Left lower leg injury, and possible cellulitis -while in the hospital, patient had laceration of her left leg which required stitches on 08/10/2019. patient reported that Tetanus vaccine was not indicated as per emergency room/admission providers as she was up to date with her vaccinations -on assessment on 08/11/2019, the wound that is sutured could be risk of skin infection. blood cultures were drawn and patient started broadly on IV Zosyn and IV Vancomycin -continue wound care 08/12/2019 Afebrile Leg pain improving Blood cultures pending Continue Vanco plus Zosyn Continue wound care daily (7) Type 2 diabetes mellitus, with long-term current use of insulin: last A1C 6.2 07/2019 -continue tresirishi cast novolog (8) Hypothyroidism: -continue levothyroxine (9) COPD (chronic obstructive pulmonary disease): -breathing on room air -prn nebulizers if needed (10) DVT prophylaxis: -SQ Heparin Follow up: PCP Dr. Gonzalez upon discharge Admission and Anticipated Discharge Date Admission Date: August 11, 2019 Subjective Follow-up for chest pain, cellulitis left lower leg Seen resting bedside chair, comfortable, not in distress in good spirits States she feels improved overall Denies chest pain, shortness of breath, palpitations, dizziness Left lower leg pain is improving No fevers or chills No other symptoms Review of Systems Review of Systems: All systems reviewed & are unremarkable except as noted in HPI & below Physical Exam Physical Exam: General- oriented x 3, not in distress, speaks in sentences with no effort or accessory muscle use Eyes- anicteric Neck- no JVD Lungs- clear breath sounds bilaterally, no rales/wheezes Heart- normal rate, regular rhythm; no murmurs Abdomen- normal bowel sounds, nondistended, soft, nontender Extremities-bilateral lateral lower extremity edema Compression stockings in place No erythema on the left lower extremity, wounds dressing intact, no bleeding or discharge Neuro- alert, oriented x 3; no gross focal neurologic deficits Skin- warm & dry Results & Data ([facility]) Vital Signs (Past 12 Hours) Vital Signs Temp Pulse Resp BP Pulse Ox 08/12/19 19:37 36.4 C L 80 18 113/41 L 94 08/12/19 15:45 36.4 C L 77 18 145/51 H 93 08/12/19 11:14 36.5 C 78 19 155/73 H 94 Laboratory Results Laboratory Results - last 24 hr 08/11/19 08/12/19 08/12/19 20:41 07:21 09:30 Creatinine 1.05 Est Cr Clr Drug Dosing 71.6 Est GFR ( Amer) 63.6 Est GFR (Non-Af Amer) 54.9 POC Glucose 88 70 08/12/19 08/12/19 08/12/19 11:17 16:36 20:17 Creatinine Est Cr Clr Drug Dosing Est GFR ( Amer) Est GFR (Non-Af Amer) POC Glucose 97 86 114 H (1) HTN (hypertension) Hypertension type: unspecified Qualified Code(s): I10 - Essential (primary) hypertension (2) Venous stasis ulcer Venous stasis ulcer site: calf Varicose vein presence: unspecified whether present Laterality: left Non-pressure ulcer stage: limited to breakdown of skin Qualified Code(s): I83.022 - Varicose veins of left lower extremity with ulcer of calf; L97.221 - Non-pressure chronic ulcer of left calf limited to breakdown of skin (3) Hypothyroidism Hypothyroidism type: unspecified Qualified Code(s): E03.9 - Hypothyroidism, unspecified
[2019-08-12] MEDS ORDERED: VANCOMYCIN TROUGH ONE (22:30)
[2019-08-12] MEDS: ACETAMINOPHEN 325 MG TAB PO PRN (22:32)
[2019-08-13 06:25] LABS: Hematocrit (blood only) 38.9 % (37-47); Hemoglobin 12.5 g/dL (12.0-16.0); Mean Corpuscular Hemoglobin 28.5 pg (25-34); Mean Corpuscular Hgb Conc 32.1 g/dL (32-36); Mean Corpuscular Volume 88.6 fL (80-100); Mean Platelet Volume 11.5 fL (7.4-10.4); Platelet Count 205 K/uL (130-400); RDW Coefficient of Variation 14.6 % (11.5-14.5); RDW Standard Deviation 47.6 fL (36.4-46.3); Red Blood Count 4.39 M/uL (4.2-5.4); White Blood Count 5.75 K/uL (4.8-10.8)
[2019-08-13] MEDS: LEVOTHYROXINE SODIUM 100 MCG TABLET PO SCH (06:32)
[2019-08-13] MEDS: PIPERACILLIN/TAZOBACTAM 4.5 GM in DEXTROSE 5% 100 ML IV SCH ×2 (06:32→13:40)
[2019-08-13] MEDS: HEPARIN SOD 5,000 UNIT/0.5 ML VIAL SQ SCH ×2 (06:32→13:40)
[2019-08-13 06:43] LABS: Creatinine Clr Calc Pharmacy 83.6 ml/min; Est GFR (African American) 76.7; Est GFR (Non-African American) 66.2
[2019-08-13] MEDS: INSULIN ASPART 100 UNITS/ML 3 ML PEN SC SCH ×2 (08:11→12:04)
[2019-08-13] MEDS: INSULIN DEGLUDEC 200 UNITS/ML PEN SQ SCH (08:12)
[2019-08-13] MEDS: PRAVASTATIN SOD 20 MG TAB PO SCH (08:13)
[2019-08-13] MEDS: FUROSEMIDE 20 MG TAB PO SCH (08:13)
[2019-08-13] MEDS: TOCOPHERYL, DL-ALPHA 400 UNITS CAP PO SCH (08:13)
[2019-08-13] MEDS: dilTIAZem ER 120 MG CAPCR PO SCH (08:13)
[2019-08-13] MEDS: TOPIRAMATE 50 MG TAB PO SCH (08:13)
[2019-08-13] MEDS: lisinopriL 40 MG TAB PO SCH (08:13)
[2019-08-13] MEDS: ASPIRIN 81 MG ECTAB PO SCH (08:13)
[2019-08-13] MEDS: CLOPIDOGREL BISULFATE 75 MG TAB PO SCH (08:13)
--- NOTE | 2019-08-13 08:42 | Pharmacy Report ---
Pharmacy Abx Dose Short Note - Date of Service August 13, 2019 - Assessment & Plan Assessment 69 year old F receiving vancomycin/zosyn for treatment of SSTI Day # 3 of antimicrobial therapy. Plan Vancomycin * Trough level of 22.3 mcg/mL is supratherapeutic, this was drawn ~2 hours early (10 hours from previous dose), true trough projected to be in therapeutic range, however, is this was also drawn prior to third maintenance dose and patient at risk for accumulation, therefore will reduce dose * Change to 1250 mg IV every 12 hours * Goal trough level 10-20 mcg/mL * Trough to be ordered for 08/13 @ 1130 if continued. Pharmacy will continue to follow and will adjust dose/frequency as necessary. Thank you.
[2019-08-13] MEDS ORDERED: VANCOMYCIN HCL 1,250 MG in SODIUM CHLORIDE 0.9% 250 ML IV SCH (12:00)
--- NOTE | 2019-08-13 12:53 | Hospitalist Progress Note ---
Date of Service August 13, 2019 Assessment & Plan (1) Atypical chest pain: -troponins negative x 3. echocardiogram results no wall motion abnormalities -No other intervention per cardiology service recommendation (2) TIA (transient ischemic attack): Per previous hospitalist Dr. Aly Tsang's notes: previous discharge diagnosis of TIA -patient's previous discharge diagnosis of TIA was based on precaution by neurologist from previous admission, as patient complained of intermitted numbness of right face even though MRI brain imaging did not show any evidence of stroke. -do not believe patient's recent headache or "face pressure" as she described it has anything to do with stroke. -will nonetheless continue Aspirin 81 mg daily and clopidogrel 75 mg daily regimen for the previously recommended 21 day duration (until 08/28/2019) , then clopidogrel daily only -although patient was prescribed atorvastatin 40 mg to replace her usual pravastatin 20 mg daily, patient insisted that she had a statin intolerance in the past - continue pravastatin 20 mg daily for now (3) Dyslipidemia: - on a statin (4) Lymphedema: chronic bilateral lymphedema -continue Lasix (5) Venous stasis ulcer: Per previous hospitalist Dr. Aly Tsang's notes: -chronic Venous stasis ulcer -follows Dr. Patino and wound clinic; current tx is Cutimed Sorbact swab and plain Aquacel with 2 layer Coban wrap Left lower leg injury, and possible cellulitis -while in the hospital, patient had laceration of her left leg which required stitches on 08/10/2019. patient reported that Tetanus vaccine was not indicated as per emergency room/admission providers as she was up to date with her vaccinations -on assessment on 08/11/2019, the wound that is sutured could be risk of skin infection. blood cultures were drawn and patient started broadly on IV Zosyn and IV Vancomycin -continue wound care 08/12/2019 Afebrile Leg pain improving Blood cultures pending Continue Vanco plus Zosyn Continue wound care daily (6) Type 2 diabetes mellitus, with long-term current use of insulin: last A1C 6.2 07/2019 -continue tresirishi cast, novolog (7) Hypothyroidism: -continue levothyroxine (8) COPD (chronic obstructive pulmonary disease): -breathing on room air -prn nebulizers if needed (9) DVT prophylaxis: -SQ Heparin Follow up: PCP Dr. Gonzalez upon discharge Admission and Anticipated Discharge Date Admission Date: August 11, 2019 Results & Data ([facility]) Vital Signs (Past 12 Hours) Vital Signs Temp Pulse Resp BP Pulse Ox 08/13/19 11:32 36.6 C 57 L 20 163/65 H 93 08/13/19 07:34 36.8 C 60 18 142/61 H 96 08/13/19 04:41 36.3 C L 66 20 156/72 H 97 (1) Hypothyroidism Hypothyroidism type: unspecified Qualified Code(s): E03.9 - Hypothyroidism, unspecified (2) Venous stasis ulcer Laterality: left Non-pressure ulcer stage: limited to breakdown of skin Varicose vein presence: unspecified whether present Venous stasis ulcer site: calf Qualified Code(s): I83.022 - Varicose veins of left lower extremity with ulcer of calf; L97.221 - Non-pressure chronic ulcer of left calf limited to breakdown of skin
[2019-08-13] MEDS ORDERED: METOPROLOL SUCC 25MG EXT REL TAB PO SCH (13:30)
--- NOTE | 2019-08-13 13:41 | Hospitalist Progress Note ---
Date of Service August 13, 2019 Assessment & Plan (1) HTN (hypertension): Per previous hospitalist Dr. Aly Tsang's notes: -as per admission notes on 08/10/2019: "This is a 69-year-old female who has significant PMH of insulin-dependent T2DM, HTN, HLD, COPD, history of PSVT, pituitary macroadenoma status post resection, hypothyroidism, history of breast cancer status post bilateral mastectomy, bilateral lymphedema, history of tobacco abuse, left lower extremity wound who presents to ED at the recommendation of wound clinic secondary to Chest pain, elevated blood pressure and Headache. Recent admission for similar sx on 08/06 and discharge on 08/07. At that time she had increase in her lisinopril to 40 daily along with addition of plavix 75mg daily due to concern for possible TIA. Returns today with Chest pain, uncontrolled HTN and Headache. 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 Aly Tsang's notes: previous discharge diagnosis of TIA -patient's previous discharge diagnosis of TIA was based on precaution by neurologist from previous admission, as patient complained of intermitted numbness of right face even though MRI brain imaging did not show any evidence of stroke. -do not believe patient's recent headache or "face pressure" as she described it has anything to do with stroke. -will nonetheless continue Aspirin 81 mg daily and clopidogrel 75 mg daily regimen for the previously recommended 21 day duration (until 08/28/2019) , then clopidogrel daily only -although patient was prescribed atorvastatin 40 mg to replace her usual pravastatin 20 mg daily, patient insisted that she had a statin intolerance in the past - continue pravastatin 20 mg daily for now (4) Dyslipidemia: - continue statin (5) Lymphedema: chronic bilateral lymphedema -continue Lasix (6) Venous stasis ulcer: Per previous hospitalist Dr. Aly Tsang's notes: -chronic Venous stasis ulcer -follows Dr. Patino and wound clinic; current tx is Cutimed Sorbact swab and plain Aquacel with 2 layer Coban wrap Left lower leg injury, and possible cellulitis -while in the hospital, patient had laceration of her left leg which required stitches on 08/10/2019. patient reported that Tetanus vaccine was not indicated as per emergency room/admission providers as she was up to date with her vac cinations -on assessment on 08/11/2019, the wound that is sutured could be risk of skin infection. blood cultures were drawn and patient started broadly on IV Zosyn and IV Vancomycin Leg pain resolved Blood cultures: Negative given Vanco plus Zosyn x 3 days no signs of infection- d/c antibiotics monitor closely continue ff [facility] with [facility] (7) Type 2 diabetes mellitus, with long-term current use of insulin: last A1C 6.2 07/2019 -continue tresiba, trulicity, novolog (8) Hypothyroidism: -continue levothyroxine (9) COPD (chronic obstructive pulmonary disease): -stable -prn nebulizers if needed (10) DVT prophylaxis: -SQ Heparin Follow up: PCP Dr. Gonzalez upon discharge Admission and Anticipated Discharge Date Admission Date: August 11, 2019 Subjective ff up for chest pain, HTN seen resting in bedside chair comfortable, in good spirits states she feel much better overall no recurrence of chest pain denies dyspnea, palpitations, dizziness no leg pain, fever/chills denies other symptoms Review of Systems Review of Systems: All systems reviewed & are unremarkable except as noted in HPI & below Physical Exam Physical Exam: General- oriented x 3, not in distress, speaks in sentences with no effort or accessory muscle use Eyes- anicteric Neck- no JVD Lungs- clear BS BL Heart- normal rate, regular rhythm; no murmurs Abdomen- normal bowel sounds, nondistended, soft, nontender Extremities- (+) lower leg edema grade 2 with mild erythema, but no warmth/tenderness (+) sutured laceration left lower young- no bleeding, discharge, no signs of infection Neuro- alert, oriented x 3; no gross focal neurologic deficits Skin- warm & dry Results & Data ([facility]) Vital Signs (Past 12 Hours) Vital Signs Temp Pulse Resp BP Pulse Ox 08/13/19 11:32 36.6 C 57 L 20 163/65 H 93 08/13/19 07:34 36.8 C 60 18 142/61 H 96 08/13/19 04:41 36.3 C L 66 20 156/72 H 97 Laboratory Results Laboratory Results - last 24 hr 08/12/19 08/12/19 08/12/19 16:36 20:17 22:31 WBC RBC Hgb Hct MCV MCH MCHC RDW Std Deviation RDW Coeff of Mitch Plt Count MPV Creatinine Est Cr Clr Drug Dosing Est GFR ( Amer) Est GFR (Non-Af Amer) POC Glucose 86 114 H Vancomycin Trough 22.3 08/13/19 08/13/19 08/13/19 06:10 06:10 07:31 WBC 5.75 RBC 4.39 Hgb 12.5 Hct 38.9 MCV 88.6 MCH 28.5 MCHC 32.1 RDW Std Deviation 47.6 H RDW Coeff of Mitch 14.6 H Plt Count 205 MPV 11.5 H Creatinine 0.90 Est Cr Clr Drug Dosing 83.6 Est GFR ( Amer) 76.7 Est GFR (Non-Af Amer) 66.2 POC Glucose 69 L* Vancomycin Trough 08/13/19 08/13/19 07:32 11:31 WBC RBC Hgb Hct MCV MCH MCHC RDW Std Deviation RDW Coeff of Mitch Plt Count MPV Creatinine Est Cr Clr Drug Dosing Est GFR ( Amer) Est GFR (Non-Af Amer) POC Glucose 75 94 Vancomycin Trough (1) Venous stasis ulcer Venous stasis ulcer site: calf Varicose vein presence: unspecified whether present Laterality: left Non-pressure ulcer stage: limited to breakdown of skin Qualified Code(s): I83.022 - Varicose veins of left lower extremity with ulcer of calf; L97.221 - Non-pressure chronic ulcer of left calf limited to breakdown of skin (2) Hypothyroidism Hypothyroidism type: unspecified Qualified Code(s): E03.9 - Hypothyroidism, unspecified (3) HTN (hypertension) Hypertension type: unspecified Qualified Code(s): I10 - Essential (primary) hypertension
--- NOTE | 2019-08-13 13:47 | Discharge Summary ---
Date of Service August 13, 2019 Admission HPI Per Admitting Provider This is a 69-year-old female who has significant PMH of insulin-dependent T2DM, HTN, HLD, COPD, history of PSVT, pituitary macroadenoma status post resection, hypothyroidism, history of breast cancer status post bilateral mastectomy, bilateral lymphedema, history of tobacco abuse, left lower extremity wound who presents to ED at the recommendation of wound clinic secondary to CP, elevated blood pressure and LONG. Patient recently admitted on 08/06 to 08/07 secondary to hypotension and bradycardia. During hospitalization she was seen and evaluated by cardiology who felt bradycardia was fall secondary to frequent PVCs. She was continued on her home Toprol and diltiazem and her lisinopril was increased from 20 mg to 40 mg. Subsequently on day of admission she became stroke alert secondary to right-sided facial numbness and right arm numbness. She underwent tele-stroke valuation and TPA was not recommended secondary to improvement of symptoms. It was felt symptoms possibly secondary to TIA versus hypertensive urgency. She was seen and evaluated by neurology who recommended ASA and Plavix x21 days and then Plavix indefinitely. She was discharged home on Saturday and was doing well on Saturday. This morning around 2 AM she woke up with a severe headache and chest pressure. She describes the pressure as if something was sitting on her chest. She continually checked her blood pressure and noted that it zack from the 150 systolically to the 180 systolically. With rise in her blood pressure her headache and chest pain became worse. She was seen and evaluated in my clinic today for compression dressing changes. In wound clinic her BP was 152/72. Because of chest pain and headache she was encouraged to see either PCP or ED. Currently after tx in ED her CP is 4/10, substernal, still a pressure, LONG is improving and mild. She denies f/c/s, dizziness, SOB at rest, palpitations, n/v/d, abdominal pain. She has had a 20lb weight gain in 6 months and complains of increased abd girth and bloating. Further c/o increased lower ext swelling. Not always compliant with lasix depending on her daily schedule. Otherwise she has been compliant with her medications. Sx improved in ED with SL nitro which also improved BP. She also received migraine cocktail with IV benadryl, reglan. In ED she remained hemodynamically stable. She was hypertensive with fluctuating blood pressures. CBC, CMP relatively unremarkable. Her BUN was 20 creatinine 1.97, initial troponin negative, mag 2.6, proBNP pending. Urinalysis obtain which appears contaminated. She is asymptomatic from a urine standpoint. Chest x-ray revealed mild volume overload and congestive change. Minimal added density in left lung base could be consistent with pulmonary edema versus overlapping soft tissue. EKG revealed normal sinus rhythm with bigeminy and no ST or T wave changes. Admission Exam Per Admitting Provider Physical Exam: Constitutional: WD/WN, morbidly obese, female, sitting up at bedside, vitals as above, NAD, pleasant, conversing easily Head: Normocephalic, Atraumatic Eyes: PERRL, conjunctivae normal, anicteric sclerae ENMT: external ear and nose normal, oropharynx normal Neck: trachea midline, no thyromegaly normal visual inspection Respiratory: normal respiratory effort, lungs clear to auscultation, no wheeze, rales, rhonchi. Normal insp/exp effort, no accessory muscle use Cardiovascular: Bradycardic rate with ectopy, regular rhythm, no murmur, bilateral severe lymphedema with bilateral compressive dressings in place. B/L +1 pedal pulse Vessels: no JVD or carotid bruit Chest: normal inspection of chest, chest pain not reproducible Abdomen: Protuberant abdomen secondary to obesity, firm, nontender, no hepatosp lenomegaly , normal active bowel sounds throughout Musculoskeletal: no cyanosis or clubbing,upper ext 5/5, decreased ROM to b/l lower ext due to extensive lymphedema Skin: no rashes, warm and dry normal turgor Neurologic: PERRL, EOMI, accommodation nl, no face palsy, no dysarthria CN's II-XI intact bilaterally and moves all extremities Psychiatric: A+Ox3, euthymic affect Lymphatic: no cervical or axillary lymphadenopathy : deferred Principal Diagnosis Atypical Chest Pain, Hypertension Discharge Exam Physical Exam: General- oriented x 3, not in distress, speaks in sentences with no effort or accessory muscle use Eyes- anicteric Neck- no JVD Lungs- clear BS BL Heart- normal rate, regular rhythm; no murmurs Abdomen- normal bowel sounds, nondistended, soft, nontender Extremities- (+) lower leg edema grade 2 with mild erythema, but no warmth/tenderness (+) sutured laceration left lower young- no bleeding, discharge, no signs of infection Neuro- alert, oriented x 3; no gross focal neurologic deficits Skin- warm & dry Discharge Data Allergies Allergy/AdvReac Type Severity Reaction Status Date / Time fentanyl Allergy Severe Anaphylaxis Verified 08/10/19 10:17 Quinolones Allergy Intermediate CIPRO-HIVES Verified 08/10/19 10:17 latex Allergy Mild rash, and Verified 08/10/19 10:17 blisters black pepper Allergy Unknown Verified 08/10/19 10:17 perflutren [From Definity] AdvReac Severe Back Pain Verified 08/11/19 13:50 adhesive AdvReac Unknown rash Verified 08/10/19 10:17 codeine AdvReac Unknown hallucinati Verified 08/10/19 10:17 ons metformin AdvReac Unknown gi upset Verified 08/10/19 10:17 sitagliptin AdvReac Unknown GI SYMPTOMS Verified 08/10/19 10:17 Consultations 08/10/19 13:29 ED Decision to Admit Stat 08/10/19 14:50 Consult Cardiology Routine Ordered Studies 08/10/19 09:40 CT head/brain wo con Stat CT DOSE: 537.48 mGy.cm HISTORY: Mental status change Hypertension TECHNIQUE: Multiaxial CT images of the head were performed without the use of intravenous contrast. A dose lowering technique was utilized adhering to the principles of ALARA. Comparison: 08/07/2019 Findings: Unchanged mucus retention cyst left maxillary sinus The calvarium and skull base are intact. The ventricles and sulci are within normal limits. There is no mass, hematoma, midline shift, or acute infarct. Impression: No acute intracranial abnormality. No change from the prior study. ACT 112: Negative or not required by law. Hospital Course (1) HTN (hypertension): Per previous hospitalist Dr. Aly Tsang's notes: -as per admission notes on 08/10/2019: "This is a 69-year-old female who has significant PMH of insulin-dependent T2DM, HTN, HLD, COPD, history of PSVT, pituitary macroadenoma status post resection, hypothyroidism, history of breast cancer status post bilateral mastectomy, bilateral lymphedema, history of tobacco abuse, left lower extremity wound who presents to ED at the recommendation of wound clinic secondary to Chest pain, elevated blood pressure and Headache. Recent admission for similar sx on 08/06 and discharge on 08/07. At that time she had increase in her lisinopril to 40 daily along with addition of plavix 75mg daily due to concern for possible TIA. Returns today with Chest pain, uncontrolled HTN and Headache. Symptoms improved in ED with SL nitro which also improved blood pressure." was given nitropaste q6 hours -subsequently, patient's patient's blood pressure controlled on 08/10/2019 and remains normal as of 08/11/2019 - discussed with Dr. 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 Aly Tsang's notes: previous discharge diagnosis of TIA -patient's previous discharge diagnosis of TIA was based on precaution by neurologist from previous admission, as patient complained of intermitted numbness of right face even though MRI brain imaging did not show any evidence of stroke. -do not believe patient's recent headache or "face pressure" as she described it has anything to do with stroke. -will nonetheless continue Aspirin 81 mg daily and clopidogrel 75 mg daily regimen for the previously recommended 21 day duration (until 08/28/2019) , then clopidogrel daily only -although patient was prescribed atorvastatin 40 mg to replace her usual pravastatin 20 mg daily, patient insisted that she had a statin intolerance in the past - continue pravastatin 20 mg daily for now (4) Dyslipidemia: - continue statin (5) Lymphedema: chronic bilateral lymphedema -continue Lasix (6) Venous stasis ulcer: Per previous hospitalist Dr. Aly Tsang's notes: -chronic Venous stasis ulcer -follows Dr. Patino and wound clinic; current tx is Cutimed Sorbact swab and plain Aquacel with 2 layer Coban wrap Left lower leg injury, and possible cellulitis -while in the hospital, patient had laceration of her left leg which required stitches on 08/10/2019. patient reported that Tetanus vaccine was not indicated as per emergency room/admission providers as she was up to date with her vaccinations -on assessment on 08/11/2019, the wound that is sutured could be risk of skin infection. blood cultures were drawn and patient started broadly on IV Zosyn and IV Vancomycin Leg pain resolved Blood cultures: Negative given Vanco plus Zosyn x 3 days no signs of infection- d/c antibiotics monitor closely continue ff up with [facility] suture removal 2 weeks from 08/10/2019 (7) Type 2 diabetes mellitus, with long-term current use of insulin: last A1C 6.2 07/2019 -continue tresiba, trulicity, novolog (8) Hypothyroidism: -continue levothyroxine (9) COPD (chronic obstructive pulmonary disease): -stable -prn nebulizers if needed (10) DVT prophylaxis: -SQ Heparin Follow up: PCP Dr. Gonzalez upon discharge Total Time Total Time Spent Total Time Spent (In Minutes): 60 minutes Discharge Plan Discharge Items Patient Disposition: Home - Home Health Services Reason For Visit: CHEST PAIN AND HTN URGENCY Discharge Diagnosis: HTN (hypertension) Atypical chest pain previous discharge diagnosis transient ischemic attack(TIA) Activity: As commented below Activity Comment: Resume activity gradually as tolerated. Lifting: Wait until after follow-up appointment Exercise/Sports: Wait until after follow-up appointment Driving/Machine Use: No driving until re-evaluated and allowed by Primary Care Physician Non-emergency contact: Primary Care Provider Call non-emergency contact if: you have any medication questions, your symptoms worsen, you have a fever, your wound has increased redness, your wound has increased drainage and your wound pain has increased Follow-up/Referrals: Kalen Gonzalez, [Primary Care Provider] - 08/18/19 1:45 pm Diet: Carb Consistent or DM2 and Heart Healthy Addtl Attending Provider Instructions: Please resume your usual medications. Take a probiotic daily and include yogurt in your daily diet. Please follow instructions for wound dressing. Suture removal in 2 weeks. Call Primary Care Physician or return to the ER immediately if with recurrence of symptoms, fever/chills, increasing leg or wound area redness, swelling, tenderness, pain, diarrhea. Please follow up with Dr. Gonzalez as outlined above. Follow up with Dr. Davey in 2 weeks. Pending Studies at Discharge: No Stand-Alone Forms: My [employer], Smoking Cessation Medications and DC Order Prescriptions: Continued furosemide [Lasix] 20 mg tablet 20 mg PO QAM RF: 0 ipratropium-albuterol 0.5 mg-3 mg(2.5 mg base)/3 mL solution for nebulization 3 ml INH Q4H PRN (Reason: shortness of breath or wheezing) RF: 0 levothyroxine 100 mcg capsule 100 mcg PO QAM RF: 0 albuterol sulfate 90 mcg/actuation HFA aerosol inhaler 2 puffs INH Q4H PRN (Reason: Shortness Of Breath) RF: 0 aspirin [Aspir-81] 81 mg tablet,delayed release (DR/EC) 81 mg PO QAM RF: 0 diltiazem HCl [Tiazac] 120 mg capsule,extended release 24 hr 120 mg PO QAM RF: 0 dulaglutide [Trulicity] 0.75 mg/0.5 mL pen injector 1 dose SQ KAPLAN RF: 0 Novolog U-100 Insulin aspart 100 unit/mL solution 0 units SQ AC RF: 0 topiramate [Topamax] 50 mg tablet 50 mg PO QAM RF: 0 pravastatin 20 mg tablet 20 mg PO QAM RF: 0 Tresiba FlexTouch U-200 200 unit/mL (3 mL) Insulin Pen 160 unit SUBCUT QAM RF: 0 naproxen sodium [Aleve] 220 mg Tablet 220 mg PO Q12H PRN (Reason: Pain) RF: 0 metoprolol succinate 25 mg tablet extended release 24 hr 25 mg PO QAM RF: 0 vitamin E 400 unit Capsule 400 unit PO QAM RF: 0 Vitamin D3 4,000 unit Capsule 4,000 unit PO Q2D RF: 0 potassium gluconate 600 mg (99 mg) Tablet 99 mg PO QAM RF: 0 lisinopril [Zestril] 40 mg Tablet 40 mg PO QAM 30 Days Qty: 30 RF: 0 clopidogrel 75 mg Tablet 75 mg PO QAM 21 Days Qty: 21 RF: 0 aspirin 81 mg Tablet,Delayed Release (Dr/Ec) 81 mg PO QAM 30 Days Qty: 30 RF: 1 atorvastatin 40 mg Tablet 40 mg PO QAM 30 Days Qty: 30 RF: 0 Discharge Orders: Discharge Order (Routine); Ordered 08/13/19 Ordered By: [place] Admission Data Admit Date/Time: 08/11/19 08:21 Attending Provider: [place] Admit Provider: Savita Kaye Primary Care Provider: Kalen Gonzalez Other Providers: Savita Kaye ; Eze Gallardo ; Aly Tsang
[2019-08-14] MEDS ORDERED: VANCOMYCIN TROUGH ONE (11:30)
== END 2019-08-13 15:22 | disposition home or self-care (01) | DRG 305 ==
LOC: ED 09:02 → 2E 09:02 → SUATTDRO 13:47 → 2E 14:28 → SUATTDRO 08-11 08:21

== ENCOUNTER 2021-03-08 20:19 | Inpatient (IN) ==
[2021-03-08] MEDS ORDERED: cefTRIAXone SODIUM 1,000 MG/50 ML BAG IV STA (21:05)
[2021-03-08] MEDS ORDERED: VANCOMYCIN HCL 2,000 MG in SODIUM CHLORIDE 0.9% 500 ML IV ONE (21:05)
[2021-03-08] MEDS ORDERED: VANCOMYCIN CONSULT ACTIVE PRN (21:05)
[2021-03-08 22:10] LABS: Basophils # (auto) 0.02 K/uL (0-0.2); Basophils % (auto) 0.1 %; Eosinophils # (auto) 0.01 K/uL (0-0.5); Eosinophils % (auto) 0.1 %; Hemoglobin 11.9 g/dL (12.0-16.0); Immature Granulocytes # (auto) 0.06 K/uL (0.00-0.02); Immature Granulocytes % (auto) 0.4 %; Lymphocytes # (auto) 1.13 K/uL (1.2-3.4); Lymphocytes % (auto) 6.8 %; Mean Corpuscular Hemoglobin 28.4 pg (25-34); Mean Corpuscular Hgb Conc 32.2 g/dL (32-36); Mean Corpuscular Volume 88.3 fL (80-100); Mean Platelet Volume 11.1 fL (7.4-10.4); Monocytes # (auto) 0.94 K/uL (0.11-0.59); Monocytes % (auto) 5.6 %; Neutrophils # (auto) 14.54 K/uL (1.4-6.5); Platelet Count 186 K/uL (130-400); RDW Coefficient of Variation 14.6 % (11.5-14.5); RDW Standard Deviation 47.5 fL (36.4-46.3); Red Blood Count 4.19 M/uL (4.2-5.4)
[2021-03-08] MEDS ORDERED: SODIUM CHLORIDE 0.9% 1000ML 1,000 ML IV ONE (22:11)
--- NOTE | 2021-03-08 22:18 | Emergency Department Note ---
Impression & Plan Acute pyelonephritis, Fever, Bacteremia ED Provider Note NAME: ROSENDO HERNANDEZ AGE: 70 SEX: F : 1950 ARRIVES VIA: Walk-In INFORMANT: Patient, ED PROVIDER(S): Melchor Kwan DO CHIEF COMPLAINT: Fever HPI: The patient is a 70-year-old female who presented to the emergency department for an evaluation of febrile illness. The patient was in our facility this morning with similar complaints. She is noticed fever and chills. She had laboratory and radiographic studies obtained at that time. She was offered admission at that time because of elevated white blood cell count and no definite source but the patient decided she wanted to go home as she was feeling better. The patient was found to have a positive blood culture already. She was called to return the emergency department for further evaluation. She states that she now has weakness and is having significant weakness with any exertion. The patient also complains of fever. She has noticed some dysuria. She does note some back pain but does have a history of chronic back pain. She denies having any recent trauma. Her work-up this morning did show a white blood cell count that was elevated. The patient did not see her family doctor for the symptoms. ROS: See above HPI for pertinent positives & negatives. A total of 10 systems reviewed and were otherwise negative. PAST MEDICAL HISTORY: See Below PAST SURGICAL HISTORY: See Below FAMILY HISTORY: See Below SOCIAL HISTORY: See Below HOME MEDICATIONS: See Below ALLERGIES: See Below VITALS: See Below PHYSICAL EXAMINATION: GENERAL: The patient is awake and alert. She is somewhat anxious appearing but overall comfortable. EYES: The conjunctivae are clear. The pupils are round and reactive. EARS, NOSE, MOUTH AND THROAT: The nose is without any evidence of any deformity. NECK: The neck is nontender and supple. RESPIRATORY: Normal respiratory effort is noted there is no evidence of wheezing rhonchi or rales CARDIOVASCULAR: Regular rate and rhythm noted there no murmurs rubs or gallops normal S1 normal S2. GASTROINTESTINAL: The abdomen is soft. Abdomen is nontender. MUSCULOSKELETAL/EXTREMITIES: There is no evidence of gross deformity full range of motion is noted in the hips and shoulders. SKIN: Pedal edema was noted bilaterally. NEUROLOGIC: Patient is awake alert and oriented x3 MEDICAL DECISION MAKING: The patient is a 70-year-old female who presented to the emergency department for an evaluation of fever. The patient was seen earlier in the day. At that time she had laboratory and radiographic studies. It was advised that she stay in the hospital because she had a very elevated white blood cell count. At that time her urinalysis was not very impressive. The patient decided to go home. We called the patient back this evening because one of her blood cultures was positive. The patient was started on empiric antibiotics for gram-positive bacteremia. At this time the patient was found to have signs of urinary tract infection on urinalysis. I discussed the patient's condition with her. I also discussed her case with the on-call [facility] hospitalist. They will evaluate the patient in the emergency department for further management and disposition. The patient did have multiple episodes of hypotension which were treated with IV fluids. Triage Nursing notes reviewed. Prior medical records reviewed Vital Signs: reviewed and remarkable for hypotension and fever, Differential diagnosis: Viral syndrome, otitis, pharyngitis, pneumonia, influenza, meningitis, urinary tract infection, sepsis, bacteremia, as well as other pathologies. ER treatment provided: See below Diagnostics interpreted by me: ECG: EKG was obtained in the emergency department. My interpretation is normal sinus rhythm at 87 bpm. There was no ectopy. There was no acute ST segment abnormalities noted. This was compared to the earlier tracing. No significant changes were noted. Cardiac Monitoring: An order was placed for continuous cardiac monitoring. The monitor shows a rate of 85 bpm with sinus rhythm. Laboratory studies: As stated above and show below. Imaging studies: See below Consultation(s): The case was discussed with the on-call [facility] Hospitalist, Dr. Andrade. He will evaluate the patient in the emergency department. Past Med/Surg History Medical History Albuminuria Allergic rhinitis Anxiety Arthritis Asthma Atypical chest pain Background diabetic retinopathy associated with type 2 diabetes mellitus Benign neoplasm of colon Bradycardia Breast cancer Carpal tunnel syndrome COPD (chronic obstructive pulmonary disease) Diabetes type 2, controlled Diabetic nephropathy associated with type 2 diabetes mellitus Dyslipidemia Eustachian tube dysfunction Eustachian tube dysfunction Nnamdi's thyroiditis Hypertension Hypertrophy of both inferior nasal turbinates Hypothyroidism IBS (irritable bowel syndrome) Lumbar canal stenosis Lymphedema Nasal septal deviation Neoplasm of sphenoid sinus Nephrolithiasis Obesity PAC (premature atrial contraction) Pituitary macroadenoma with extrasellar extension PSVT (paroxysmal supraventricular tachycardia) Right sacral radiculopathy Sensorineural hearing loss Tardy ulnar nerve palsy TIA (transient ischemic attack) Type 2 diabetes mellitus with complications Type 2 diabetes mellitus, with long-term current use of insulin Urinary frequency Urinary urgency Vaginal candidiasis Venous stasis ulcer Vitiligo Surgical History H/O bilateral mastectomy H/O bladder repair surgery H/O colonoscopy H/O cystoscopy H/O knee surgery H/O sinus surgery History of carpal tunnel release History of dental surgery History of dilatation and curettage History of salpingo-oophorectomy S/P cholecystectomy S/P laparoscopic cholecystectomy S/P mastectomy S/P nasal surgery S/P oophorectomy S/P tubal ligation Surgery, elective Mid-urethral sling placement Family History Father Coronary heart disease Hypertension Mother Malignant melanoma Son Asthma Grandfather (Maternal) Colorectal cancer Grandmother (Maternal) Uterine cancer Other Diabetes Heart disease Social History Smoking Status: Never smoker packs per day: 2; Years Smoked: 30; Hx Alcohol Use: No Hx Substance Use: No Preferred Language: Estonian Communication Ability: Effective Visual Impairment: No Limitations Hearing Ability: Normal Cover Inspector Required: No Beliefs That Will Affect Care: None marital status: Current Living Situation: Spouse current occupational status: retired Feels Safe at Home: Yes Assistive Devices: None Allergies Allergies Allergy/AdvReac Type Severity Reaction Status Date / Time fentanyl Allergy Severe Anaphylaxis Verified 03/09/21 00:08 Quinolones Allergy Intermediate CIPRO-HIVES Verified 03/09/21 00:08 latex Allergy Mild rash, and Verified 03/09/21 00:08 blisters black pepper Allergy Unknown Verified 03/09/21 00:08 perflutren [From Definity] AdvReac Severe Back Pain Verified 03/09/21 00:08 cephalexin [From Keflex] AdvReac Mild constipatio Verified 03/09/21 00:08 n adhesive AdvReac Unknown rash Verified 03/09/21 00:08 atorvastatin AdvReac Unknown Gastrointestinal Verified 03/09/21 00:08 Upset codeine AdvReac Unknown hallucinati Verified 03/09/21 00:08 ons metformin AdvReac Unknown gi upset Verified 03/09/21 00:08 sitagliptin AdvReac Unknown GI SYMPTOMS Verified 02/09/21 07:59 Home Meds Home Medications Medication Instructions Recorded Confirmed albuterol sulfate 90 mcg/actuation 2 puffs INH Q4H PRN gm 07/29/18 03/08/21 aerosol inhaler diltiazem HCl 120 mg capsule,24 120 mg PO QAM 07/29/18 03/08/21 hr,extended release (Tiazac) dulaglutide 0.75 mg/0.5 mL 1 dose SQ KAPLAN ml 07/29/18 03/08/21 subcutaneous pen injector (Trulicity) ipratropium 0.5 mg-albuterol 3 mg 3 ml INH Q4H PRN ml 07/29/18 03/08/21 (2.5 mg base)/3 mL nebulization soln levothyroxine 100 mcg capsule 100 mcg PO QAM 07/29/18 03/08/21 pravastatin 20 mg tablet 20 mg PO QAM 03/27/19 03/08/21 topiramate 50 mg tablet (Topamax) 50 mg PO QAM tab 03/27/19 03/09/21 metoprolol succinate 25 mg 25 mg PO QAM 08/07/19 03/08/21 tablet,extended release 24 hr naproxen sodium 220 mg tablet 220 mg PO Q12H PRN 08/07/19 03/08/21 (Aleve) potassium gluconate 600 mg (99 mg) 99 mg PO QAM 08/07/19 03/08/21 tablet vitamin E 400 unit capsule 400 unit PO QAM 08/07/19 03/09/21 insulin degludec 200 unit/mL (3 160 unit SUBCUT QAM 08/10/19 03/08/21 mL) subcutaneous pen (Tresiba FlexTouch U-200 insulin) cholecalciferol (vitamin D3) 25 25 mcg PO DAILY 04/01/20 03/08/21 mcg (1,000 unit) capsule insulin aspart U-100 100 unit/mL 0 unit SQ TIDM ml 04/01/20 03/08/21 subcutaneous solution (Novolog U-100 Insulin aspart) lisinopril 40 mg tablet 40 mg PO DAILY 04/01/20 03/08/21 prednisone 5 mg tablet 5 mg PO DAILY PRN 04/01/20 03/09/21 psyllium husk 0.52 gram capsule 0.52 g PO DAILY 04/01/20 03/09/21 (Fiber Laxative (psyllium husk)) torsemide 20 mg tablet 20 mg PO DAILY 04/01/20 03/09/21 aspirin 81 mg tablet,delayed 81 mg PO QAM 03/08/21 03/08/21 release lactobacillus combination no.4 3 3,000 mmu cells PO DAILY 03/09/21 03/09/21 billion cell capsule (Probiotic) Previous Rx's Medication Instructions Recorded nystatin 100,000 unit/gram topical 1 applic TOPICAL DAILY 30 Days #30 08/29/20 powder g sulfamethoxazole 800 1 tab PO Q12H 7 Days #14 tab 03/08/21 mg-trimethoprim 160 mg tablet (Bactrim DS) Results & Data (ED) Vital Signs Vital Signs - 24 hr 03/08/21 20:23 03/08/21 20:44 03/08/21 21:00 Temperature 38.1 C H Temperature Source Temporal Artery Scan Pulse Rate 101 H 97 H 99 H Pulse Rate [Right Finger] Pulse Rate from SpO2 Sensor 97 H Respiratory Rate 19 34 H 22 Respiratory Effort / Characteristics Non-Labored Short of Breath Respiratory Depth Normal Respiratory Pattern Regular Blood Pressure 106/36 L 116/47 L Blood Pressure [Right Arm] Blood Pressure Mean 59 70 Blood Pressure Mean [Right Arm] Pulse Oximetry 94 94 94 Oxygen Delivery Method Room Air Room Air Room Air Sepsis Recent Fever Within 48 Hours Yes Sepsis New/Unexplained Change in Mental Status No Sepsis Action Taken by Nursing Previously Notified 03/08/21 21:30 03/08/21 22:00 03/08/21 22:30 Temperature Temperature Source Pulse Rate 96 H 90 Pulse Rate [Right Finger] Pulse Rate from SpO2 Sensor 100 H Respiratory Rate 22 18 Respiratory Effort / Characteristics Non-Labored Non-Labored Respiratory Depth Respiratory Pattern Blood Pressure 99/51 L 114/58 L Blood Pressure [Right Arm] Blood Pressure Mean 67 76 Blood Pressure Mean [Right Arm] Pulse Oximetry 94 94 95 Oxygen Delivery Method Room Air Room Air Sepsis Recent Fever Within 48 Hours Sepsis New/Unexplained Change in Mental Status Sepsis Action Taken by Nursing 03/08/21 23:00 03/08/21 23:35 Temperature Temperature Source Pulse Rate 85 Pulse Rate [Right Finger] 90 Pulse Rate from SpO2 Sensor Respiratory Rate 24 22 Respiratory Effort / Characteristics Non-Labored Respiratory Depth Normal Respiratory Pattern Blood Pressure 114/51 L Blood Pressure [Right Arm] 120/54 L Blood Pressure Mean 72 Blood Pressure Mean [Right Arm] 76 Pulse Oximetry 92 94 Oxygen Delivery Method Room Air Sepsis Recent Fever Within 48 Hours Sepsis New/Unexplained Change in Mental Status Sepsis Action Taken by [facility] Medications Current Medication List: was personally reviewed by me Laboratory Data Attestation: I reviewed the patient's lab results. Result diagrams: 03/08/21 21:47 03/08/21 21:47 Lab Results 03/08/21 03/08/21 03/08/21 Range/Units 21:41 21:41 21:47 WBC 16.70 H (4.8-10.8) K/uL RBC 4.19 L (4.2-5.4) M/uL Hgb 11.9 L (12.0-16.0) g/dL Hct 37.0 (37-47) % MCV 88.3 (80-100) fL MCH 28.4 (25-34) pg MCHC 32.2 (32-36) g/dL RDW Std Deviation 47.5 H (36.4-46.3) fL RDW Coeff of Mitch 14.6 H (11.5-14.5) % Plt Count 186 (130-400) K/uL MPV 11.1 H (7.4-10.4) fL Immature Gran % (Auto) 0.4 % Neut % (Auto) 87.0 % Lymph % (Auto) 6.8 % Lamb % (Auto) 5.6 % Eos % (Auto) 0.1 % Baso % (Auto) 0.1 % Neut # (Auto) 14.54 H (1.4-6.5) K/uL Lymph # (Auto) 1.13 L (1.2-3.4) K/uL Lamb # (Auto) 0.94 H (0.11-0.59) K/uL Eos # (Auto) 0.01 (0-0.5) K/uL Baso # (Auto) 0.02 (0-0.2) K/uL Immature Gran # (Auto) 0.06 H (0.00-0.02) K/uL ESR (0-30) mm/hr PT (9.0-12.0) Seconds INR (0.9-1.1) APTT (21.0-31.0) Seconds PTT Ratio Sodium (136-145) mmol/L Potassium (3.5-5.1) mmol/L Chloride (98-107) mmol/L Carbon Dioxide (21-32) mmol/L Anion Gap (3-11) BUN (7-18) mg/dl Creatinine (0.6-1.2) mg/dl Est Cr Clr Drug Dosing ml/min Est GFR ( Amer) ml/min Est GFR (Non-Af Amer) ml/min BUN/Creatinine Ratio (10-20) Glucose (70-99) mg/dl Lactate (0.4-2.0) mmol/L Calcium (8.5-10.1) mg/dl Magnesium (1.8-2.4) mg/dl Total Bilirubin (0.2-1) mg/dl AST (15-37) U/L ALT (12-78) U/L Alkaline Phosphatase (45-117) U/L Troponin I (0-0.045) ng/ml C-Reactive Protein (0-0.29) mg/dl Total Protein (6.4-8.2) gm/dl Albumin (3.4-5.0) gm/dl Globulin (2.5-4.0) gm/dl Albumin/Globulin Ratio (0.9-2) Procalcitonin (0-0.5) ng/ml Urine Color Urine Appearance (Clear) Urine pH (4.5-7.5) Ur Specific Formoso (1.000-1.030) Urine Protein (Negative) Urine Glucose (UA) (Negative) Urine Ketones (Negative) Urine Blood (Negative) Urine Nitrite (Negative) Urine Bilirubin (Negative) Urine Urobilinogen (Negative) Ur Leukocyte Esterase (Negative) Urine WBC (Auto) (0-5) /hpf Urine RBC (Auto) (0-4) /hpf U Hyaline Cast (Auto) (0-5) /lpf U Epithel Cells (Auto) (0-5) /lpf Urine Bacteria (Auto) (Negative) COVID-19 Eval Order Covid19 at [facility] SARS-CoV-2 (PCR) NEGATIVE (Negative) 03/08/21 03/08/21 03/08/21 Range/Units 21:47 21:47 21:47 WBC (4.8-10.8) K/uL RBC (4.2-5.4) M/uL Hgb (12.0-16.0) g/dL Hct (37-47) % MCV (80-100) fL MCH (25-34) pg MCHC (32-36) g/dL RDW Std Deviation (36.4-46.3) fL RDW Coeff of Mitch (11.5-14.5) % Plt Count (130-400) K/uL MPV (7.4-10.4) fL Immature Gran % (Auto) % Neut % (Auto) % Lymph % (Auto) % Lamb % (Auto) % Eos % (Auto) % Baso % (Auto) % Neut # (Auto) (1.4-6.5) K/uL Lymph # (Auto) (1.2-3.4) K/uL Lamb # (Auto) (0.11-0.59) K/uL Eos # (Auto) (0-0.5) K/uL Baso # (Auto) (0-0.2) K/uL Immature Gran # (Auto) (0.00-0.02) K/uL ESR 28 (0-30) mm/hr PT 10.9 (9.0-12.0) Seconds INR 1.1 (0.9-1.1) APTT 30.2 (21.0-31.0) Seconds PTT Ratio 1.1 Sodium 137 (136-145) mmol/L Potassium 3.9 (3.5-5.1) mmol/L Chloride 111 H (98-107) mmol/L Carbon Dioxide 21 (21-32) mmol/L Anion Gap 5.0 (3-11) BUN 22 H (7-18) mg/dl Creatinine 1.10 (0.6-1.2) mg/dl Est Cr Clr Drug Dosing 65.4 ml/min Est GFR ( Amer) 59.7 ml/min Est GFR (Non-Af Amer) 51.5 ml/min BUN/Creatinine Ratio 20.0 (10-20) Glucose 109 H (70-99) mg/dl Lactate (0.4-2.0) mmol/L Calcium 8.7 (8.5-10.1) mg/dl Magnesium 1.9 (1.8-2.4) mg/dl Total Bilirubin 0.7 (0.2-1) mg/dl AST 20 (15-37) U/L ALT 21 (12-78) U/L Alkaline Phosphatase 77 (45-117) U/L Troponin I 0.020 (0-0.045) ng/ml C-Reactive Protein 11.40 H (0-0.29) mg/dl Total Protein 6.9 (6.4-8.2) gm/dl Albumin 3.0 L (3.4-5.0) gm/dl Globulin 3.9 (2.5-4.0) gm/dl Albumin/Globulin Ratio 0.8 L (0.9-2) Procalcitonin (0-0.5) ng/ml Urine Color Urine Appearance (Clear) Urine pH (4.5-7.5) Ur Specific Formoso (1.000-1.030) Urine Protein (Negative) Urine Glucose (UA) (Negative) Urine Ketones (Negative) Urine Blood (Negative) Urine Nitrite (Negative) Urine Bilirubin (Negative) Urine Urobilinogen (Negative) Ur Leukocyte Esterase (Negative) Urine WBC (Auto) (0-5) /hpf Urine RBC (Auto) (0-4) /hpf U Hyaline Cast (Auto) (0-5) /lpf U Epithel Cells (Auto) (0-5) /lpf Urine Bacteria (Auto) (Negative) COVID-19 Eval Order SARS-CoV-2 (PCR) (Negative) 03/08/21 03/08/21 03/08/21 Range/Units 21:47 21:47 22:10 WBC (4.8-10.8) K/uL RBC (4.2-5.4) M/uL Hgb (12.0-16.0) g/dL Hct (37-47) % MCV (80-100) fL MCH (25-34) pg MCHC (32-36) g/dL RDW Std Deviation (36.4-46.3) fL RDW Coeff of Mitch (11.5-14.5) % Plt Count (130-400) K/uL MPV (7.4-10.4) fL Immature Gran % (Auto) % Neut % (Auto) % Lymph % (Auto) % Lamb % (Auto) % Eos % (Auto) % Baso % (Auto) % Neut # (Auto) (1.4-6.5) K/uL Lymph # (Auto) (1.2-3.4) K/uL Lamb # (Auto) (0.11-0.59) K/uL Eos # (Auto) (0-0.5) K/uL Baso # (Auto) (0-0.2) K/uL Immature Gran # (Auto) (0.00-0.02) K/uL ESR (0-30) mm/hr PT (9.0-12.0) Seconds INR (0.9-1.1) APTT (21.0-31.0) Seconds PTT Ratio Sodium (136-145) mmol/L Potassium (3.5-5.1) mmol/L Chloride (98-107) mmol/L Carbon Dioxide (21-32) mmol/L Anion Gap (3-11) BUN (7-18) mg/dl Creatinine (0.6-1.2) mg/dl Est Cr Clr Drug Dosing ml/min Est GFR ( Amer) ml/min Est GFR (Non-Af Amer) ml/min BUN/Creatinine Ratio (10-20) Glucose (70-99) mg/dl Lactate 0.7 (0.4-2.0) mmol/L Calcium (8.5-10.1) mg/dl Magnesium (1.8-2.4) mg/dl Total Bilirubin (0.2-1) mg/dl AST (15-37) U/L ALT (12-78) U/L Alkaline Phosphatase (45-117) U/L Troponin I (0-0.045) ng/ml C-Reactive Protein (0-0.29) mg/dl Total Protein (6.4-8.2) gm/dl Albumin (3.4-5.0) gm/dl Globulin (2.5-4.0) gm/dl Albumin/Globulin Ratio (0.9-2) Procalcitonin 1.00 H (0-0.5) ng/ml Urine Color Dark Yellow Urine Appearance Cloudy A (Clear) Urine pH 5.5 (4.5-7.5) Ur Specific Form[place] 1.034 H (1.000-1.030) Urine Protein 1+ H (Negative) Urine Glucose (UA) Negative (Negative) Urine Ketones Trace H (Negative) Urine Blood Negative (Negative) Urine Nitrite Negative (Negative) Urine Bilirubin 1+ H (Negative) Urine Urobilinogen Negative (Negative) Ur Leukocyte Esterase 2+ H (Negative) Urine WBC (Auto) >30 H (0-5) /hpf Urine RBC (Auto) 0-4 (0-4) /hpf U Hyaline Cast (Auto) 1-5 (0-5) /lpf U Epithel Cells (Auto) >30 H (0-5) /lpf Urine Bacteria (Auto) Negative (Negative) COVID-19 Eval Order SARS-CoV-2 (PCR) (Negative) Administered Medications Discontinued Medications Acetaminophen (Acetaminophen 325 Mg Tab) 650 mg PO NOW STA Stop: 03/08/21 23:48 Last Admin: 03/08/21 23:55 Dose: Not Given Documented by: [id number] Acetaminophen (Acetaminophen 325 Mg Tab) Confirm Administered Dose 650 mg .ROUTE .STK-MED ONE Stop: 03/08/21 23:53 Last Admin: 03/08/21 23:55 Dose: 650 mg Documented by: [id number] Ceftriaxone Sodium (Rocephin) 1,000 mg in 50 mls @ 100 mls/hr IV NOW STA Stop: 03/08/21 21:34 Last Infusion: 03/08/21 23:30 Dose: 0 mls/hr Documented by: [id number] Admin: 03/08/21 22:52 Dose: 100 mls/hr Documented by: [id number] Vancomycin HCl 2,000 mg/ (Sodium Chloride) 540 mls @ 200 mls/hr IV NOW ONE Stop: 03/08/21 23:46 Last Admin: 03/08/21 23:35 Dose: 200 mls/hr Documented by: [id number] Sodium Chloride (Nss 1000ml) 1,000 mls @ 999 mls/hr IV .Q1H1M ONE Stop: 03/08/21 23:11 Last Infusion: 03/08/21 23:30 Dose: 0 mls/hr Documented by: [id number] Admin: 03/08/21 22:20 Dose: 999 mls/hr Documented by: [id number] Imaging Data Attestation: I personally reviewed and interpreted this imaging study as follows: My Impression: Chest x-ray was obtained in the emergency department. My interpretation is rotated image, bibasilar atelectasis with a small pleural effusion. There is no definite infiltrate. This was compared to a chest x-ray that was done earlier in the day. No definite change was noted. Discharge Plan Visit Data Chief Complaint: Infection Stated Complaint: infection, dr ref ED Provider: Melchor Kwan Discharge Problem: Acute pyelonephritis, Fever, Bacteremia Patient Disposition: Being Evaluated by Hospitalist Forms Stand Alone Forms: My [facility] Prescriptions Prescriptions: No Action ipratropium-albuterol 0.5 mg-3 mg(2.5 mg base)/3 mL solution for nebulization 3 ml INH Q4H PRN (Reason: shortness of breath or wheezing) RF: 0 levothyroxine 100 mcg capsule 100 mcg PO QAM RF: 0 albuterol sulfate 90 mcg/actuation HFA aerosol inhaler 2 puffs INH Q4H PRN (Reason: Shortness Of Breath) RF: 0 diltiazem HCl [Tiazac] 120 mg capsule,extended release 24 hr 120 mg PO QAM RF: 0 dulaglutide [Trulicity] 0.75 mg/0.5 mL pen injector 1 dose SQ KAPLAN RF: 0 Novolog U-100 Insulin aspart 100 unit/mL solution 0 unit SQ TIDM RF: 0 prednisone 5 mg tablet 5 mg PO DAILY PRN (Reason: Shortness Of Breath Or Wheezing) RF: 0 nystatin 100,000 unit/gram powder 1 applic topical DAILY 30 Days Qty: 30 RF: 2 lisinopril 40 mg tablet 40 mg PO DAILY RF: 0 torsemide 20 mg tablet 20 mg PO DAILY RF: 0 psyllium husk [Fiber Laxative (psyllium husk)] 0.52 gram capsule 0.52 g PO DAILY RF: 0 cholecalciferol (vitamin D3) 25 mcg (1,000 unit) capsule 25 mcg PO DAILY RF: 0 topiramate [Topamax] 50 mg tablet 50 mg PO QAM RF: 0 pravastatin 20 mg tablet 20 mg PO QAM RF: 0 Tresiba FlexTouch U-200 200 unit/mL (3 mL) Insulin Pen 160 unit SUBCUT QAM RF: 0 naproxen sodium [Aleve] 220 mg Tablet 220 mg PO Q12H PRN (Reason: Pain) RF: 0 metoprolol succinate 25 mg tablet extended release 24 hr 25 mg PO QAM RF: 0 vitamin E 400 unit Capsule 400 unit PO QAM RF: 0 potassium gluconate 600 mg (99 mg) Tablet 99 mg PO QAM RF: 0 sulfamethoxazole-trimethoprim [Bactrim DS] 800-160 mg tablet 1 tab PO Q12H 7 Days Qty: 14 RF: 0 aspirin [Aspir-Low] 81 mg Tablet,Delayed Release (Dr/Ec) 81 mg PO QAM RF: 0 Probiotic 3 billion cell Capsule 3,000 mmu cells PO DAILY RF: 0 Referrals Referrals: Jhon Leary MD [Primary Care Provider] - Discharge Problem: Fever Qualifiers: Fever type: unspecified Qualified Code(s): R50.9 - Fever, unspecified
[2021-03-08 22:29] LABS: INR 1.1 (0.9-1.1); Partial Thromboplastin Ratio 1.1; Partial Thromboplastin Time 30.2 Seconds (21.0-31.0); Prothrombin Time 10.9 Seconds (9.0-12.0)
[2021-03-08 22:30] LABS: C Reactive Protein 11.4 mg/dl (0-0.29); Calcium 8.7 mg/dl (8.5-10.1); Creatinine Clr Calc Pharmacy 65.4 ml/min; Est GFR (African American) 59.7 ml/min; Est GFR (Non-African American) 51.5 ml/min; Magnesium 1.9 mg/dl (1.8-2.4); Potassium 3.9 mmol/L (3.5-5.1)
[2021-03-08 22:35] LABS: Albumin Globulin Ratio 0.8 (0.9-2); Bilirubin,Total 0.7 mg/dl (0.2-1); Globulin 3.9 gm/dl (2.5-4.0); Total Protein 6.9 gm/dl (6.4-8.2); Troponin I 0.02 ng/ml (0-0.045)
[2021-03-08 22:51] LABS: Appearance Urine Cloudy (Clear); Bacteria Urine Automated Negative (Negative); Blood Urine Negative (Negative); Color Urine Dark Yellow; Epithelial Cell Urine Auto >30 /lpf (0-5); Glucose Urine UA Negative (Negative); Ketones Urine Trace (Negative); Leukocyte Esterase Urine 2+ (Negative); Nitrite Urine Negative (Negative); Protein Urine 1+ (Negative); RBC Urine Automated 0-4 /hpf (0-4); Specific Gravity Urine 1.034 (1.000-1.030); Urobilinogen Urine Negative (Negative); WBC Urine Automated >30 /hpf (0-5); pH Urine 5.5 (4.5-7.5)
[2021-03-08 22:54] LABS: Bilirubin Urine 1+ (Negative)
[2021-03-08] MEDS ORDERED: ACETAMINOPHEN 325 MG TAB PO STA (23:47)
[2021-03-08] MEDS ORDERED: ACETAMINOPHEN 325 MG TAB ONE (23:52)
--- NOTE | 2021-03-09 00:22 | History & Physical Report ---
Date of Service March 09, 2021 Assessment & Plan (1) Septicemia: Plan: Gram-positive cocci in clusters on Gram stain, initial blood cultures ? Left foot cellulitis as source rule out abscess Recent podiatric procedure hx MRSA hx COPD as per records, stable hypertension, stable hx TIA breast cancer right sp surgery status post hormonal therapy, in remission chronic lymphedema on diuretic Rx/history of venous stasis ulcer pituitary microadenoma status post surgery, no recurrence as per recent outpatient CT head DM2 insulin requiring, well-controlled as of recent hemoglobin A1c of 6 last February 2021 past tobacco abuse Medical telemetry IV Vancomycin for now until final blood cultures (from 03/08) resulted Repeat blood cultures in a.m. Left foot CT ID consult at one point RE bacteremia Basal insulin, ISS BG goal 1 10-1 40, carb count coverage DVT prophylaxis. Lovenox subcu Full code Patient's requesting update providers. Mr. Rich Cervantes, contact #[phone]. Text document was generated using [employer] voice recognition software. It may contain grammatical or spelling errors. Kindly contact undersigned for clarification of any documentation item in question. History of Present Illness Chief Complaint: Abnormal blood work Primary Care Provider: Jhon Leary MD History obtained from patient, family, and records. Medical history significant for COPD as per records, PSVT, hypertension, history TIA as per records, hypothyroidism, history of breast cancer right sp surgery status post hormonal therapy, chronic lymphedema on diuretic Rx/history of venous stasis ulcer, pituitary microadenoma status post surgery DM2 insulin requiring, history of MRSA, past tobacco abuse. Last confinement February 2021 for atypical chest pain, hypertension Few days ago patient noted headache symptoms reminiscent of migraine attack along with transient diarrhea. No neck pain. Patient noted back pain hurting more than usual with fever, chills. No unusual leg radiation, no incontinence. No recollection of recent trauma except for having to lie down for an outpatient CAT scan of the head and lungs for her pituitary lesion and lung nodules. Patient seen at the ER yesterday morning. Slight erythema noted on left great toe as per provider exam. 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 No fluctuant abscess. Patient denies unusual pain. ER provider recommended admission but patient declined. Patient discharged on Bactrim course. Blood cultures 1 bottle later grew gram-positive cocci in chains. Patient requested by hospital staff to return to ER. IV Vancomycin and Ceftriaxone given at the ER. Medical History as above SURGERIES: Bilateral tubal ligation, dental surgery, bladder surgery, Bilateral mastectomy, oophorectomy, nasal septum repair, sinus surgery, cholecystectomy, transsphenoidal pituitary tumor removal, tissue grafting/tissue contract associate manager/skin tissue rearrangement FAMILY HISTORY: Heart disease, IBD, colon cancer, uterine cancer, melanoma, asthma PERSONAL AND SOCIAL HISTORY: Past tobacco abuse. No chronic intake of alcoholic beverages. 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 Allergies Allergy/AdvReac Type Severity Reaction Status Date / Time fentanyl Allergy Severe Anaphylaxis Verified 03/09/21 00:08 Quinolones Allergy Intermediate CIPRO-HIVES Verified 03/09/21 00:08 latex Allergy Mild rash, and Verified 03/09/21 00:08 blisters black pepper Allergy Unknown Verified 03/09/21 00:08 perflutren [From Definity] AdvReac Severe Back Pain Verified 03/09/21 00:08 cephalexin [From Keflex] AdvReac Mild constipatio Verified 03/09/21 00:08 n adhesive AdvReac Unknown rash Verified 03/09/21 00:08 atorvastatin AdvReac Unknown Gastrointestinal Verified 03/09/21 00:08 Upset codeine AdvReac Unknown hallucinati Verified 03/09/21 00:08 ons metformin AdvReac Unknown gi upset Verified 03/09/21 00:08 sitagliptin AdvReac Unknown GI SYMPTOMS Verified 02/09/21 07:59 Home Medications Medication Instructions Recorded Confirmed Type albuterol sulfate 90 mcg/actuation 2 puffs INH Q4H PRN gm 07/29/18 03/08/21 Hi story aerosol inhaler diltiazem HCl 120 mg capsule,24 120 mg PO QAM 07/29/18 03/08/21 History hr,extended release (Tiazac) dulaglutide 0.75 mg/0.5 mL 1 dose SQ KAPLAN ml 07/29/18 03/08/21 History subcutaneous pen injector (Trulicity) ipratropium 0.5 mg-albuterol 3 mg 3 ml INH Q4H PRN ml 07/29/18 03/08/21 History (2.5 mg base)/3 mL nebulization soln levothyroxine 100 mcg capsule 100 mcg PO QAM 07/29/18 03/08/21 History pravastatin 20 mg tablet 20 mg PO QAM 03/27/19 03/08/21 History topiramate 50 mg tablet (Topamax) 50 mg PO QAM tab 03/27/19 03/09/21 History metoprolol succinate 25 mg 25 mg PO QAM 08/07/19 03/08/21 History tablet,extended release 24 hr naproxen sodium 220 mg tablet 220 mg PO Q12H PRN 08/07/19 03/08/21 History (Aleve) potassium gluconate 600 mg (99 mg) 99 mg PO QAM 08/07/19 03/08/21 History tablet vitamin E 400 unit capsule 400 unit PO QAM 08/07/19 03/09/21 History insulin degludec 200 unit/mL (3 160 unit SUBCUT QAM 08/10/19 03/08/21 History mL) subcutaneous pen (Tresiba FlexTouch U-200 insulin) cholecalciferol (vitamin D3) 25 25 mcg PO DAILY 04/01/20 03/08/21 History mcg (1,000 unit) capsule insulin aspart U-100 100 unit/mL 0 unit SQ TIDM ml 04/01/20 03/08/21 History subcutaneous solution (Novolog U-100 Insulin aspart) lisinopril 40 mg tablet 40 mg PO DAILY 04/01/20 03/08/21 History prednisone 5 mg tablet 5 mg PO DAILY PRN 04/01/20 03/09/21 History psyllium husk 0.52 gram capsule 0.52 g PO DAILY 04/01/20 03/09/21 History (Fiber Laxative (psyllium husk)) torsemide 20 mg tablet 20 mg PO DAILY 04/01/20 03/09/21 History nystatin 100,000 unit/gram topical 1 applic TOPICAL DAILY 30 Days #30 08/29/20 03/08/21 Rx powder g aspirin 81 mg tablet,delayed 81 mg PO QAM 03/08/21 03/08/21 History release sulfamethoxazole 800 1 tab PO Q12H 7 Days #14 tab 03/08/21 03/09/21 Rx mg-trimethoprim 160 mg tablet (Bactrim DS) lactobacillus combination no.4 3 3,000 mmu cells PO DAILY 03/09/21 03/09/21 History billion cell capsule (Probiotic) Past Med/Surg History Medical History Albuminuria Allergic rhinitis Anxiety Arthritis Asthma Atypical chest pain Background diabetic retinopathy associated with type 2 diabetes mellitus Benign neoplasm of colon Bradycardia Breast cancer Carpal tunnel syndrome COPD (chronic obstructive pulmonary disease) Diabetes type 2, controlled Diabetic nephropathy associated with type 2 diabetes mellitus Dyslipidemia Eustachian tube dysfunction Eustachian tube dysfunction Nnamdi's thyroiditis Hypertension Hypertrophy of both inferior nasal turbinates Hypothyroidism IBS (irritable bowel syndrome) Lumbar canal stenosis Lymphedema Nasal septal deviation Neoplasm of sphenoid sinus Nephrolithiasis Obesity PAC (premature atrial contraction) Pituitary macroadenoma with extrasellar extension PSVT (paroxysmal supraventricular tachycardia) Right sacral radiculopathy Sensorineural hearing loss Tardy ulnar nerve palsy TIA (transient ischemic attack) Type 2 diabetes mellitus with complications Type 2 diabetes mellitus, with long-term current use of insulin Urinary frequency Urinary urgency Vaginal candidiasis Venous stasis ulcer Vitiligo Surgical History H/O bilateral mastectomy H/O bladder repair surgery H/O colonoscopy H/O cystoscopy H/O knee surgery H/O sinus surgery History of carpal tunnel release History of dental surgery History of dilatation and curettage History of salpingo-oophorectomy S/P cholecystectomy S/P laparoscopic cholecystectomy S/P mastectomy S/P nasal surgery S/P oophorectomy S/P tubal ligation Surgery, elective Mid-urethral sling placement Family History Father Coronary heart disease Hypertension Mother Malignant melanoma Son Asthma Grandfather (Maternal) Colorectal cancer Grandmother (Maternal) Uterine cancer Other Diabetes Heart disease Social History Smoking Status: Never smoker packs per day: 2; Years Smoked: 30; Hx Alcohol Use: No Hx Substance Use: No Preferred Language: Japanese Communication Ability: Effective Visual Impairment: No Limitations Hearing Ability: Normal Turbine Inspector Required: No Beliefs That Will Affect Care: None marital status: Current Living Situation: Spouse current occupational status: retired Other Information That Helps Us Care for You: No Feels Safe at Home: Yes Safety Concerns: Feels Safe At This Time Assistive Devices: None Review of Systems Review of Systems: As per HPI, all 10 systems reviewed, all other ROS negative Physical Exam Physical Exam: GENERAL: Slightly uncomfortable, morbidly obese, pleasant, no respiratory distress SKIN: Normal color, warm HEENT: [place] palpebral conjunctivae, no ptosis, dry buccal mucosa NECK : Supple, short neck, no tenderness CHEST : CTA, no tenderness HEART : RRR, no obvious murmurs ABDOMEN: Some distention, nontender BACK : Low back tenderness, negative straight leg raise test EXTREMITIES : bilateral LE swelling wrapped in dressing, left foot erythematous swelling without overt tenderness NEUROLOGIC : Coherent, no facial asymmetry, no other gross focality Results & Data Results & Data ([facility]) Vital Signs (Past 12 Hours) Vital Signs Temp Pulse Pulse Resp BP BP Pulse Ox 03/08/21 23:35 90 22 120/54 L 94 03/08/21 23:00 85 24 114/51 L 92 03/08/21 22:30 90 18 114/58 L 95 03/08/21 22:00 96 H 22 99/51 L 94 03/08/21 21:30 94 03/08/21 21:00 99 H 22 116/47 L 94 03/08/21 20:44 97 H 34 H 94 03/08/21 20:23 38.1 C H 101 H 19 106/36 L 94 Laboratory Results Laboratory Results WBC 16.70 K/uL (4.8-10.8) H 03/08/21 21:47 RBC 4.19 M/uL (4.2-5.4) L 03/08/21 21:47 Hgb 11.9 g/dL (12.0-16.0) L 03/08/21 21:47 Hct 37.0 % (37-47) 03/08/21 21:47 MCV 88.3 fL (80-100) 03/08/21 21:47 MCH 28.4 pg (25-34) 03/08/21 21:47 MCHC 32.2 g/dL (32-36) 03/08/21 21:47 RDW Std Deviation 47.5 fL (36.4-46.3) H 03/08/21 21:47 RDW Coeff of Mitch 14.6 % (11.5-14.5) H 03/08/21 21:47 Plt Count 186 K/uL (130-400) 03/08/21 21:47 MPV 11.1 fL (7.4-10.4) H 03/08/21 21:47 Immature Gran % (Auto) 0.4 % 03/08/21 21:47 Neut % (Auto) 87.0 % 03/08/21 21:47 Lymph % (Auto) 6.8 % 03/08/21 21:47 [place] % (Auto) 5.6 % 03/08/21 21:47 Eos % (Auto) 0.1 % 03/08/21 21:47 Baso % (Auto) 0.1 % 03/08/21 21:47 Neut # (Auto) 14.54 K/uL (1.4-6.5) H 03/08/21 21:47 Lymph # (Auto) 1.13 K/uL (1.2-3.4) L 03/08/21 21:47 [place] # (Auto) 0.94 K/uL (0.11-0.59) H 03/08/21 21:47 Eos # (Auto) 0.01 K/uL (0-0.5) 03/08/21 21:47 Baso # (Auto) 0.02 K/uL (0-0.2) 03/08/21 21:47 Immature Gran # (Auto) 0.06 K/uL (0.00-0.02) H 03/08/21 21:47 ESR 28 mm/hr (0-30) 03/08/21 21:47 PT 10.9 Seconds (9.0-12.0) 03/08/21 21:47 INR 1.1 (0.9-1.1) 03/08/21 21:47 APTT 30.2 Seconds (21.0-31.0) 03/08/21 21:47 PTT Ratio 1.1 03/08/21 21:47 Sodium 137 mmol/L (136-145) 03/08/21 21:47 Potassium 3.9 mmol/L (3.5-5.1) 03/08/21 21:47 Chloride 111 mmol/L (98-107) H 03/08/21 21:47 Carbon Dioxide 21 mmol/L (21-32) 03/08/21 21:47 Anion Gap 5.0 (3-11) 03/08/21 21:47 BUN 22 mg/dl (7-18) H 03/08/21 21:47 Creatinine 1.10 mg/dl (0.6-1.2) 03/08/21 21:47 Est Cr Clr Drug Dosing 65.4 ml/min 03/08/21 21:47 Est GFR ( Amer) 59.7 ml/min 03/08/21 21:47 Est GFR (Non-Af Amer) 51.5 ml/min 03/08/21 21:47 BUN/Creatinine Ratio 20.0 (10-20) 03/08/21 21:47 Glucose 109 mg/dl (70-99) H 03/08/21 21:47 Lactate 0.7 mmol/L (0.4-2.0) 03/08/21 21:47 Calcium 8.7 mg/dl (8.5-10.1) 03/08/21 21:47 Magnesium 1.9 mg/dl (1.8-2.4) 03/08/21 21:47 Total Bilirubin 0.7 mg/dl (0.2-1) 03/08/21 21:47 AST 20 U/L (15-37) 03/08/21 21:47 ALT 21 U/L (12-78) 03/08/21 21:47 Alkaline Phosphatase 77 U/L (45-117) 03/08/21 21:47 Troponin I 0.020 ng/ml (0-0.045) 03/08/21 21:47 C-Reactive Protein 11.40 mg/dl (0-0.29) H 03/08/21 21:47 Total Protein 6.9 gm/dl (6.4-8.2) 03/08/21 21:47 Albumin 3.0 gm/dl (3.4-5.0) L 03/08/21 21:47 Globulin 3.9 gm/dl (2.5-4.0) 03/08/21 21:47 Albumin/Globulin Ratio 0.8 (0.9-2) L 03/08/21 21:47 Procalcitonin 1.00 ng/ml (0-0.5) H 03/08/21 21:47 Urine Color Dark Yellow 03/08/21 22:10 Urine Appearance Cloudy (Clear) A 03/08/21 22:10 Urine pH 5.5 (4.5-7.5) 03/08/21 22:10 Ur Specific [place] 1.034 (1.000-1.030) H 03/08/21 22:10 Urine Protein 1+ (Negative) H 03/08/21 22:10 Urine Glucose (UA) Negative (Negative) 03/08/21 22:10 Urine Ketones Trace (Negative) H 03/08/21 22:10 Urine Blood Negative (Negative) 03/08/21 22:10 Urine Nitrite Negative (Negative) 03/08/21 22:10 Urine Bilirubin 1+ (Negative) H 03/08/21 22:10 Urine Urobilinogen Negative (Negative) 03/08/21 22:10 Ur Leukocyte Esterase 2+ (Negative) H 03/08/21 22:10 Urine WBC (Auto) >30 /hpf (0-5) H 03/08/21 22:10 Urine RBC (Auto) 0-4 /hpf (0-4) 03/08/21 22:10 U Hyaline Cast (Auto) 1-5 /lpf (0-5) 03/08/21 22:10 U Epithel Cells (Auto) >30 /lpf (0-5) H 03/08/21 22:10 Urine Bacteria (Auto) Negative (Negative) 03/08/21 22:10 COVID-19 Eval Order Covid19 at [facility] 03/08/21 21:41 SARS-CoV-2 (PCR) NEGATIVE (Negative) 03/08/21 21:[address] head initial read: No acute intracranial hemorrhage, extra-axial fluid collection or mass-effect. Grosslystable appearance of the sella and suprasellar region compared to the previous exam. Limited assessment for pituitarypathologyon CT. Acontrast-enhanced MRI of the sella/pituitarycould be performed to better evaluate if clinicallyindicated. CT lumbar spine initial read: No acute osseous abnormality. Unilateral right L5 pars defect with sclerosis of the left L5-S1 facetswhich is likelycompensatory. Mild multilevel degenerative changes of the spine. CT abdomen pelvis initial read: No acute findings in the abdomen or pelvis. Mild atelectasis at the lung bases. Status post cholecystectomy. Hepatomegaly. Spleen likely. Mild atrophyof the pancreas. Bilateral renal cysts. Redemonstration of mild extension of the urinarybladder along the right pelvic sidewall which could represent ligamentous laxityversus a bladder diverticulum. Punctate nonobstructing bilateral renal calculi. No significant bowel wall thickening or evidence of bowel obstruction. Diverticulosis of the sigmoid and descending colon without evidence of acute diverticulitis. Unremarkable appendix. No free air. Unilateral right L5 pars defect, as seen previously. Chest x-ray as per my interpretation rotation, atelectasis EKG as per my interpretation : Rate 85, NSR, normal axis, T wave abnormalities lateral and septal leads, inferior infarct
[2021-03-09] MEDS ORDERED: KETOROLAC TROMETHAMINE 15 MG/ML VIAL IV STA (00:23)
[2021-03-09] MEDS ORDERED: OPTIRAY 320 100ml IV ONE (01:08)
[2021-03-09] MEDS ORDERED: NSS + 20MEQ KCL 20 MEQ/1,000 ML BAG IV ONE (02:05)
[2021-03-09] MEDS ORDERED: GLUCOSE 40% GEL 15 GM TUBE PO PRN (03:50)
[2021-03-09] MEDS ORDERED: ACETAMINOPHEN 325 MG TAB PO PRN (03:50)
[2021-03-09] MEDS ORDERED: GLUCOSE 10 TABS/TUBE PO PRN (03:50)
[2021-03-09] MEDS ORDERED: CARBOHYDRATES FOR HYPOGLYCEMIA PO PRN (03:50)
[2021-03-09] MEDS ORDERED: PROMETHAZINE HCL 12.5 MG in SODIUM CHLORIDE 0.9% 50 ML IV PRN (03:50)
[2021-03-09] MEDS ORDERED: GLUCAGON FOR INJ 1 MG VIAL SQ PRN (03:50)
[2021-03-09] MEDS ORDERED: DEXTROSE 50% 50 ML SYRINGE IV PRN (03:50)
[2021-03-09] MEDS ORDERED: MoRPHine SULFATE 4 MG/ML 1 ML CARP\\VIAL IV PRN (03:50)
[2021-03-09] MEDS ORDERED: oxyCODONE HCL IR 5 MG TAB (IMMEDIATE RELEASE) PO PRN (03:50)
[2021-03-09] MEDS: INSULIN ASPART 100 UNITS/ML 3 ML PEN SC SCH ×5 (04:39→21:17)
[2021-03-09] MEDS: LEVOTHYROXINE SODIUM 100 MCG TABLET PO SCH (05:52)
[2021-03-09 05:56] LABS: Basophils # (auto) 0.01 K/uL (0-0.2); Basophils % (auto) 0.1 %; Eosinophils # (auto) 0.01 K/uL (0-0.5); Eosinophils % (auto) 0.1 %; Hematocrit (blood only) 33.9 % (37-47); Hemoglobin 10.9 g/dL (12.0-16.0); Immature Granulocytes # (auto) 0.02 K/uL (0.00-0.02); Immature Granulocytes % (auto) 0.2 %; Lymphocytes # (auto) 0.99 K/uL (1.2-3.4); Lymphocytes % (auto) 9.5 %; Mean Corpuscular Hemoglobin 28.5 pg (25-34); Mean Corpuscular Hgb Conc 32.2 g/dL (32-36); Mean Corpuscular Volume 88.7 fL (80-100); Mean Platelet Volume 10.7 fL (7.4-10.4); Monocytes # (auto) 0.66 K/uL (0.11-0.59); Monocytes % (auto) 6.3 %; Neutrophils # (auto) 8.76 K/uL (1.4-6.5); Neutrophils % (auto) 83.8 %; Platelet Count 170 K/uL (130-400); RDW Coefficient of Variation 15.2 % (11.5-14.5); RDW Standard Deviation 49.3 fL (36.4-46.3); Red Blood Count 3.82 M/uL (4.2-5.4); White Blood Count 10.45 K/uL (4.8-10.8)
[2021-03-09 06:27] LABS: BUN Creatinine Ratio 18.2 (10-20); Calcium 8.1 mg/dl (8.5-10.1); Est GFR (African American) 51.7 ml/min; Est GFR (Non-African American) 44.6 ml/min; Potassium 4.1 mmol/L (3.5-5.1)
--- NOTE | 2021-03-09 07:03 | CT Scan Report ---
CT head/brain w con CLINICAL HISTORY: roberson, hx pit tumor COMPARISON STUDY: Head CT August 10, 2019. MRI of the brain August 07, 2019. Pituitary MRI January 21. TECHNIQUE: Axial images of the head were obtained following intravenous injection of 93 cc of Optiray 320 IV. Automated exposure control was utilized for the study. A dose lowering technique was utiliz ed adhering to the principles of ALARA. FINDINGS: No acute intracranial hemorrhage is identified although sensitivity is diminished on this c ontrast-enhanced exam. Ventricular system is normal. Basal cisterns are patent. There are no extra-ax ial collections. There are no findings to suggest acute dural sinus thrombosis or acute territorial i nfarct. Mucosal retention cyst within left maxillary sinus is noted. There are postoperative findings within the sinuses and the sella. These are suboptimally assessed on this CT but appear grossly stab le since CT of August 10, 2019 and MRI of January 22, 2020. There are no significant calvarial abnormali ties. IMPRESSION: 1. No acute intracranial findings. 2. Grossly stable postoperative findings within the sella, suboptimally assessed by CT. Pituitary pro tocol MRI could be obtained as indicated. ACT 112: Negative or not required by law. Electronically signed by: Nadeem Patton M.D. 03/09/2021 7:02 AM
--- NOTE | 2021-03-09 07:50 | XRay Report ---
XR chest 1V portable INDICATION: MN ^SEPSIS ^IV @ 0905. TECHNIQUE: Single frontal radiograph of the chest was obtained. Comparison: None available at the time of this dictation. FINDINGS: No lines and tubes are seen. The cardiomediastinal silhouette is normal. Bibasilar atelectasis is not ed. No evidence of pleural effusion or pneumothorax. IMPRESSION: No acute chest disease. ACT 112: Negative or not required by law. Electronically signed by: Pacheco Pittman M.D. 03/09/2021 7:49 AM
--- NOTE | 2021-03-09 07:54 | CT Scan Report ---
CT OF THE ABDOMEN AND PELVIS WITH CONTRAST CLINICAL HISTORY: Abdominal and back pain. COMPARISON STUDY: CT of the abdomen and pelvis August 27, 2017. TECHNIQUE: Following IV administration of 93 mL of Optiray, axial images of the abdomen and pelvis we re obtained from the lung bases to the proximal femurs. Images were reviewed in the axial, sagittal, and coronal planes. IV contrast was administered without complication. Automated exposure control wa s utilized for the study. A dose lowering technique was utilized adhering to the principles of ALARA . FINDINGS: Lung bases are unremarkable. No pneumatosis, free air or portal venous gas is present. Ther e is hepatic steatosis. There is no biliary ductal dilatation status post cholecystectomy. Mild splen omegaly is noted. The adrenal glands and pancreas are unremarkable. Several water attenuation right r enal lesions reflect cysts. There are multiple subcentimeter bilateral renal lesions which are too sm all to characterize. Small bilateral renal calculi are present. There is no hydronephrosis. There are no ureteral calculi. There is no evidence for a bowel obstruction. Colonic diverticulosis is noted w ithout evidence for acute diverticulitis. There are several mildly enlarged lymph nodes within the ab domen and pelvis. Index aortocaval lymph node on image 173 of 471 measures 1.3 x 1 cm. Index left com mon iliac node on image 264 measures 1.9 x 1.1 cm. There is heterogeneity and enlargement of the uter ine fundus. IMPRESSION: 1. Heterogeneity and enlargement of the uterine fundus. This could simply represent a fibroid however an endometrial neoplasm could appear similar. Correlation with history of postmenopausal bleeding an d pelvic ultrasound is recommended. Findings will be called/faxed to the ordering provider at time of dictation. 2. Several mildly enlarged paraaortic/aortocaval and left iliac chain lymph nodes. These are nonspeci fic. Lymphoproliferative process or metastatic disease cannot be excluded. Short-term follow-up CT of the abdomen and pelvis in 6 months is recommended. 3. Bilateral nephrolithiasis. 4. No bowel obstruction. ACT 112: Negative or not required by law. Electronically signed by: Nadeem Patton M.D. 03/09/2021 7:52 AM
[2021-03-09] MEDS: ADVANCED PROBIOTIC 1250 MG CAPSULE PO SCH (08:17)
[2021-03-09] MEDS: METOPROLOL SUCC 25MG EXT REL TAB PO SCH (08:18)
[2021-03-09] MEDS: ENOXAPARIN INJ 40 MG/0.4 ML SYR SQ SCH (08:18)
[2021-03-09] MEDS: TOPIRAMATE 50 MG TAB PO SCH (08:18)
[2021-03-09] MEDS: PRAVASTATIN SOD 20 MG TAB PO SCH (08:19)
[2021-03-09] MEDS: ASPIRIN 81 MG ECTAB PO SCH (08:19)
[2021-03-09] MEDS: dilTIAZem ER 120 MG CAPCR PO SCH (08:19)
--- NOTE | 2021-03-09 08:24 | CT Scan Report ---
CT lumbar spine w con HISTORY: Low back pain TECHNIQUE: Multiaxial CT images of the lumbar spine were performed and reformatted in the sagittal an d coronal plane following the use of intravenous contrast. COMPARISON STUDY: None. FINDINGS: Grade 1 retrolisthesis of L2 on L3 and L3 on L4. Mild disc space narrowing at L2-L3 and L3- L4. There is a right L5 pars defect [id number] facet degenerative changes at the left L5-S1 lev el. No fractures within the lumbar spine. The visualized sacrum is intact. Paravertebral soft tissues are unremarkable. Mild bilateral neural foraminal narrowing at L2-L3 and L3-L4. No significant centr al canal narrowing by CT technique. IMPRESSION: No fractures within the lumbar spine. Degenerative changes as described above. ACT 112: Negative or not required by law. Electronically signed by: Torrey Goel M.D. 03/09/2021 8:22 AM
--- NOTE | 2021-03-09 08:27 | CT Scan Report ---
LEFT FOOT CT CT DOSE: 147.12 mGy.cm HISTORY: L foot swelling TECHNIQUE: Multiaxial CT images of the left foot were performed and reformatted in the sagittal and c oronal plane without the use of contrast. A dose lowering technique was utilized adhering to the adonis nciMaxx. COMPARISON: None. FINDINGS: No fracture or dislocation within the left foot. No erosive changes to suggest an osteomyel itis. Extensive subcutaneous edema most pronounced within the dorsum of the forefoot. Plantar heel sp ur is noted. IMPRESSION: Extensive subcutaneous edema within the left foot. No fractures or evidence for osteomyelitis. ACT 112: Negative or not required by law. Electronically signed by: Torrey Goel M.D. 03/09/2021 8:25 AM
[2021-03-09] MEDS ORDERED: lisinopril 40 MG TAB PO SCH (09:00)
[2021-03-09] MEDS: INSULIN GLARGINE SOLOSTAR 100 UNITS/ML 3 ML PEN SC SCH ×2 (09:39→21:17)
--- NOTE | 2021-03-09 11:28 | Ultrasound Report ---
US pelvic complete INDICATION: MN ^Y ^enlargement of the uterine fundus.. TECHNIQUE: Real-time transvaginal sonographic images of the pelvic contents were obtained. Comparison: None available at the time of this dictation. FINDINGS: The uterus measures 9.8 x 5.0 x 6.0 cm. The appearance of the uterus is normal. The endometrial cavit y echo stripe measures 2.2 cm in thickness. Endometrium is thickened and heterogeneous in appearance and a possible hypoechoic area is seen measuring 1.9 x 1.8 x 1.4 cm. Both adnexa were visualized. The right ovary measures 2.4 x 1.9 x 1.4 cm. The left ovary. There was no fluid in the cul-de-sac. IMPRESSION: Heterogeneous thickening of the endometrium, concerning for endometrial cancer versus hyperplasia in this postmenopausal patient. ACT 112: Negative or not required by law. Electronically signed by: Pacheco Pittman M.D. 03/09/2021 11:27 AM
[2021-03-09] MEDS ORDERED: ceFAZolin 2000MG 2,000 MG/15 ML SYR IV ONE (13:30)
[2021-03-09] MEDS: ceFAZolin 2000MG 2,000 MG/15 ML SYR IV SCH (23:17)
--- NOTE | 2021-03-09 23:40 | Communication Note ---
Date of Service: March 09, 2021 Pt was seen and examined. Sitting in chair with no acute distress. She said that she is not having any chills and fever. CT abd/pelvis showed heterogeneity and enlargement of the uterine fundus. This could simply represent a fibroid however an endometrial neoplasm could appear similar. Correlation with history of postmenopausal bleeding and pelvic ultrasound is recommended. Findings will be called/faxed to the ordering provider at time of dictation. Several mildly enlarged paraaortic/aortocaval and left iliac chain lymph nodes. Left foot CT showed extensive subcutaneous edema within the left foot. No fractures or evidence for osteomyelitis. Pelvis u/s showed Heterogeneous thickening of the endometrium, concerning for endometrial cancer versus hyperplasia in this postmenopausal patient. Continue IV with Cefazolin IV. blood cx on 03/08 grew gram positive cocci. Will get an echo. Will follow repeat cx. Will consult ortho to evaluate for any I/D. Will consult ID. continue monitor closely MD Damaris
[2021-03-10] MEDS: ceFAZolin 2000MG 2,000 MG/15 ML SYR IV SCH ×3 (06:24→21:09)
[2021-03-10] MEDS: LEVOTHYROXINE SODIUM 100 MCG TABLET PO SCH (07:05)
[2021-03-10] MEDS: INSULIN ASPART 100 UNITS/ML 3 ML PEN SC SCH ×4 (08:51→21:09)
[2021-03-10] MEDS: INSULIN GLARGINE SOLOSTAR 100 UNITS/ML 3 ML PEN SC SCH ×2 (08:52→21:09)
[2021-03-10] MEDS: ADVANCED PROBIOTIC 1250 MG CAPSULE PO SCH (09:24)
[2021-03-10] MEDS: ASPIRIN 81 MG ECTAB PO SCH (09:24)
[2021-03-10] MEDS: dilTIAZem ER 120 MG CAPCR PO SCH (09:24)
[2021-03-10] MEDS: ENOXAPARIN INJ 40 MG/0.4 ML SYR SQ SCH (09:24)
[2021-03-10] MEDS: METOPROLOL SUCC 25MG EXT REL TAB PO SCH (09:25)
[2021-03-10] MEDS: TOPIRAMATE 50 MG TAB PO SCH (09:25)
[2021-03-10] MEDS: PRAVASTATIN SOD 20 MG TAB PO SCH (09:25)
--- NOTE | 2021-03-10 11:56 | Podiatry Consultation ---
Date of Consultation March 10, 2021 Assessment & Plan (1) Septicemia: (2) Bacteremia: (3) Diabetes type 2, controlled: (4) Lymphedema: continue IV abx per med recs rec daily dressings as stated above will arrange f/u next week after d/c History of Present Illness Reason for Consultation: cellulitis left toe/foot/lower extremity Attending Physician: Katia Ocampo MD History of Present Illness Patient is a very pleasant 70 year old female known to myself from clinic, last seen SaturdayMar 01 in clinic. Patient stated to me today at bedside, seen at 1130 am, also seen by our PA DAVON Ventura this morning. Patient stated to me she went to the ED due to night sweats/chills Saturday, she stated she went to the ED and was seen, took blood cultures and was d/c, then called to go back to the hospital due to positive blood cultures. I have clinical photos in my chart from last Saturday and the left 2nd toe had a blister dorsally, I inspected the area again today and the blister was resolved, but due to the patient's severe edema in her legs/toes/feet, I do feel that the toe has healed the blister, still si gnificant swelling slightly increased vs her baseline but there was maceration present from drainage, likely related to her lymphedema. I feel possibly the source of her infection may be from her lymphedema, perhaps from the second toe however I note this is actually better looking today vs last week, I had patient on clinda then changed to Bactrim last week as well due to the blister. Currently patient should continue IV abx for the positive blood cultures and rest the toe and elevate, use compression hose to legs, I suggested a dressing to the dorsal aspect of the left foot with Aquacel silver ( patient had at bedside ) and foam with gauze, please change this daily due to the drainage. I will arrange for patient to have follow up with me in the office next week Allergies Allergy/AdvReac Type Severity Reaction Status Date / Time fentanyl Allergy Severe Anaphylaxis Verified 03/09/21 00:08 Quinolones Allergy Intermediate CIPRO-HIVES Verified 03/09/21 00:08 latex Allergy Mild rash, and Verified 03/09/21 00:08 blisters black pepper Allergy Unknown Verified 03/09/21 00:08 perflutren [From Definity] AdvReac Severe Back Pain Verified 03/09/21 00:08 cephalexin [From Keflex] AdvReac Mild constipatio Verified 03/09/21 00:08 n adhesive AdvReac Unknown rash Verified 03/09/21 00:08 atorvastatin AdvReac Unknown Gastrointestinal Verified 03/09/21 00:08 Upset codeine AdvReac Unknown hallucinati Verified 03/09/21 00:08 ons metformin AdvReac Unknown gi upset Verified 03/09/21 00:08 sitagliptin AdvReac Unknown GI SYMPTOMS Verified 02/09/21 07:59 Home Medications Medication Instructions Recorded Confirmed Type albuterol sulfate 90 mcg/actuation 2 puffs INH Q4H PRN gm 07/29/18 03/08/21 History aerosol inhaler diltiazem HCl 120 mg capsule,24 120 mg PO QAM 07/29/18 03/08/21 History hr,extended release (Tiazac) dulaglutide 0.75 mg/0.5 mL 1 dose SQ KAPLAN ml 07/29/18 03/08/21 History subcutaneous pen injector (Trulicity) ipratropium 0.5 mg-albuterol 3 mg 3 ml INH Q4H PRN ml 07/29/18 03/08/21 History (2.5 mg base)/3 mL nebulization soln levothyroxine 100 mcg capsule 100 mcg PO QAM 07/29/18 03/08/21 History pravastatin 20 mg tablet 20 mg PO QAM 03/27/19 03/08/21 History topiramate 50 mg tablet (Topamax) 50 mg PO QAM tab 03/27/19 03/09/21 History metoprolol succinate 25 mg 25 mg PO QAM 08/07/19 03/08/21 History tablet,extended release 24 hr naproxen sodium 220 mg tablet 220 mg PO Q12H PRN 08/07/19 03/08/21 History (Aleve) potassium gluconate 600 mg (99 mg) 99 mg PO QAM 08/07/19 03/08/21 History tablet vitamin E 400 unit capsule 400 unit PO QAM 08/07/19 03/09/21 History insulin degludec 200 unit/mL (3 160 unit SUBCUT QAM 03/09/20 10/06/21 History mL) subcutaneous pen (Tresiba FlexTouch U-200 insulin) cholecalciferol (vitamin D3) 25 25 mcg PO DAILY 04/01/20 03/08/21 History mcg (1,000 unit) capsule insulin aspart U-100 100 unit/mL 0 unit SQ TIDM ml 04/01/20 03/08/21 History subcutaneous solution (Novolog U-100 Insulin aspart) lisinopril 40 mg tablet 40 mg PO DAILY 04/01/20 03/08/21 History prednisone 5 mg tablet 5 mg PO DAILY PRN 04/01/20 03/09/21 History psyllium husk 0.52 gram capsule 0.52 g PO DAILY 04/01/20 03/09/21 History (Fiber Laxative (psyllium husk)) torsemide 20 mg tablet 20 mg PO DAILY 04/01/20 03/09/21 History nystatin 100,000 unit/gram topical 1 applic TOPICAL DAILY 30 Days #30 08/29/20 03/08/21 Rx powder g aspirin 81 mg tablet,delayed 81 mg PO QAM 03/08/21 03/08/21 History release sulfamethoxazole 800 1 tab PO Q12H 7 Days #14 tab 03/08/21 03/09/21 Rx mg-trimethoprim 160 mg tablet (Bactrim DS) lactobacillus combination no.4 3 3,000 mmu cells PO DAILY 03/09/21 03/09/21 History billion cell capsule (Probiotic) Patient History Medical History Albuminuria Allergic rhinitis Anxiety Arthritis Asthma Atypical chest pain Background diabetic retinopathy associated with type 2 diabetes mellitus Benign neoplasm of colon Bradycardia Breast cancer Carpal tunnel syndrome COPD (chronic obstructive pulmonary disease) Diabetes type 2, controlled Diabetic nephropathy associated with type 2 diabetes mellitus Dyslipidemia Eustachian tube dysfunction Eustachian tube dysfunction Nnamdi's thyroiditis Hypertension Hypertrophy of both inferior nasal turbinates Hypothyroidism IBS (irritable bowel syndrome) Lumbar canal stenosis Lymphedema Nasal septal deviation Neoplasm of sphenoid sinus Nephrolithiasis Obesity PAC (premature atrial contraction) Pituitary macroadenoma with extrasellar extension PSVT (paroxysmal supraventricular tachycardia) Right sacral radiculopathy Sensorineural hearing loss Tardy ulnar nerve palsy TIA (transient ischemic attack) Type 2 diabetes mellitus with complications Type 2 diabetes mellitus, with long-term current use of insulin Urinary frequency Urinary urgency Vaginal candidiasis Venous stasis ulcer Vitiligo Surgical History H/O bilateral mastectomy H/O bladder repair surgery H/O colonoscopy H/O cystoscopy H/O knee surgery H/O sinus surgery History of carpal tunnel release History of dental surgery History of dilatation and curettage History of salpingo-oophorectomy S/P cholecystectomy S/P laparoscopic cholecystectomy S/P mastectomy S/P nasal surgery S/P oophorectomy S/P tubal ligation Surgery, elective Mid-urethral sling placement Family History Father Coronary heart disease Hypertension Mother Malignant melanoma Son Asthma Grandfather (Maternal) Colorectal cancer Grandmother (Maternal) Uterine cancer Other Diabetes Heart disease Social History Smoking Status: Never smoker packs per day: 2; Years Smoked: 30; Hx Alcohol Use: No Hx Substance Use: No Preferred Language: Nicaraguan Communication Ability: Effective Visual Impairment: No Limitations Hearing Ability: Normal Rig Supervisor Required: No Beliefs That Will Affect Care: None marital status: Current Living Situation: Spouse current occupational status: retired Other Information That Helps Us Care for You: No Feels Safe at Home: Yes Safety Concerns: Feels Safe At This Time Assistive Devices: None Physical Exam Skin: significant swelling left lower extremity, no open wounds/ulcer present but maceration present on the dorsal left foot , patient was wearing a slipper but I have concerns that the maceration/drainage isn't improving with the use of the slipper. I removed the slipper and inspected the foot/second toe - maceration present, I applied aquacel with foam/gauze and if possible will place order for family medi cine to apply dressings daily Results & Data ([facility]) Vital Signs (Past 12 Hours) Vital Signs Temp Pulse Pulse Resp BP Pulse Ox 03/10/21 08:12 36.6 C 72 20 132/76 96 03/10/21 07:12 66 03/10/21 03:25 36.4 C L 65 20 114/69 95 03/10/21 02:00 67
[2021-03-10 12:37] LABS: Hematocrit (blood only) 35.5 % (37-47); Hemoglobin 11.3 g/dL (12.0-16.0); Mean Corpuscular Hemoglobin 28.1 pg (25-34); Mean Corpuscular Hgb Conc 31.8 g/dL (32-36); Mean Corpuscular Volume 88.3 fL (80-100); Mean Platelet Volume 10.7 fL (7.4-10.4); Platelet Count 176 K/uL (130-400); RDW Coefficient of Variation 14.7 % (11.5-14.5); RDW Standard Deviation 48.2 fL (36.4-46.3); Red Blood Count 4.02 M/uL (4.2-5.4); White Blood Count 5.77 K/uL (4.8-10.8)
[2021-03-10 13:00] LABS: BUN Creatinine Ratio 17.1 (10-20); Calcium 8.8 mg/dl (8.5-10.1); Creatinine Clr Calc Pharmacy 74.2 ml/min; Est GFR (African American) 69.6 ml/min; Potassium 4.2 mmol/L (3.5-5.1)
--- NOTE | 2021-03-10 16:56 | Electrocardiogram Report ---
Test Reason : Blood Pressure : / mmHG Vent. Rate : 087 BPM Atrial Rate : 087 BPM P-R Int : 174 ms QRS Dur : 076 ms QT Int : 328 ms P-R-T Axes : 051 025 068 degrees QTc Int : 394 ms Normal sinus rhythm Incomplete right bundle branch block Poor R wave progression, consider anterior NM vs. lead placement vs. LVH Abnormal ECG When compared with ECG of 08-MAR-2021 07:25, No significant change was found Confirmed by James Welch ([id number]) on 03/10/2021 4:56:09 PM Referred By: REFERRED SELF Confirmed By:Isrrael Welch
--- NOTE | 2021-03-10 23:55 | Hospitalist Progress Note ---
Date of Service March 10, 2021 Assessment & Plan (1) Septicemia: Plan: Meet sepsis criteria when present to the ER yesterday with tachycardia, febrile and elevated WBC associated with positive blood cx Blood cx and wound cx grew gram-positive cocci in clusters CT food showed extensive subcutaneous edema within the left foot. No fractures or evidence for osteomyelitis. Pt was started on IV Vanco WBC trending to normal Will change IV Vanco to Cefazolin Repeat blood cx pending ECHO showed no evidence of vegetation ID and ortho consult pending Podiatry saw pt in the hospital w Will consult wound nurse Continue monitor closely Chronic Lymphedema History of venous stasis ulcer Will need to follow up with wound clinic Pituitary Microadenoma Pt was having complaint of LONG on admission CT head showed no acute intracranial findings. Grossly stable postoperative findings within the sella, suboptimally assessed by CT. Outpatient follow up with neuro in [place] DM type 2 Most recent Hba1c 6 on 02/21 Continue Lantus and insulin sliding scale Continue monitor BS Enlarge uterine fundus CT abd/pelvis showed heterogeneity and enlargement of the uterine fundus. Pelvis u/s showed heterogeneous thickening of the endometrium, concerning for endometrial cancer versus hyperplasia in this postmenopausal patient. Case discussed with CERTIFIED BREASTFEEDING EDUCATOR that saw the patient and will follow up outpatient Official consult cancelled as per CERTIFIED BREASTFEEDING EDUCATOR Abnormal CT abd/pelvis CT showed several mildly enlarged paraaortic/aortocaval and left iliac chain lymph nodes. These are nonspecific. Will need follow-up CT of the abdomen and pelvis in 6 months DVT prophylaxis. Lovenox subcu Full code Patient's requesting update providers. Mr. Rich Cervantes, contact #[phone]. (2) Cellulitis of left foot: (3) Bacteremia: (4) Fever: Admission and Anticipated Discharge Date Admission Date: March 09, 2021 Subjective Pt was seen and examined for follow up of positive blood and wound from toe culture Sitting in chair with no acute distress Pt said that last night she had chills, but none today She said that she had some headache early Denies any chest pain, palpitation, dizziness and SOB Review of Systems Review of Systems: All systems reviewed & are unremarkable except as noted in Subjective Physical Exam Physical Exam: General- No acute distress Head- atraumatic Eyes- PERRL, EOMI, ENT- oropharynx clear Neck- supple, no JVD Lungs- clear to auscultation Heart- regular rhythm; no murmur Abdomen- normal bowel sounds, soft, nontender Extremities- +bilateral LE swelling wrapped, left dorsal foot erythematous swelling without overt tenderness Neuro- alert, oriented x 3; PERRL, EOMI; no facial palsy; no dysarthria Skin- warm & dry Results & Data Results & Data ([facility]) Vital Signs (Past 12 Hours) Vital Signs Temp Pulse Pulse Resp BP Pulse Ox 03/10/21 22:27 36.5 C 65 20 116/70 96 03/10/21 20:37 36.6 C 68 20 122/72 93 03/10/21 15:35 68 03/10/21 15:28 36.8 C 72 16 121/68 94 03/10/21 11:56 36.5 C 79 20 124/62 94 (1) Fever Fever type: unspecified Qualified Code(s): R50.9 - Fever, unspecified
[2021-03-11] MEDS: ceFAZolin 2000MG 2,000 MG/15 ML SYR IV SCH ×3 (06:07→22:42)
[2021-03-11] MEDS: LEVOTHYROXINE SODIUM 100 MCG TABLET PO SCH (06:07)
[2021-03-11] MEDS: INSULIN ASPART 100 UNITS/ML 3 ML PEN SC SCH ×4 (08:00→20:20)
[2021-03-11] MEDS: INSULIN GLARGINE SOLOSTAR 100 UNITS/ML 3 ML PEN SC SCH ×2 (09:28→20:21)
[2021-03-11] MEDS: PRAVASTATIN SOD 20 MG TAB PO SCH (09:35)
[2021-03-11] MEDS: dilTIAZem ER 120 MG CAPCR PO SCH (09:35)
[2021-03-11] MEDS: METOPROLOL SUCC 25MG EXT REL TAB PO SCH (09:35)
[2021-03-11] MEDS: TOPIRAMATE 50 MG TAB PO SCH (09:35)
[2021-03-11] MEDS: ASPIRIN 81 MG ECTAB PO SCH (09:35)
[2021-03-11] MEDS: ADVANCED PROBIOTIC 1250 MG CAPSULE PO SCH (09:35)
[2021-03-11] MEDS: ENOXAPARIN INJ 40 MG/0.4 ML SYR SQ SCH (09:36)
--- NOTE | 2021-03-11 23:29 | Hospitalist Progress Note ---
Date of Service March 11, 2021 Assessment & Plan (1) Septicemia: (2) Cellulitis of left foot: (3) Bacteremia: (4) Fever: Plan: Meet sepsis criteria when present to the ER yesterday with tachycardia, febrile and elevated WBC associated with positive blood cx Blood cx grew Group B beta strep Wound cx grew Group B beta strep and staph aureus CT food showed extensive subcutaneous edema within the left foot. No fractures or evidence for osteomyelitis. Pt was started on IV Vanco WBC trending to normal Will change IV Vanco to Cefazolin Repeat blood cx no growth so far ECHO showed no evidence of vegetation ID and ortho consult pending Podiatry saw pt in the hospital while in the hospital- no intervention needed Will consult wound nurse Continue monitor closely Chronic Lymphedema History of venous stasis ulcer Will need to follow up with wound clinic Pituitary Microadenoma Pt was having complaint of LONG on admission CT head showed no acute intracranial findings. Grossly stable postoperative findings within the sella, suboptimally assessed by CT. Outpatient follow up with neuro in [place] DM type 2 Most recent Hba1c 6 on 02/21 Continue Lantus and insulin sliding scale Continue monitor BS Enlarge uterine fundus CT abd/pelvis showed heterogeneity and enlargement of the uterine fundus. Pelvis u/s showed heterogeneous thickening of the endometrium, concerning for endometrial cancer versus hyperplasia in this postmenopausal patient. Case discussed with INJECTION MOLD TOOLING TECHNICIAN that saw the patient and will follow up outpatient Official consult cancelled as per INJECTION MOLD TOOLING TECHNICIAN Abnormal CT abd/pelvis CT showed several mildly enlarged paraaortic/aortocaval and left iliac chain lymph nodes. These are nonspecific. Will need follow-up CT of the abdomen and pelvis in 6 months DVT prophylaxis. Lovenox subcu Full code Patient's requesting update providers. Mr. Rich Cervantes, contact #[phone]. Admission and Anticipated Discharge Date Admission Date: March 09, 2021 Subjective Pt was seen and examined for follow up of positive blood and wound from toe culture Sitting in chair with no acute distress Pt said that she feels much better Left lower extremity redness improves Denies any chest pain, palpitation, dizziness and SOB Review of Systems Review of Systems: All systems reviewed & are unremarkable except as noted in Subjective Physical Exam Physical Exam: General- No acute distress Head- atraumatic Eyes- PERRL, EOMI, ENT- oropharynx clear Neck- supple, no JVD Lungs- clear to auscultation Heart- regular rhythm; no murmur Abdomen- normal bowel sounds, soft, nontender Extremities- +bilateral LE swelling wrapped, left dorsal foot erythematous swelling without overt tenderness Neuro- alert, oriented x 3; PERRL, EOMI; no facial palsy; no dysarthria Skin- warm & dry Results & Data Results & Data ([facility]) Vital Signs (Past 12 Hours) Vital Signs Temp Pulse Pulse Resp BP Pulse Ox 03/11/21 23:19 36.6 C 66 20 148/80 H 95 03/11/21 19:08 36.7 C 69 20 143/72 H 96 03/11/21 15:22 36.6 C 61 18 131/58 L 95 03/11/21 15:04 68 03/11/21 12:16 36.5 C 64 20 148/72 H 98 (1) Fever Fever type: unspecified Qualified Code(s): R50.9 - Fever, unspecified
[2021-03-12] MEDS: LEVOTHYROXINE SODIUM 100 MCG TABLET PO SCH (05:39)
[2021-03-12] MEDS: ceFAZolin 2000MG 2,000 MG/15 ML SYR IV SCH ×3 (05:39→22:38)
[2021-03-12] MEDS: METOPROLOL SUCC 25MG EXT REL TAB PO SCH (08:00)
[2021-03-12] MEDS: ASPIRIN 81 MG ECTAB PO SCH (08:00)
[2021-03-12] MEDS: TOPIRAMATE 50 MG TAB PO SCH (08:00)
[2021-03-12] MEDS: INSULIN ASPART 100 UNITS/ML 3 ML PEN SC SCH ×4 (08:00→20:36)
[2021-03-12] MEDS: ADVANCED PROBIOTIC 1250 MG CAPSULE PO SCH (08:00)
[2021-03-12] MEDS: ENOXAPARIN INJ 40 MG/0.4 ML SYR SQ SCH (08:00)
[2021-03-12] MEDS: PRAVASTATIN SOD 20 MG TAB PO SCH (08:00)
[2021-03-12] MEDS: dilTIAZem ER 120 MG CAPCR PO SCH (08:00)
[2021-03-12] MEDS: INSULIN GLARGINE SOLOSTAR 100 UNITS/ML 3 ML PEN SC SCH ×2 (09:24→20:36)
[2021-03-12] MEDS ORDERED: NON-FORMULARY PATIENT'S OWN MED SQ SCH (12:00)
--- NOTE | 2021-03-12 15:26 | Orthopedic Consultation ---
Date of Service March 12, 2021 Assessment & Plan (1) Cellulitis of left toe: I think she is mostly dealing with a cellulitis in the area of her left great toe. I do not see any indications for any debridements or amputations. The CT scan of the foot showed some soft tissue edema but no signs of abscesses or osteomyelitis. I recommended continue antibiotic treatment at this time. Surgery is not indicated. Orthopedics will sign off. If you have any further questions please feel free to contact me personally at [phone] History of Present Illness Reason for Consultation: Left toe infection. Requesting Physician: . Attending Physician: Katia Ocampo MD Neetu is a pleasant 70-year-old female who is lymphedema of her lower extremities. Recently she has been noticing some increasing redness around her left toe. She has also seen a lens grinding machine operator who recently did a nail plate removal on her left great toe. She has never had any ulcerations or abscesses around her left foot. She currently sees wound care for her toes and her lymphedema. She was having a little bit of clear discharge around the second toe mostly from the lymphedema. She was admitted to the hospital for medical reasons. A CT scan was done of the left foot which showed some edema in the soft tissues but no signs of abscess or osteomyelitis. Orthopedics was consulted to evaluate and treat.. Allergies Allergy/AdvReac Type Severity Reaction Status Date / Time fentanyl Allergy Severe Anaphylaxis Verified 03/09/21 00:08 Quinolones Allergy Intermediate CIPRO-HIVES Verified 03/09/21 00:08 latex Allergy Mild rash, and Verified 03/09/21 00:08 blisters perflutren [From Definity] AdvReac Severe Back Pain Verified 03/09/21 00:08 adhesive AdvReac Intermediate rash Verified 03/12/21 11:05 codeine AdvReac Intermediate hallucinati Verified 03/12/21 11:05 ons atorvastatin AdvReac Mild Gastrointestinal Verified 03/12/21 11:05 Upset cephalexin [From Keflex] AdvReac Mild constipatio Verified 03/09/21 00:08 n metformin AdvReac Mild gi upset Verified 03/12/21 11:05 sitagliptin AdvReac Mild GI SYMPTOMS Verified 03/12/21 11:05 Home Medications Medication Instructions Recorded Confirmed Type albuterol sulfate 90 mcg/actuation 2 puffs INH Q4H PRN gm 07/29/18 03/08/21 History aerosol inhaler diltiazem HCl 120 mg capsule,24 120 mg PO QAM 07/29/18 03/08/21 History hr,extended release (Tiazac) dulaglutide 0.75 mg/0.5 mL 1 dose SQ KAPLAN ml 07/29/18 03/08/21 History subcutaneous pen injector (Trulicity) ipratropium 0.5 mg-albuterol 3 mg 3 ml INH Q4H PRN ml 07/29/18 03/08/21 History (2.5 mg base)/3 mL nebulization soln levothyroxine 100 mcg capsule 100 mcg PO QAM 07/29/18 03/08/21 History pravastatin 20 mg tablet 20 mg PO QAM 03/27/19 03/08/21 History topiramate 50 mg tablet (Topamax) 50 mg PO QAM tab 03/27/19 03/09/21 History metoprolol succinate 25 mg 25 mg PO QAM 08/07/19 03/08/21 History tablet,extended release 24 hr naproxen sodium 220 mg tablet 220 mg PO Q12H PRN 08/07/19 03/08/21 History (Aleve) potassium gluconate 600 mg (99 mg) 99 mg PO QAM 08/07/19 03/08/21 History tablet vitamin E 400 unit capsule 400 unit PO QAM 08/07/19 03/09/21 History insulin degludec 200 unit/mL (3 160 unit SUBCUT QAM 08/10/19 03/08/21 History mL) subcutaneous pen (Tresiba FlexTouch U-200 insulin) cholecalciferol (vitamin D3) 25 25 mcg PO DAILY 04/01/20 03/08/21 History mcg (1,000 unit) capsule insulin aspart U-100 100 unit/mL 0 unit SQ TIDM ml 04/01/20 03/08/21 History subcutaneous solution (Novolog U-100 Insulin aspart) lisinopril 40 mg tablet 40 mg PO DAILY 04/01/20 03/08/21 History prednisone 5 mg tablet 5 mg PO DAILY PRN 04/01/20 03/09/21 History psyllium husk 0.52 gram capsule 0.52 g PO DAILY 04/01/20 03/09/21 History (Fiber Laxative (psyllium husk)) torsemide 20 mg tablet 20 mg PO DAILY 04/01/20 03/09/21 History nystatin 100,000 unit/gram topical 1 applic TOPICAL DAILY 30 Days #30 08/29/20 03/08/21 Rx powder g aspirin 81 mg tablet,delayed 81 mg PO QAM 03/08/21 03/08/21 History release sulfamethoxazole 800 1 tab PO Q12H 7 Days #14 tab 03/08/21 03/09/21 Rx mg-trimethoprim 160 mg tablet (Bactrim DS) lactobacillus combination no.4 3 3,000 mmu cells PO DAILY 03/09/21 03/09/21 History billion cell capsule (Probiotic) Past Med/Surg History Medical History Albuminuria Allergic rhinitis Anxiety Arthritis Asthma Atypical chest pain Background diabetic retinopathy associated with type 2 diabetes mellitus Benign neoplasm of colon Bradycardia Breast cancer Carpal tunnel syndrome COPD (chronic obstructive pulmonary disease) Diabetes type 2, controlled Diabetic nephropathy associated with type 2 diabetes mellitus Dyslipidemia Eustachian tube dysfunction Eustachian tube dysfunction Nnamdi's thyroiditis Hypertension Hypertrophy of both inferior nasal turbinates Hypothyroidism IBS (irritable bowel syndrome) Lumbar canal stenosis Lymphedema Nasal septal deviation Neoplasm of sphenoid sinus Nephrolithiasis Obesity PAC (premature atrial contraction) Pituitary macroadenoma with extrasellar extension PSVT (paroxysmal supraventricular tachycardia) Right sacral radiculopathy Sensorineural hearing loss Tardy ulnar nerve palsy TIA (transient ischemic attack) Type 2 diabetes mellitus with complications Type 2 diabetes mellitus, with long-term current use of insulin Urinary frequency Urinary urgency Vaginal candidiasis Venous stasis ulcer Vitiligo Surgical History H/O bilateral mastectomy H/O bladder repair surgery H/O colonoscopy H/O cystoscopy H/O knee surgery H/O sinus surgery History of carpal tunnel release History of dental surgery History of dilatation and curettage History of salpingo-oophorectomy S/P cholecystectomy S/P laparoscopic cholecystectomy S/P mastectomy S/P nasal surgery S/P oophorectomy S/P tubal ligation Surgery, elective Mid-urethral sling placement Family History Father Coronary heart disease Hypertension Mother Malignant melanoma Son Asthma Grandfather (Maternal) Colorectal cancer Grandmother (Maternal) Uterine cancer Other Diabetes Heart disease Social History Smoking Status: Never smoker packs per day: 2; Years Smoked: 30; Hx Alcohol Use: No Hx Substance Use: No Preferred Language: German Communication Ability: Effective Visual Impairment: No Limitations Hearing Ability: Normal Assembly Line Driver Required: No Beliefs That Will Affect Care: None marital status: Current Living Situation: Spouse current occupational status: retired Other Information That Helps Us Care for You: No Feels Safe at Home: Yes Safety Concerns: Feels Safe At This Time Assistive Devices: None Review of Systems All systems reviewed & are unremarkable except as noted in HPI & below. Physical Exam On physical examination of the left foot, there is some cellulitis around the gr eat toe and the second toe. Most of her foot is wrapped and I had to take the wrapping down. I do not see any ulcerations. I do not see any open wounds. The nail plate of her great toe is missing.. Constitutional WD/WN, vitals as above Eyes PERRL, conjunctivae normal, anicteric sclerae ENMT external ear and nose normal, oropharynx normal Neck trachea midline, no thyromegaly Respiratory normal respiratory effort Cardiovascular RRR, no murmur, no edema Gastrointestinal (Abdomen) normal bowel sounds, soft, nontender, no hepatosplenomegaly Psychiatric A+Ox3, euthymic affect Results & Data Results & Data Laboratory Results . Diagnostic Findings I reviewed the images of the CT scan of the foot as well as the radiology report. I will see any areas of abscess or signs of osteomyelitis. There is some edema of the soft tissues.. PG Care Time/CCT Total # of Minutes Spent Total Time Spent with Patient: Total time spent is greater than 50% in coordination of care (as documented) at patient's floor/unit and/or counseling patient: Coding Level of Care Code 97486 Inpt Consult Level 4 Diagnoses Cellulitis of left toe L03.032
--- NOTE | 2021-03-12 17:33 | Hospitalist Progress Note ---
Date of Service March 12, 2021 Assessment & Plan (1) Septicemia: (2) Cellulitis of left foot: (3) Bacteremia: (4) Fever: Plan: Meet sepsis criteria when present to the ER yesterday with tachycardia, febrile and elevated WBC associated with positive blood cx Blood cx grew Group B beta strep Wound cx grew Group B beta strep and staph aureus CT food showed extensive subcutaneous edema within the left foot. No fractures or evidence for osteomyelitis. Pt was started on IV Vanco WBC is normal Will change IV Vanco to Cefazolin Repeat blood cx no growth so far ECHO showed no evidence of vegetation Ortho on board recommended to continue antibiotic therapy and no surgical intervention needed ID consult pending Podiatry saw pt in the hospital while in the hospital- no intervention needed continue daily wound care and wound care nurse Continue monitor closely Chronic Lymphedema History of venous stasis ulcer Will need to follow up with wound clinic Pituitary Microadenoma Pt was having complaint of LONG on admission CT head showed no acute intracranial findings. Grossly stable postoperative findings within the sella, suboptimally assessed by CT. Outpatient follow up with neuro in [place] DM type 2 Most recent Hba1c 6 on 02/21 Continue Lantus and insulin sliding scale Continue monitor BS Enlarge uterine fundus CT abd/pelvis showed heterogeneity and enlargement of the uterine fundus. Pelvis u/s showed heterogeneous thickening of the endometrium, concerning for endometrial cancer versus hyperplasia in this postmenopausal patient. Case discussed with CHEMICAL PLANT OPERATOR SUPERVISOR that saw the patient and will follow up outpatient Official consult cancelled as per CHEMICAL PLANT OPERATOR SUPERVISOR Abnormal CT abd/pelvis CT showed several mildly enlarged paraaortic/aortocaval and left iliac chain lymph nodes. These are nonspecific. Will need follow-up CT of the abdomen and pelvis in 6 months DVT prophylaxis. Lovenox subcu Full code Patient's requesting update providers. Mr. Rich Cervantes, contact #[phone]. Admission and Anticipated Discharge Date Admission Date: March 09, 2021 Subjective Pt was seen and examined for follow up of positive blood and wound culture Sitting in chair with no acute distress watching TV Left lower extremity redness continue to improve Denies any chest pain, palpitation, dizziness and SOB Review of Systems Review of Systems: All systems reviewed & are unremarkable except as noted in Subjective Physical Exam Physical Exam: General- No acute distress Head- atraumatic Eyes- PERRL, EOMI, ENT- oropharynx clear Neck- supple, no JVD Lungs- clear to auscultation Heart- regular rhythm; no murmur Abdomen- normal bowel sounds, soft, nontender Extremities- +bilateral LE swelling wrapped, left dorsal foot erythematous swelling without overt tenderness Neuro- alert, oriented x 3; PERRL, EOMI; no facial palsy; no dysarthria Skin- warm & dry Results & Data Results & Data ([facility]) Vital Signs (Past 12 Hours) Vital Signs Temp Pulse Pulse Resp BP Pulse Ox 03/12/21 15:06 36.6 C 58 L 20 145/75 H 94 03/12/21 14:56 60 03/12/21 12:00 36.5 C 63 20 151/75 H 96 03/12/21 07:30 36.4 C L 65 18 134/78 96 03/12/21 07:09 62 (1) Fever Fever type: unspecified Qualified Code(s): R50.9 - Fever, unspecified
[2021-03-13] MEDS: LEVOTHYROXINE SODIUM 100 MCG TABLET PO SCH (05:23)
[2021-03-13] MEDS: ceFAZolin 2000MG 2,000 MG/15 ML SYR IV SCH ×3 (05:23→22:12)
[2021-03-13] MEDS: TOPIRAMATE 50 MG TAB PO SCH (08:17)
[2021-03-13] MEDS: METOPROLOL SUCC 25MG EXT REL TAB PO SCH (08:17)
[2021-03-13] MEDS: ADVANCED PROBIOTIC 1250 MG CAPSULE PO SCH (08:17)
[2021-03-13] MEDS: dilTIAZem ER 120 MG CAPCR PO SCH (08:17)
[2021-03-13] MEDS: INSULIN GLARGINE SOLOSTAR 100 UNITS/ML 3 ML PEN SC SCH ×2 (08:17→22:00)
[2021-03-13] MEDS: PRAVASTATIN SOD 20 MG TAB PO SCH (08:17)
[2021-03-13] MEDS: ASPIRIN 81 MG ECTAB PO SCH (08:17)
[2021-03-13] MEDS: INSULIN ASPART 100 UNITS/ML 3 ML PEN SC SCH ×4 (08:18→21:58)
[2021-03-13] MEDS: ENOXAPARIN INJ 40 MG/0.4 ML SYR SQ SCH (08:19)
[2021-03-13 09:37] LABS: BUN Creatinine Ratio 12.2 (10-20); Calcium 9.5 mg/dl (8.5-10.1); Creatinine Clr Calc Pharmacy 83.6 ml/min; Est GFR (African American) 80.5 ml/min; Est GFR (Non-African American) 69.4 ml/min
--- NOTE | 2021-03-13 23:48 | Hospitalist Progress Note ---
Date of Service March 13, 2021 Assessment & Plan (1) Septicemia: (2) Cellulitis of left foot: (3) Bacteremia: (4) Fever: Plan: Meet sepsis criteria when present to the ER yesterday with tachycardia, febrile and elevated WBC associated with positive blood cx Blood cx grew Group B beta strep Wound cx grew Group B beta strep and staph aureus CT food showed extensive subcutaneous edema within the left foot. No fractures or evidence for osteomyelitis. Pt was started on IV Vanco WBC is normal Will change IV Vanco to Cefazolin Repeat blood cx no growth so far ECHO showed no evidence of vegetation Ortho on board recommended to continue antibiotic therapy and no surgical intervention needed ID consulted recommended to continue IV Cefazolin until 03/15 to complete 7 days course, then transition to PO Augmentin 500mg TID untile 03/22 Will need to get weekly CRP; and if CRP above 1 will need to extend antibiotic for another 1 to 2 weeks Podiatry saw pt in the hospital while in the hospital- no intervention needed continue daily wound care and wound care nurse Continue monitor closely Chronic Lymphedema History of venous stasis ulcer Will need to follow up with wound clinic Pituitary Microadenoma Pt was having complaint of LONG on admission CT head showed no acute intracranial findings. Grossly stable postoperative findings within the sella, suboptimally assessed by CT. Outpatient follow up with neuro in [place] DM type 2 Most recent Hba1c 6 on 02/21 Continue Lantus and insulin sliding scale Continue monitor BS Enlarge uterine fundus CT abd/pelvis showed heterogeneity and enlargement of the uterine fundus. Pelvis u/s showed heterogeneous thickening of the endometrium, concerning for endometrial cancer versus hyperplasia in this postmenopausal patient. Case discussed with INDEX CLERK that saw the patient and will follow up outpatient Official consult cancelled as per INDEX CLERK Abnormal CT abd/pelvis CT showed several mildly enlarged paraaortic/aortocaval and left iliac chain lymph nodes. These are nonspecific. Will need follow-up CT of the abdomen and pelvis in 6 months DVT prophylaxis. Lovenox subcu Full code Disposition Will discharge home in am Patient's requesting update providers. Mr. Rich Cervantes, contact #[phone]. Admission and Anticipated Discharge Date Admission Date: March 09, 2021 Subjective Pt was seen and examined for follow up of positive blood and wound culture Sitting in chair with no acute distress watching TV Left lower extremity redness continue to improve Denies any chest pain, palpitation, dizziness and SOB Review of Systems Review of Systems: All systems reviewed & are unremarkable except as noted in Subjective Physical Exam Physical Exam: General- No acute distress Head- atraumatic Eyes- PERRL, EOMI, ENT- oropharynx clear Neck- supple, no JVD Lungs- clear to auscultation Heart- regular rhythm; no murmur Abdomen- normal bowel sounds, soft, nontender Extremities- +bilateral LE swelling wrapped, left dorsal foot erythematous swelling without overt tenderness Neuro- alert, oriented x 3; PERRL, EOMI; no facial palsy; no dysarthria Skin- warm & dry Results & Data Results & Data ([facility]) Vital Signs (Past 12 Hours) Vital Signs Temp Pulse Pulse Resp BP Pulse Ox 03/13/21 18:22 36.6 C 63 18 143/70 H 93 03/13/21 15:38 36.6 C 63 18 160/69 H 93 03/13/21 15:15 74 (1) Fever Fever type: unspecified Qualified Code(s): R50.9 - Fever, unspecified
[2021-03-14] MEDS: LEVOTHYROXINE SODIUM 100 MCG TABLET PO SCH (05:55)
[2021-03-14] MEDS: ceFAZolin 2000MG 2,000 MG/15 ML SYR IV SCH ×3 (05:55→21:29)
[2021-03-14] MEDS: TOPIRAMATE 50 MG TAB PO SCH (09:03)
[2021-03-14] MEDS: METOPROLOL SUCC 25MG EXT REL TAB PO SCH (09:03)
[2021-03-14] MEDS: ADVANCED PROBIOTIC 1250 MG CAPSULE PO SCH (09:03)
[2021-03-14] MEDS: dilTIAZem ER 120 MG CAPCR PO SCH (09:03)
[2021-03-14] MEDS: INSULIN ASPART 100 UNITS/ML 3 ML PEN SC SCH ×4 (09:04→21:36)
[2021-03-14] MEDS: PRAVASTATIN SOD 20 MG TAB PO SCH (09:04)
[2021-03-14] MEDS: ASPIRIN 81 MG ECTAB PO SCH (09:04)
[2021-03-14] MEDS: INSULIN GLARGINE SOLOSTAR 100 UNITS/ML 3 ML PEN SC SCH ×2 (09:07→21:35)
[2021-03-14] MEDS: ENOXAPARIN INJ 40 MG/0.4 ML SYR SQ SCH (09:17)
--- NOTE | 2021-03-15 | Hospitalist Progress Note ---
Date of Service March 14, 2021 Assessment & Plan (1) Septicemia: (2) Cellulitis of left foot: (3) Bacteremia: (4) Fever: Plan: Meet sepsis criteria when present to the ER yesterday with tachycardia, febrile and elevated WBC associated with positive blood cx Blood cx grew Group B beta strep Wound cx grew Group B beta strep and staph aureus CT food showed extensive subcutaneous edema within the left foot. No fractures or evidence for osteomyelitis. Pt was started on IV Vanco WBC is normal Will change IV Vanco to Cefazolin Repeat blood cx no growth so far ECHO showed no evidence of vegetation Ortho on board recommended to continue antibiotic therapy and no surgical intervention needed ID consulted recommended to continue IV Cefazolin until 03/15 to complete 7 days course, then transition to PO Augmentin 500mg TID untile 03/22 Will need to get weekly CRP; and if CRP above 1 will need to extend antibiotic for another 1 to 2 weeks Spoke to pharmacy to try to give last dose IV abx alittle early in the afternoon that we can discharge her after the IV cefazolin Podiatry saw pt in the hospital while in the hospital- no intervention needed continue daily wound care and wound care nurse Continue monitor closely Chronic Lymphedema History of venous stasis ulcer Will need to follow up with wound clinic Pituitary Microadenoma Pt was having complaint of LONG on admission CT head showed no acute intracranial findings. Grossly stable postoperative findings within the sella, suboptimally assessed by CT. Outpatient follow up with neuro in [place] DM type 2 Most recent Hba1c 6 on 02/21 Continue Lantus and insulin sliding scale Continue monitor BS Enlarge uterine fundus CT abd/pelvis showed heterogeneity and enlargement of the uterine fundus. Pelvis u/s showed heterogeneous thickening of the endometrium, concerning for endometrial cancer versus hyperplasia in this postmenopausal patient. Case discussed with TECHNICAL PRODUCT MANAGER that saw the patient and will follow up outpatient Official consult cancelled as per TECHNICAL PRODUCT MANAGER Abnormal CT abd/pelvis CT showed several mildly enlarged paraaortic/aortocaval and left iliac chain lymph nodes. These are nonspecific. Will need follow-up CT of the abdomen and pelvis in 6 months DVT prophylaxis. Lovenox subcu Full code Disposition Will discharge home in am Patient's requesting update providers. Mr. Rich Cervantes, contact #[phone]. Admission and Anticipated Discharge Date Admission Date: March 09, 2021 Subjective Pt was seen and examined for follow up of positive blood and wound culture Sitting in chair with no acute distress watching TV Left lower extremity redness continue to improve Denies any chest pain, palpitation, dizziness and SOB Review of Systems Review of Systems: All systems reviewed & are unremarkable except as noted in Subjective Physical Exam Physical Exam: General- No acute distress Head- atraumatic Eyes- PERRL, EOMI, ENT- oropharynx clear Neck- supple, no JVD Lungs- clear to auscultation Heart- regular rhythm; no murmur Abdomen- normal bowel sounds, soft, nontender Extremities- +bilateral LE swelling wrapped, left dorsal foot erythematous swelling without overt tenderness Neuro- alert, oriented x 3; PERRL, EOMI; no facial palsy; no dysarthria Skin- warm & dry Results & Data Results & Data ([facility]) Vital Signs (Past 12 Hours) Vital Signs Temp Pulse Resp BP BP Pulse Ox 03/14/21 18:23 36.5 C 61 20 149/69 H 94 03/14/21 15:30 36.5 C 60 12 133/74 96 03/14/21 12:31 36.5 C 70 20 132/71 96 (1) Fever Fever type: unspecified Qualified Code(s): R50.9 - Fever, unspecified
[2021-03-15] MEDS: ceFAZolin 2000MG 2,000 MG/15 ML SYR IV SCH ×2 (04:35→10:57)
[2021-03-15] MEDS: LEVOTHYROXINE SODIUM 100 MCG TABLET PO SCH (06:05)
[2021-03-15] MEDS: PRAVASTATIN SOD 20 MG TAB PO SCH (08:45)
[2021-03-15] MEDS: TOPIRAMATE 50 MG TAB PO SCH (08:45)
[2021-03-15] MEDS: dilTIAZem ER 120 MG CAPCR PO SCH (08:45)
[2021-03-15] MEDS: ASPIRIN 81 MG ECTAB PO SCH (08:45)
[2021-03-15] MEDS: METOPROLOL SUCC 25MG EXT REL TAB PO SCH (08:45)
[2021-03-15] MEDS: ADVANCED PROBIOTIC 1250 MG CAPSULE PO SCH (08:46)
[2021-03-15] MEDS: INSULIN GLARGINE SOLOSTAR 100 UNITS/ML 3 ML PEN SC SCH (08:49)
[2021-03-15] MEDS: INSULIN ASPART 100 UNITS/ML 3 ML PEN SC SCH ×2 (08:50→12:54)
[2021-03-15] MEDS: ENOXAPARIN INJ 40 MG/0.4 ML SYR SQ SCH (10:56)
--- NOTE | 2021-03-15 12:34 | Hospitalist Progress Note ---
Date of Service March 15, 2021 Assessment & Plan (1) Septicemia: (2) Cellulitis of left foot: (3) Bacteremia: (4) Fever: Plan: Meet sepsis criteria when present to the ER yesterday with tachycardia, febrile and elevated WBC associated with positive blood cx Blood cx grew Group B beta strep Wound cx grew Group B beta strep and staph aureus CT food showed extensive subcutaneous edema within the left foot. No fractures or evidence for osteomyelitis. Pt was started on IV Vanco WBC is normal Will change IV Vanco to Cefazolin Repeat blood cx no growth so far ECHO showed no evidence of vegetation Ortho on board recommended to continue antibiotic therapy and no surgical intervention needed ID consulted recommended to continue IV Cefazolin until 03/15 to complete 7 days course, then transition to PO Augmentin 500mg TID untile 03/22 Will need to get weekly CRP; and if CRP above 1 will need to extend antibiotic for another 1 to 2 weeks Spoke to pharmacy to try to give last dose IV abx alittle early in the afternoon that we can discharge her after the IV cefazolin Podiatry saw pt in the hospital while in the hospital- no intervention needed , follow up as outpt continue daily wound care and wound care nurse Continue monitor closely Chronic Lymphedema History of venous stasis ulcer Will need to follow up with wound clinic Pituitary Microadenoma Pt was having complaint of LONG on admission CT head showed no acute intracranial findings. Grossly stable postoperative findings within the sella, suboptimally assessed by CT. Outpatient follow up with neuro in [place] DM type 2 Most recent Hba1c 6 on 02/21 Continue Lantus and insulin sliding scale Continue monitor BS Enlarge uterine fundus CT abd/pelvis showed heterogeneity and enlargement of the uterine fundus. Pelvis u/s showed heterogeneous thickening of the endometrium, concerning for endometrial cancer versus hyperplasia in this postmenopausal patient. Case discussed with CUSTOMER STRATEGY MANAGER that saw the patient and will follow up outpatient Official consult cancelled as per CUSTOMER STRATEGY MANAGER Abnormal CT abd/pelvis CT showed several mildly enlarged paraaortic/aortocaval and left iliac chain lymph nodes. These are nonspecific. Will need follow-up CT of the abdomen and pelvis in 6 months DVT prophylaxis. Lovenox subcu Full code Disposition : Plan to discharge home today Patient's , Mr. Rich Cervantes, contact #[phone]. Admission and Anticipated Discharge Date Admission Date: March 09, 2021 Subjective Pt was seen and examined for follow up of positive blood and wound culture Sitting in chair in [facility], eager to be discharged Left lower extremity redness continue to improve Denies any chest pain, palpitation, dizziness and SOB Review of Systems Review of Systems: All systems reviewed & are unremarkable except as noted in Subjective Physical Exam Physical Exam: General- obese F , No acute distress Head- atraumatic Eyes- PERRL, EOMI, ENT- oropharynx clear Neck- supple, no JVD Lungs- clear to auscultation Heart- regular rhythm; no murmur Abdomen- normal bowel sounds, soft, nontender Extremities- +bilateral LE swelling wrapped, left dorsal foot erythematous swelling without overt tenderness Neuro- alert, oriented x 3; PERRL, EOMI; no facial palsy; no dysarthria Skin- warm & dry Results & Data Results & Data ([facility]) Vital Signs (Past 12 Hours) Vital Signs Temp Pulse Resp BP Pulse Ox 03/15/21 08:03 36.5 C 68 20 141/62 H 96 03/15/21 06:10 36.4 C L 66 18 113/72 94 Laboratory Results 03/15/21 03/14/21 03/14/21 Range/Units 07:50 21:27 16:45 POC Glucose 154 H 227 H 170 H (70-99) mg/dl Medications Administered Current Inpatient Medications Acetaminophen (Acetaminophen 325 Mg Tab) 650 mg PO Q4H PRN PRN Reason: Pain or Fever Stop: 04/08/21 03:49 Last Admin: 03/09/21 17:18 Dose: 650 mg Documented by: Aspirin (Aspirin 81 Mg Ectab) 81 mg PO [facility] Stop: 04/08/21 08:59 Last Admin: 03/15/21 08:45 Dose: 81 mg Documented by: Dextrose (Dextrose 50% 50 Ml Syringe) 25 - 50 ml IV UD PRN; Protocol PRN Reason: Hypoglycemia Protocol Stop: 04/08/21 03:49 Diltiazem HCl (Diltiazem Er 120 Mg Capcr) [facility] [place] Stop: 04/08/21 08:59 Last Admin: 03/15/21 08:45 Dose: 120 mg Documented by: Enoxaparin Sodium (Enoxaparin Inj 40 Mg/0.4 Ml Syr) 40 mg SQ [facility] Stop: 04/08/21 08:59 Last Admin: 03/15/21 10:56 Dose: 40 mg Documented by: Glucagon (Glucagon For Inj 1 Mg Vial) 1 mg SQ UD PRN; Protocol PRN Reason: Hypoglycemia Protocol Stop: 04/08/21 03:49 Glucose (Glucose 10 Tabs/Tube) 4 - 8 tabs PO UD PRN; Protocol PRN Reason: Hypoglycemia Protocol Stop: 04/08/21 03:49 Glucose (Glucose 40% Gel 15 Gm Tube) 15 - 30 gm PO UD PRN; Protocol PRN Reason: Hypoglycemia Protocol Stop: 04/08/21 03:49 Promethazine HCl 12.5 mg/ (Sodium Chloride) 50.5 mls @ 202 mls/hr IV Q6H PRN PRN Reason: Nausea And Vomiting Stop: 04/08/21 03:49 Last Infusion: 03/10/21 04:34 Dose: Infused Documented by: Cefazolin Sodium (Ancef 2000mg) 2,000 mg in 15 mls @ 3.75 mls/min IV Q8H [facility]; Protocol Stop: 03/15/21 23:59 Last Admin: 03/15/21 10:57 Dose: 3.75 mls/min Documented by: Insulin Aspart (Insulin Aspart 100 Units/Ml 3 Ml Pen) 0 units SC ACHS [facility] Stop: 04/08/21 04:29 Last Admin: 03/15/21 08:50 Dose: 4 units Documented by: Insulin Glargine (Insulin Glargine Solostar 100 Units/Ml 3 Ml Pen) 5 units SC BID [facility] Stop: 04/08/21 08:59 Last Admin: 03/15/21 08:49 Dose: 5 units Documented by: Lactobacillus Acidoph/Casei/Rhamnos (Advanced Probiotic 1250 Mg Capsule) 2 cap PO DAILY [facility] Stop: 04/08/21 08:59 Last Admin: 03/15/21 08:46 Dose: 2 cap Documented by: Levothyroxine Sodium (Levothyroxine Sodium 100 Mcg Tablet) 100 mcg PO DAILYBB [facility] Stop: 04/08/21 06:29 Last Admin: 03/15/21 06:05 Dose: 100 mcg Documented by: Metoprolol Succinate (Metoprolol Succ 25mg Ext Rel Tab) 25 mg PO QAM [facility] Stop: 04/08/21 08:59 Last Admin: 03/15/21 08:45 Dose: 25 mg Documented by: Miscellaneous (Carbohydrates For Hypoglycemia ) 15 - 30 gm PO UD PRN PRN Reason: Hypoglycemia Protocol Stop: 04/08/21 03:49 Morphine Sulfate (Morphine Sulfate 4 Mg/Ml 1 Ml Carp\Vial) 4 mg IV Q4H PRN PRN Reason: Pain Stop: 03/23/21 03:49 Non-Formulary Medication (Non-Formulary Patient's Own Med) 1 ea SQ Q7D@1200 [facility] Stop: 04/11/21 11:59 Last Admin: 03/12/21 11:13 Dose: 0.75 mg Documented by: Oxycodone HCl (Oxycodone Hcl Ir 5 Mg Tab (Immediate Release)) 5 - 10 mg PO QID PRN PRN Reason: Pain Stop: 03/23/21 03:49 Pravastatin Sodium (Pravastatin Sod 20 Mg Tab) 20 mg PO [facility] Stop: 04/08/21 08:59 Last Admin: 03/15/21 08:45 Dose: 20 mg Documented by: Topiramate (Topiramate 50 Mg Tab) 50 mg PO [facility] Stop: 04/08/21 08:59 Last Admin: 03/15/21 08:45 Dose: 50 mg Documented by: (1) Fever Fever type: unspecified Qualified Code(s): R50.9 - Fever, unspecified
--- NOTE | 2021-03-15 14:04 | Discharge Summary ---
Date of Service March 15, 2021 Admission HPI Per Admitting Provider History obtained from patient, family, and records. Medical history significant for COPD as per records, PSVT, hypertension, history TIA as per records, hypothyroidism, history of breast cancer right sp surgery status post hormonal therapy, chronic lymphedema on diuretic Rx/history of venous stasis ulcer, pituitary microadenoma status post surgery DM2 insulin requiring, history of MRSA, past tobacco abuse. Last confinement February 2021 for atypical chest pain, hypertension Few days ago patient noted headache symptoms reminiscent of migraine attack along with transient diarrhea. No neck pain. Patient noted back pain hurting more than usual with fever, chills. No unusual leg radiation, no incontinence. No recollection of recent trauma except for having to lie down for an outpatient CAT scan of the head and lungs for her pituitary lesion and lung nodules. Patient seen at the ER yesterday morning. Slight erythema noted on left great toe as per provider exam. Toenail recently taken out by patient scrap carrier. No fluctuant abscess. Patient denies unusual pain. ER provider recommended admission but patient declined. Patient discharged on Bactrim course. Blood cultures 1 bottle later grew gram-positive cocci in chains. Patient requested by hospital staff to return to ER. IV Vancomycin and Ceftriaxone given at the ER. Medical History as above SURGERIES: Bilateral tubal ligation, dental surgery, bladder surgery, Bilateral mastectomy, oophorectomy, nasal septum repair, sinus surgery, cholecystectomy, transsphenoidal pituitary tumor removal, tissue grafting/tissue double end sewer/skin tissue rearrangement FAMILY HISTORY: Heart disease, IBD, colon cancer, uterine cancer, melanoma, asthma PERSONAL AND SOCIAL HISTORY: Past tobacco abuse. No chronic intake of alcoholic beverages. 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 Admission Exam Per Admitting Provider GENERAL: Slightly uncomfortable, morbidly obese, pleasant, no respiratory distress SKIN: Normal color, warm HEENT: [place] palpebral conjunctivae, no ptosis, dry buccal mucosa NECK : Supple, short neck, no tenderness CHEST : CTA, no tenderness HEART : RRR, no obvious murmurs ABDOMEN: Some distention, nontender BACK : Low back tenderness, negative straight leg raise test EXTREMITIES : bilateral LE swelling wrapped in dressing, left foot erythematous swelling without overt tenderness NEUROLOGIC : Coherent, no facial asymmetry, no other gross focality Principal Diagnosis Sepsis bacteremia Left foot cellulitis Discharge Exam General- obese F , No acute distress Head- atraumatic Eyes- PERRL, EOMI, ENT- oropharynx clear Neck- supple, no JVD Lungs- clear to auscultation Heart- regular rhythm; no murmur Abdomen- normal bowel sounds, soft, nontender Extremities- +bilateral LE swelling wrapped, left dorsal foot erythematous swelling without overt tenderness Neuro- alert, oriented x 3; PERRL, EOMI; no facial palsy; no dysarthria Skin- warm & dry Discharge Data Allergies Allergy/AdvReac Type Severity Reaction Status Date / Time fentanyl Allergy Severe Anaphylaxis Verified 03/09/21 00:08 Quinolones Allergy Intermediate CIPRO-HIVES Verified 03/09/21 00:08 latex Allergy Mild rash, and Verified 03/09/21 00:08 blisters perflutren [From Definity] AdvReac Severe Back Pain Verified 03/09/21 00:08 adhesive AdvReac Intermediate rash Verified 03/12/21 11:05 codeine AdvReac Intermediate hallucinati Verified 03/12/21 11:05 ons atorvastatin AdvReac Mild Gastrointestinal Verified 03/12/21 11:05 Upset cephalexin [From Keflex] AdvReac Mild constipatio Verified 03/09/21 00:08 n metformin AdvReac Mild gi upset Verified 03/12/21 11:05 sitagliptin AdvReac Mild GI SYMPTOMS Verified 03/12/21 11:05 Consultations 03/09/21 12:00 Consult Infectious Diseases Routine 03/09/21 14:48 Consult Orthopedic Surgery Routine Ordered Studies 03/09/21 00:24 CT abd pelvis IV con only Urgent CT head/brain w con Urgent CT lumbar spine w con Urgent 03/09/21 06:00 CT foot LT wo con Urgent 03/09/21 09:19 US pelvic complete Routine Hospital Course (1) Septicemia: (2) Cellulitis of left foot: (3) Bacteremia: (4) Fever: Meet sepsis criteria when present to the ER yesterday with tachycardia, febrile and elevated WBC associated with positive blood cx Blood cx grew Group B beta strep Wound cx grew Group B beta strep and staph aureus CT food showed extensive subcutaneous edema within the left foot. No fractures or evidence for osteomyelitis. Pt was started on IV Vanco WBC is normal Will change IV Vanco to Cefazolin Repeat blood cx no growth so far ECHO showed no evidence of vegetation Ortho on board recommended to continue antibiotic therapy and no surgical intervention needed ID consulted recommended to continue IV Cefazolin until 03/15 to complete 7 days course, then transition to PO Augmentin 500mg TID untile 03/22 Will need to get weekly CRP; and if CRP above 1 will need to extend antibiotic for another 1 to 2 weeks Spoke to pharmacy to try to give last dose IV abx alittle early in the afternoon that we can discharge her after the IV cefazolin Podiatry saw pt in the hospital while in the hospital- no intervention needed , follow up as outpt continue daily wound care and wound care nurse Continue monitor closely Chronic Lymphedema History of venous stasis ulcer Will need to follow up with wound clinic Pituitary Microadenoma Pt was having complaint of LONG on admission CT head showed no acute intracranial findings. Grossly stable postoperative findings within the sella, suboptimally assessed by CT. Outpatient follow up with neuro in [place] DM type 2 Most recent Hba1c 6 on 02/21 Continue Lantus and insulin sliding scale Continue monitor BS Enlarge uterine fundus CT abd/pelvis showed heterogeneity and enlargement of the uterine fundus. Pelvis u/s showed heterogeneous thickening of the endometrium, concerning for endometrial cancer versus hyperplasia in this postmenopausal patient. Case discussed with APPLICATION SERVICES MANAGER that saw the patient and will follow up outpatient Official consult cancelled as per APPLICATION SERVICES MANAGER Abnormal CT abd/pelvis CT showed several mildly enlarged paraaortic/aortocaval and left iliac chain lymph nodes. These are nonspecific. Will need follow-up CT of the abdomen and pelvis in 6 months DVT prophylaxis. Lovenox subcu Full code Disposition : Plan to discharge home today Patient's , Mr. Rich Cervantes, contact #[phone]. Total Time Total Time Spent Total Time Spent (In Minutes): 35 Discharge Plan Discharge Items Patient Disposition: Home - Self-Care Reason For Visit: SEPSIS, BACTEREMIA Discharge Diagnosis: Sepsis bacteremia Left foot cellulitis Activity: Per Instructions section Non-emergency contact: Primary Care Provider Call non-emergency contact if: you have any medication questions and your symptoms worsen Follow-up/Referrals: Jhon Leary MD [Primary Care Provider] - (Date & Time 03/20/2021 10:20 AM Provider Jhon Leary MD Department General Internal Medicine [facility] ) Diet: Carb Consistent or DM2 Addtl Attending Provider Instructions: Follow-up with your primary care doctor, the appointment was scheduled for you for March 20. You will also need to follow-up with your scrap carrier and /or wound care center. Take Augmentin 500 mg every 8 hours until March 22. At that time your healthcare providers will decide if you need to be on a longer antibiotic treatment. Pending Studies at Discharge: No Stand-Alone Forms: My [facility], Smoking Cessation Medications and DC Order Prescriptions: New amoxicillin-pot clavulanate [Augmentin] 500-125 mg tablet 1 tab PO Q8H 8 Days Qty: 24 RF: 0 Continued ipratropium-albuterol 0.5 mg-3 mg(2.5 mg base)/3 mL solution for nebulization 3 ml INH Q4H PRN (Reason: shortness of breath or wheezing) RF: 0 levothyroxine 100 mcg capsule 100 mcg PO QAM RF: 0 albuterol sulfate 90 mcg/actuation HFA aerosol inhaler 2 puffs INH Q4H PRN (Reason: Shortness Of Breath) RF: 0 diltiazem HCl [Tiazac] 120 mg capsule,extended release 24 hr 120 mg PO QAM RF: 0 dulaglutide [Trulicity] 0.75 mg/0.5 mL pen injector 1 dose SQ KAPLAN RF: 0 Novolog U-100 Insulin aspart 100 unit/mL solution 0 unit SQ TIDM RF: 0 prednisone 5 mg tablet 5 mg PO DAILY PRN (Reason: Shortness Of Breath Or Wheezing) RF: 0 nystatin 100,000 unit/gram powder 1 applic topical DAILY 30 Days Qty: 30 RF: 2 lisinopril 40 mg tablet 40 mg PO DAILY RF: 0 torsemide 20 mg tablet 20 mg PO DAILY RF: 0 psyllium husk [Fiber Laxative (psyllium husk)] 0.52 gram capsule 0.52 g PO DAILY RF: 0 cholecalciferol (vitamin D3) 25 mcg (1,000 unit) capsule 25 mcg PO DAILY RF: 0 topiramate [Topamax] 50 mg tablet 50 mg PO QAM RF: 0 pravastatin 20 mg tablet 20 mg PO QAM RF: 0 Tresiba FlexTouch U-200 200 unit/mL (3 mL) Insulin Pen 160 unit SUBCUT QAM RF: 0 naproxen sodium [Aleve] 220 mg Tablet 220 mg PO Q12H PRN (Reason: Pain) RF: 0 metoprolol succinate 25 mg tablet extended release 24 hr 25 mg PO QAM RF: 0 vitamin E 400 unit Capsule 400 unit PO QAM RF: 0 potassium gluconate 600 mg (99 mg) Tablet 99 mg PO QAM RF: 0 aspirin [Aspir-Low] 81 mg Tablet,Delayed Release (Dr/Ec) 81 mg PO QAM RF: 0 Probiotic 3 billion cell Capsule 3,000 mmu cells PO DAILY RF: 0 Discontinued sulfamethoxazole-trimethoprim [Bactrim DS] 800-160 mg tablet 1 tab PO Q12H 7 Days Qty: 14 RF: 0 Discharge Orders: Discharge Order (Routine); Ordered 03/15/21 Ordered By: Vega Holley Admission Data Admit Date/Time: 03/09/21 02:01 Attending Provider: Vega Holley Admit Provider: Geronimo Tucker Primary Care Provider: Jhon Leary Other Providers: [address] ; Lisa Cabrales ; Bc Aden I. ; Nelson Meier II ; Cathie Saha ; Power Ruth ; Rich Thorne ; Willie Massey ; [facility] ; [facility] ; Katia Ocampo
== END 2021-03-15 16:05 | disposition home health service (06) | DRG 872 ==
LOC: ED 20:19 → SUATTDRO 03-09 02:01 → EDINP 03-09 02:01 → 2W 03-09 03:49